=== PATIENT | male | born 1965 | race African-American/Black ===

== ENCOUNTER → 2017-09-26 | Outpatient (CLI) | payer OTHER ==
--- NOTE | 2017-09-26 10:32 | KCIC ---
ABDOMEN COMPLETE History: Abdominal pain Comparison: None. Findings: Multiple sonographic images of the abdomen are submitted. There is no significant abnormality of the limited visualized pancreas although poorly visualized due to bowel gas. There is diffuse coarsening of the echotexture of the liver, no focal hepatic lesion demonstrated. Right lobe of the liver measured 18.4 cm longitudinal. Abdominal aortic caliber is within normal limits up to 2.3 cm proximally. There is segmental visualization of the inferior vena cava. Right kidney measured 11.6 x 6.3 x 5.7 cm. Left kidney measured 10.7 x 5.2 x 5.1 cm. There is no hydronephrosis of either kidney. There is a hypoechoic lesion of the mid left kidney 1.3 x 1.4 x 1.4 cm in size, slight increased through transmission. Gallbladder is present without intraluminal abnormality, wall thickening, pericholecystic fluid. Common bile duct is within normal limits at 0.5 cm. No free fluid is demonstrated. Impression: 1. There is hepatic steatosis and hepatomegaly. 2. There is small left renal cyst. Electronically signed by: Calos Spence MD (09/26/2017 10:28 AM) [facility]
== END | disposition home or self-care (01) ==
LOC: KCIC US 07:48
PROVIDERS: ATTEND Internal Medicine Gastroenterology
DX: K76.0 Fatty (change of) liver, not elsewhere classified (principal); N28.1 Cyst of kidney, acquired
CPT/HCPCS: 76700

== ENCOUNTER → 2021-10-03 | Outpatient (CLI) | payer OTHER ==
[~2021-10-03] MED LIST: ASPI-630 PO; DEXT10TA23 PO; FINA5TAB4 PO; OXYC-325 PO
== END ==
LOC: LAB 10:16
PROVIDERS: ATTEND Surgery
DX: Z01.812 Encounter for preprocedural laboratory examination (principal); Z20.822 Contact with and (suspected) exposure to COVID-19; K42.9 Umbilical hernia without obstruction or gangrene; R22.40 Localized swelling, mass and lump, unspecified lower limb
CPT/HCPCS: U0003; U0005

== ENCOUNTER 2021-10-08 10:41 | Day surgery (SDC) | payer OTHER ==
[~2021-10-08] VITALS: Ht 167.6 cm; Wt 115.0 kg
[~2021-10-08 10:41] MED LIST changes: +HYDROmorphone 2 MG/ML VIAL IVP PRN; +IV RINGERS,LACTATED 1000ML 1,000 ML IV SCH; +MORPHINE SULFATE 2 MG/ML INJ. IVP PRN; -OXYC-325 PO; +PROCHLORPERAZINE 10 MG/2 ML VIAL. IVP PRN; +fentaNYL PF VIAL 100 MCG/2 ML VIAL IVP PRN
[2021-10-08 11:04] VITALS: BP 171/98
[2021-10-08] MEDS ORDERED: LIDOCAINE 2% PF 5 ML VIAL. ONE (12:35)
[2021-10-08] MEDS ORDERED: PROPOFOL 10 MG/ML (20ML) VIAL. IV ONE ×2 (12:35→14:52)
[2021-10-08] MEDS ORDERED: fentaNYL PF VIAL 100 MCG/2 ML VIAL ONE ×2 (12:35→14:36)
[2021-10-08] MEDS ORDERED: LIDOCAINE 1%/EPI 1:100,000 20 ML VIAL. ONE (12:36)
[2021-10-08] MEDS ORDERED: BUPIVACAINE-EPI 0.5% 30 ML VIAL KIT. ONE (12:36)
[2021-10-08] MEDS ORDERED: KETAMINE HCL IN NACL, ISO-OSM 50 MG/5 ML SYRINGE ONE (13:13)
[2021-10-08] MEDS ORDERED: MIDAZOLAM HCL/PF 2 MG/2 ML VIAL. ONE (13:15)
[2021-10-08] MEDS ORDERED: GLYCOPYRROLATE 1 MG/5 ML VIAL. ONE (13:16)
[2021-10-08] MEDS ORDERED: ESMOLOL 100 MG/10 ML VIAL. IVP ONE ×2 (13:24→14:52)
[2021-10-08] MEDS ORDERED: SUCCINYLCHOLINE 200 MG/10 ML VIAL. ONE (13:26)
[2021-10-08] MEDS ORDERED: ROCURONIUM 50 MG/5 ML VIAL. ONE (14:02)
[2021-10-08] MEDS ORDERED: SUGAMMADEX SODIUM 200 MG/2 ML VIAL. IVP ONE (14:15)
[2021-10-08] MEDS ORDERED: PHENYLEPHRINE in 0.9% NACL PF 1 MG/10 ML SYRINGE. IV ONE (14:20)
--- NOTE | 2021-10-08 15:07 | PDOC4 ---
Operative Note Operative Note Operative Note: Preoperative Diagnosis: Umbilical hernia, right thigh mass, right scalp mass Postoperative Diagnosis: Same Procedure: Umbilical hernia pair with mesh, excision of right thigh mass 5 X 3 cm, excision of right scalp mass 4 X 3 cm Surgeon: Carlos [employer] Manager: Ronnie Tompkins MS 4 Anesthesia: General EBL: 20 mL Specimen: Right thigh mass, 5 x 3 cm to pathology; right scalp mass, 4 x 3 cm to pathology Drains: None Complications: None Indication: The patient is a 56-year-old gentleman who was referred with subcutaneous masses of his right thigh and scalp. He requests excision. In addition he has a reducible umbilical hernia. The plan is to proceed with repai r of the hernia and excision of the masses. The risks of surgery were discussed which include bleeding, infection, recurrence, pain, anesthetic risk, potential need for additional surgery procedure. He understands and would like to proceed. Description: The patient was taken the operating room and placed supine in the operating table. General anesthesia was performed. The abdomen is prepped with ChloraPrep and draped with sterile towels, sheets and an Ioban. A curved infraumbilical incision was made in the skin with a scalpel. Cautery dissection was carried down to the fascia. The umbilical tissue was elevated off the fascia exposing a small hernia defect. A preperitoneal plane was developed circumferentially using blunt dissection. A small Ventralex ST mesh was then placed in this preperitoneal plane. The mesh was sutured into position with 0 Prolene in a horizontal mattress fashion. The fascial edges were closed over the mesh with 0 Prolene. The umbilicus was secured back to the fascia with 0 V icryl. The subcutaneous tissue was closed with 3-0 Vicryl and skin approximated 4-0 Monocryl. The skin was infiltrated with half percent Marcaine with epinephrine. Steri-Strips and a sterile dressing were applied. Attention was then directed to the right thigh mass. The skin was prepped and draped in a standard surgical manner. An elliptical incision was made around the border of the mass including some of the redundant skin. Cautery dissection was carried down into the subcutaneous tissues. The mass was comprised of adipose tissue consistent with a lipoma. The mass was mobilized from the surrounding tissues and fully excised and sent to pathology. The mass measured 5 x 3 cm. Hemostasis was achieved with cautery. The subcutaneous tissue was closed with 3-0 Vicryl and skin approximated with 4-0 Monocryl. We then directed attention to the subcutaneous scalp mass located posterior to the right ear. An incision was made overlying the mass. Cautery dissection was carried down into the subcutaneous tissues. The mass was comprised of lobulated adipose tissue consistent with a lipoma. The mass was mobilized from the surrounding tissues and fully excised. The mass measured 4 x 3 cm and was sent to pathology. Hemostasis was achieved with cautery. The subcutaneous tissue was approximated with 3-0 Vicryl and skin closed with 4-0 Monocryl. The skin was infiltrated with half percent Marcaine with epinephrine. Sterile dressings were then applied. The patient tolerated the procedure well and was sent to the recovery room in stable condition. At the end the case all counts were correct. PRASAD PAEZ MD Oct 08, 2021 15:07
[2021-10-08] MEDS ORDERED: OXYC-325 PO (15:09)
--- NOTE | 2021-10-08 15:12 | DISCH ---
DISCHARGE INSTRUCTIONS Condition on Discharge Condition on Discharge: Stable Activity After Discharge Activity Instructions for Disc: Other, see below (No lifting over 20 lbs X 4 weeks, no driving while taking pain meds) Diet after Discharge Diet after Discharge: Regular Wound Incision Care Wound/Incision Care: Other, see below (keep dressings clean and dry X 72 hours, may then remove and shower) Follow-Up Follow up with: Dr Paez in office in 2 weeks, call for appointment [phone] PRASAD PAEZ MD Oct 08, 2021 15:12
[2021-10-08] MEDS ORDERED: oxyCODONE/APAP 5/325 1 TAB TABLET PO ONE (16:45)
[2021-10-08] MEDS ORDERED: oxyCODONE/APAP 5/325 1 TAB TABLET ONE (16:50)
[2021-10-08 17:00] VITALS: BP 153/88
--- NOTE | 2021-10-11 22:30 | PATHOLOGY ---
[facility] Accession Number: [id number] . 01 Material submitted: . PART A: thigh - RIGHT THIGH MASS, 5CM X 3CM. Modifiers: right PART B: head - RIGHT HEAD MASS, 4CM X 3CM. Modifiers: right . 01 Clinical history: . UMBILICAL HERNIA, SCALP MASS, R THIGH MASS UMBILICAL HERNIA REPAIR SCALP EXCISION, R THIGH EXCISION . 02 Diagnosis: A. Skin and subcutaneous tissue, right thigh mass excision: - Lipoma. . B. Segment of fibroadipose and focal attached skeletal muscle tissue, right head mass excision: - Lipoma. (JPM:marie; 10/11/2021) S 10/11/2021 1136 Local . 02 Comment: There is no evidence of malignancy. (JPM:marie; 10/11/2021) . 02 Electronically signed: . Benoit Petty MD, Pathologist NPI- [id number] . 01 Gross description: . A. The specimen is received in formalin, labeled "John Brown, right thigh mass". Received is an ellipse of palacios-brown, wrinkled skin with attached underlying lobulated tissue measuring 4.8 x 3.5 x 3.3 cm in greatest dimensions. Sectioning reveals pale yellow, lobulated cut surfaces with no grossly distinct nodules or lesions. The specimen is submitted representatively in cassettes A1 and A2. . B. The specimen is received in formalin, labeled "John Brown, right head mass". Received is a segment of yellow-talavera, ragged lobulated tissue measuring 3.9 x 3.5 x 2.4 cm in greatest dimensions. The surgical margin is inked. Sectioning reveals pale yellow, lobulated cut surfaces throughout. The specimen is submitted representatively in cassettes B1 and B2. (CAA; 10/10/2021) QAC/QAC 10/10/2021 1123 Local . 02 Pathologist provided ICD-10: D17.39 . 02 CPT . 202126, [id number] Specimen Comment: A courtesy copy of this report has been sent to [phone], [phone] Specimen Comment: [id number] Specimen Comment: Report sent to / DR THAKUR Specimen Comment: A duplicate report has been generated due to demographic updates. Performed at: 01 [facility] [address], [place] [id number] MD Adam Castillo MD Phone: [phone] Performed at: 02 [facility] [address] [place], [place] [id number] MD Benoit Petty MD Phone: [phone]
== END 2021-10-08 17:26 | disposition home or self-care (01) ==
LOC: SURG 10:41
PROVIDERS: ATTEND Surgery
DX: K42.9 Umbilical hernia without obstruction or gangrene (principal); R22.0 Localized swelling, mass and lump, head; R22.41 Localized swelling, mass and lump, right lower limb; D17.39 Benign lipomatous neoplasm of skin and subcutaneous tissue of other sites; N40.0 Benign prostatic hyperplasia without lower urinary tract symptoms; G47.30 Sleep apnea, unspecified; Z79.899 Other long term (current) drug therapy; Z98.890 Other specified postprocedural states; Z79.82 Long term (current) use of aspirin; Z87.891 Personal history of nicotine dependence; Z72.89 Other problems related to lifestyle
CPT/HCPCS: 21012; 27337; 49585; 88304; A4213; A4364; A4930; A6402; C1781; J0330; J0690; J2250; J2370; J2704; J3010; J3490; A4452

== ENCOUNTER 2022-02-15 12:32 | Inpatient (IN) | payer OTHER ==
[~2022-02-15] VITALS: Ht 167.6 cm; Wt 117.9 kg
[~2022-02-15 12:32] MED LIST changes: -HYDROmorphone 2 MG/ML VIAL IVP PRN; -IV RINGERS,LACTATED 1000ML 1,000 ML IV SCH; -MORPHINE SULFATE 2 MG/ML INJ. IVP PRN; +OXYC-325 PO; -PROCHLORPERAZINE 10 MG/2 ML VIAL. IVP PRN; -fentaNYL PF VIAL 100 MCG/2 ML VIAL IVP PRN
[2022-02-15] MEDS ORDERED: HYDROmorphone 2 MG/ML INJ. IVP ONE ×2 (13:15→15:45)
[2022-02-15] MEDS ORDERED: ONDANSETRON PF 4 MG/2 ML VIAL. IVP ONE (13:15)
[2022-02-15] MEDS ORDERED: IV NORMAL SALINE 1000ML BAG 1,000 ML IV ONE (13:15)
--- NOTE | 2022-02-15 13:23 | PHYS DOC ---
Past Medical History Additional Past Medical Histor: pancreatic cyst Past Surgical History: Other Additional Past Surgical Histo: hernia repair, turp Adult General Chief Complaint Chief Complaint: ABDOMINAL PAIN HPI HPI Patient is a 57 year old male presenting to the emergency department for evaluation of abdominal pain nausea and vomiting that has been going on for at least the past 2 to 3 days. He says he has not had a bowel movement or pass gas in the past 3 days as well. He went to [facility] 2 days ago and had labs and imaging done he was told he may have pancreatitis and possible bowel infection and was sent home but he says he is feeling worse. He went to see his primary care provider today and the primary care provider Dr. Soto said that he was in significant pain and that he should not go home and sent him here to our emergency department. Patient says the emesis is nonbloody nonbilious. He appears uncomfortable but is nontoxic with tachycardia hypertension and fever noted. Review of Systems Review of Systems Constitutional: Denies fever or chills [] Eyes: Denies change in visual acuity, redness, or eye pain [] HENT: Denies nasal congestion or sore throat [] Respiratory: Denies cough or shortness of breath [] Cardiovascular: No additional information not addressed in HPI [] GI: + abdominal pain, nausea, vomiting. No bloody stools or diarrhea [] : Denies dysuria or hematuria [] Musculoskeletal: Denies back pain or joint pain [] Integument: Denies rash or skin lesions [] Neurologic: Denies headache, focal weakness or sensory changes [] All other systems were reviewed and found to be within normal limits, except as documented in this note. Current Medications Current Medications Current Medications Medications (Trade) Dose Ordered Sig/Chirag Start Time Stop Time Status Last Admin Dose Admin Hydromorphone HCl (Dilaudid) 1 mg 1X ONCE 02/15/22 13:15 02/15/22 13:17 DC 02/15/22 13:37 1 MG Ondansetron HCl (Zofran) 4 mg 1X ONCE 02/15/22 13:15 02/15/22 13:17 DC 02/15/22 13:34 4 MG Sodium Chloride 1,000 ml @ 1,000 mls/hr 1X ONCE 02/15/22 13:15 02/15/22 14:14 DC 02/15/22 13:30 1,000 MLS/HR Allergies Allergies Allergies Coded Allergies Type Severity Reaction Last Updated Verified No Known Drug Allergies 10/08/21 No Physical Exam Physical Exam Constitutional: Well developed, well nourished, no acute distress, non-toxic appearance. [] HENT: Normocephalic, atraumatic, bilateral external ears normal, oropharynx rene st, no oral exudates, nose normal. [] Eyes: PERRLA, EOMI, conjunctiva normal, no discharge. [] Neck: Normal range of motion, no tenderness, supple, no stridor. [] Cardiovascular:Heart rate regular rhythm, no murmur [] Lungs & Thorax: Bilateral breath sounds clear to auscultation [] Abdomen: Bowel sounds normal, soft, distended with pain in all quadrants but no rebound or guarding. Skin: Warm, dry, no erythema, no rash. [] Back: No tenderness, no CVA tenderness. [] Extremities: No tenderness, no cyanosis, no clubbing, ROM intact, no edema. [] Neurologic: Alert and oriented X 3, normal motor function, normal sensory function, no focal deficits noted. [] Current Patient Data Vital Signs Vital Signs Date Time Temp Pulse Resp B/P (MAP) Pulse Ox O2 Delivery O2 Flow Rate FiO2 02/15/22 13:37 20 92 Room Air 02/15/22 12:42 100.2 110 154/92 (112) 100.2 Lab Values Laboratory Tests Test 02/15/22 13:00 02/15/22 13:15 Urine Collection Type Unknown Urine Color (Auto) Yellow Urine Turbidity Clear Urine pH (Auto) 6.0 (<5.0-8.0) Urine Specific Mobile 1.029 (1.000-1.030) Urine Protein (Auto) 100 mg/dL (Negative) Urine Glucose (Auto)(UA) Negative mg/dL (Negative) Urine Ketones (Auto) 40 mg/dL (Negative) Urine Blood (Auto) Small (Negative) Urine Nitrite Negative (Negative) Urine Bilirubin (Auto) Negative (Negative) Urine Urobilinogen (Auto) Normal mg/dL (Normal) Urine Leukocyte Esterase (Auto) Negative (Negative) Urine RBC 1-2 /HPF (0-2) Urine WBC 20-40 /HPF (0-4) Urine Squamous Epithelial Cells Few /LPF Urine Bacteria 0 /HPF (0-FEW) Urine Mucus Mod /LPF White Blood Count 14.9 x10^3/uL (4.0-11.0) H Red Blood Count 4.61 x10^6/uL (4.30-5.70) Hemoglobin 12.4 g/dL (13.0-17.5) L Hematocrit 37.7 % (39.0-53.0) L Mean Corpuscular Volume 82 fL (79-100) Mean Corpuscular Hemoglobin 27 pg (25-35) Mean Corpuscular Hemoglobin Concent 33 g/dL (31-37) Red Cell Distribution Width 14.5 % (11.5-14.5) Platelet Count 232 x10^3/uL (140-400) Neutrophils (%) (Auto) 83 % (31-73) H Lymphocytes (%) (Auto) 8 % (24-48) L Monocytes (%) (Auto) 9 % (0-9) Eosinophils (%) (Auto) 0 % (0-3) Basophils (%) (Auto) 0 % (0-3) Neutrophils # (Auto) 12.4 x10^3/uL (1.8-7.7) H Lymphocytes # (Auto) 1.2 x10^3/uL (1.0-4.8) Monocytes # (Auto) 1.3 x10^3/uL (0.0-1.1) H Eosinophils # (Auto) 0.0 x10^3/uL (0.0-0.7) Basophils # (Auto) 0.0 x10^3/uL (0.0-0.2) Laboratory Tests 02/15/22 13:15 EKG EKG [] Radiology/Procedures Radiology/Procedures [] Course & Med Decision Making Course & Med Decision Making I will check labs and imaging treat symptoms and reassess. Patient has leukocytosis and ketonuria in addition to his intractable abdominal pain and nausea. Given his failure of outpatient treatment we will plan on admission for further observation and treatment. Patient admitted in stable condition to Dr. Marcos. Eugenio Disclaimer Eugenio Disclaimer This electronic medical record was generated, in whole or in part, using a voice recognition dictation system. Departure Departure Impression: Primary Impression: Intractable abdominal pain Additional Impressions: Leukocytosis Ketonuria Failure of outpatient treatment Disposition: 09 ADMITTED INPATIENT Admitting Physician: SRI Cabrera) Condition: IMPROVED Referrals: YOUNG THAKUR (PCP) Problem Qualifiers BRISSA VANG DO Feb 15, 2022 13:22
[2022-02-15 13:48] LABS: BACTERIA,URINE 0 /HPF (0-FEW); WBC,URINE 20-40 /HPF (0-4)
[2022-02-15 13:59] LABS: BASO % 0 % (0-3); EOS % 0 % (0-3); HEMATOCRIT 37.7 % (39.0-53.0); HEMOGLOBIN 12.4 g/dL (13.0-17.5); LYMPH # 1.2 x10^3/uL (1.0-4.8); LYMPH % 8 % (24-48); MEAN CORPUSCULAR HEMOGLOBIN 27 pg (25-35); MEAN CORPUSCULAR HGB CONC 33 g/dL (31-37); MEAN CORPUSCULAR VOLUME 82 fL (79-100); MONO # 1.3 x10^3/uL (0.0-1.1); MONO % 9 % (0-9); NEUT # 12.4 x10^3/uL (1.8-7.7); NEUT % 83 % (31-73); PLATELET COUNT 232 x10^3/uL (140-400); RED BLOOD COUNT 4.61 x10^6/uL (4.30-5.70); RED CELL DISTRIBUTION WIDTH 14.5 % (11.5-14.5); WHITE BLOOD COUNT 14.9 x10^3/uL (4.0-11.0)
[2022-02-15] MEDS ORDERED: ONDANSETRON PF 4 MG/2 ML VIAL. IVP PRN ×2 (14:45→16:30)
[2022-02-15 14:50] LABS: CALCIUM 8.6 mg/dL (8.5-10.1); GFR 92.9
[2022-02-15 14:55] LABS: ALBUMIN 3.1 g/dL (3.4-5.0); ALBUMIN/GLOBULIN RATIO 0.8 (1.0-1.7); TOTAL BILIRUBIN 0.9 mg/dL (0.2-1.0); TOTAL PROTEIN 7.2 g/dL (6.4-8.2)
[2022-02-15] MEDS ORDERED: IOHEXOL 300 MG/ML 100ML VIAL. IV ONE (15:15)
[2022-02-15] MEDS ORDERED: CONTRAST GIVEN. MC PRN (15:15)
[2022-02-15 16:15] VITALS: BP 151/86
--- NOTE | 2022-02-15 16:24 | PDOC1 ---
History and Physical Date of Service: DOS: DATE: 02/15/22 TIME: 16:24 Chief Complaint: Chief Complain: abdominal pain History of Present Illness: HPI: Patient is a 57 year old male presenting to the emergency department for evaluation of abdominal pain nausea and vomiting that has been going on for at least the past 2 to 3 days. He says he has not had a bowel movement or pass gas in the past 3 days as well. He went to [facility] 2 days ago and had labs and imaging done he was told he may have pancreatitis with multiple cysts and possible bowel infection and was sent home but he says he is feeling worse. He went to see his primary care provider today and the primary care provider Dr. Soto said that he was in significant pain and that he should not go home and sent him here to our emergency department. Patient says the emesis is nonbloody nonbilious. He appears uncomfortable but is nontoxic with tachycardia hypertension and fever noted. Past Medical/Surgical History: PMH/PSH: Additional Past Medical Histor: pancreatic cyst Past Surgical History: Other Additional Past Surgical Histo: hernia repair, turp Allergies: Allergies: Coded Allergies: No Known Drug Allergies (Unverified , 10/08/21) Family History: Family History: HTN Social History: Social History: former smoker; occ alcohol use, denies drug use Current Medications: Current Medications Current Medications Hydromorphone HCl (Dilaudid) 1 mg 1X ONCE IVP Last administered on 02/15/22at 13:37; Start 02/15/22 at 13:15; Stop 02/15/22 at 13:17; Status DC Ondansetron HCl (Zofran) 4 mg 1X ONCE IVP Last administered on 02/15/22at 13:34; Start 02/15/22 at 13:15; Stop 02/15/22 at 13:17; Status DC Sodium Chloride 1,000 ml @ 1,000 mls/hr 1X ONCE IV Last administered on 02/15/22at 13:30; Start 02/15/22 at 13:15; Stop 02/15/22 at 14:14; Status DC Ondansetron HCl (Zofran) 4 mg PRN Q8HRS PRN IVP NAUSEA/VOMITING; Start 02/15/22 at 14:45; Stop 02/16/22 at 14:44 Iohexol (Omnipaque 300 Mg/ml) 75 ml 1X ONCE IV Last administered on 02/15/22at 15:39; Start 02/15/22 at 15:15; Stop 02/15/22 at 15:16; Status DC Info (CONTRAST GIVEN -- Rx MONITORING) 1 each PRN DAILY PRN MC SEE COMMENTS; Start 02/15/22 at 15:15; Stop 02/17/22 at 15:14 Hydromorphone HCl (Dilaudid) 1 mg 1X ONCE IVP Last administered on 02/15/22at 15:55; Start 02/15/22 at 15:45; Stop 02/15/22 at 15:46; Status DC Piperacillin Sod/ Tazobactam Sod (Zosyn Per Pharmacy) 1 each PRN DAILY PRN MC SEE COMMENTS; Start 02/15/22 at 16:30; Status UNV Pantoprazole Sodium (PROTONIX VIAL for IV PUSH) 40 mg DAILYAC IVP ; Start 02/15/22 at 16:30 Polyethylene Glycol (miraLAX PACKET) 17 gm DAILY PO ; Start 02/15/22 at 16:30; Status UNV Multi-Ingredient Mouthwash/Gargle (Gi Cocktail) 20 ml PRN QID PRN PO CHEST PAIN; Start 02/15/22 at 16:30; Status UNV Aspirin (Aspirin Chewable) 81 mg DAILY PO ; Start 02/16/22 at 09:00; Status UNV Finasteride (Proscar) 5 mg DAILY PO ; Start 02/16/22 at 09:00; Status UNV Ondansetron HCl (Zofran) 4 mg PRN Q6HRS PRN IVP NAUSEA/VOMITING; Start 02/15/22 at 16:30; Status UNV Prochlorperazine Edisylate (Compazine) 10 mg PRN Q6HRS PRN IVP NAUSEA/VOMITING; Start 02/15/22 at 16:30; Status UNV Calcium Carbonate/ Glycine (Tums) 500 mg PRN Q3HRS PRN PO UPSET STOMACH; Start 02/15/22 at 16:30; Status UNV Zolpidem Tartrate (Ambien) 5 mg PRN QHS PRN PO INSOMNIA, MAY REPEAT IN 1HR; Start 02/15/22 at 16:30; Status UNV Info (Non-Icu Electrolyte Protocol) 1 ea PRN DAILY PRN MC SEE COMMENTS; Start 02/15/22 at 16:30; Status UNV Morphine Sulfate (Morphine Sulfate) 1 mg PRN Q1HR PRN IV PAIN; Start 02/15/22 at 16:30; Status UNV Morphine Sulfate (Morphine Sulfate) 2 mg PRN Q1HR PRN IV PAIN; Start 02/15/22 at 16:30; Status UNV Acetaminophen (Tylenol) 650 mg PRN Q6HRS PRN PO Headaches, Temp > 101.5F; Start 02/15/22 at 16:30; Status UNV Senna/Docusate Sodium (Senna Plus) 1 tab BID PO ; Start 02/15/22 at 21:00; Status UNV Heparin Sodium (Porcine) (Heparin Sodium) 5,000 unit Q8HRS SQ ; Start 02/15/22 at 22:00; Status UNV Active Scripts Active Percocet 5-325 mg Tablet (Oxycodone HCl/Acetaminophen) 1 Each Tablet 1-2 Tab PO Q4-6HRS PRN MDD 2 Tablet(s) 7 Days Reported Finasteride 5 Mg Tablet 5 Mg PO DAILY Aspirin 81 Mg Tab.chew 81 Mg PO DAILY Adderall 10 Mg Tablet (Dextroamphetamine/Amphetamine) 10 Mg Tablet 10 Mg PO BID ROS: Review of Systems Review of System REVIEW OF SYSTEMS: GENERAL: Denies weakness SKIN: No bruising, hair changes or rashes. EYES: No blurred, double or loss of vision. NOSE AND THROAT: No history of nosebleeds, hoarseness or sore throat. HEART: No history of palpitations, chest pain or shortness of breath on exertion. LUNGS: Denies cough, hemoptysis, wheezing or shortness of breath. GASTROINTESTINAL: Denies changes in appetite, nausea, vomiting, diarrhea or constipation. GENITOURINARY: No history of frequency, urgency, hesitancy or nocturia. NEUROLOGIC: Denies history of numbness, tingling, or tremor. PSYCHIATRIC: No history of panic, anxiety or depression. ENDOCRINE: No history of heat or cold intolerance, polyuria or polydipsia. EXTREMITIES: Denies joint pain, pain on walking or stiffness. Physical Exam: Vital Signs: Vital Signs Date Time Temp Pulse Resp B/P (MAP) Pulse Ox O2 Delivery O2 Flow Rate FiO2 02/15/22 15:55 18 99 Nasal Cannula 1.0 02/15/22 15:30 88 138/81 (100) 02/15/22 12:42 100.2 100.2 Physcial Exam: GEN: No apparent distress. Alert and oriented HEENT: Normal cephalic, atraumatic, external auditory canals are patent EYES: Extraocular muscles are intact, pupil are equally round and reactive to light and accommodation MUSCULOSKELETAL: Well developed , well nourished, good range of motion ENDOCRINE: No thyromegaly was palpated LYMPHATICS: No cervical chain or axillary nodes were noted HEMATOPOIETIC: No bruising NECK: Supple, no JVD, no thyromegaly was noted LUNGS: Clear to auscultation in all lung weeks without rhonchi or wheezing HEART: RRR, S!, S2 present. Peripheral pulses intact, no obvious murmurs noted ABDOMEN: Soft, nontender. Positive bowel sounds, no organomegaly, normal bowel sounds EXTREMITIES: Without clubbing, cyanosis, or edema. Pedal pulses intact. Negative Homans sign NEUROLOGIC: Normal speech and tone. A&O x 3, moves all extremities, no obvious focal deficits PSYCHIATRIC: Normal affect, normal mood. Stable SKIN: No ulcerations or rashes, good skin turgor, no jaundice VASCULAR: Good capillary refill, neurovascular bundle appears to be intact Labs: Labs: Laboratory Tests Test 02/15/22 13:00 02/15/22 13:15 02/15/22 14:15 Urine Collection Type Unknown Urine Color (Auto) Yellow Urine Turbidity Clear Urine pH (Auto) 6.0 (<5.0-8.0) Urine Specific [place] 1.029 (1.000-1.030) Urine Protein (Auto) 100 mg/dL (Negative) Urine Glucose (Auto)(UA) Negative mg/dL (Negative) Urine Ketones (Auto) 40 mg/dL (Negative) Urine Blood (Auto) Small (Negative) Urine Nitrite Negative (Negative) Urine Bilirubin (Auto) Negative (Negative) Urine Urobilinogen (Auto) Normal mg/dL (Normal) Urine Leukocyte Esterase (Auto) Negative (Negative) Urine RBC 1-2 /HPF (0-2) Urine WBC 20-40 /HPF (0-4) Urine Squamous Epithelial Cells Few /LPF Urine Bacteria 0 /HPF (0-FEW) Urine Mucus Mod /LPF White Blood Count 14.9 x10^3/uL (4.0-11.0) Red Blood Count 4.61 x10^6/uL (4.30-5.70) Hemoglobin 12.4 g/dL (13.0-17.5) Hematocrit 37.7 % (39.0-53.0) Mean Corpuscular Volume 82 fL (79-100) Mean Corpuscular Hemoglobin 27 pg (25-35) Mean Corpuscular Hemoglobin Concent 33 g/dL (31-37) Red Cell Distribution Width 14.5 % (11.5-14.5) Platelet Count 232 x10^3/uL (140-400) Neutrophils (%) (Auto) 83 % (31-73) Lymphocytes (%) (Auto) 8 % (24-48) Monocytes (%) (Auto) 9 % (0-9) Eosinophils (%) (Auto) 0 % (0-3) Basophils (%) (Auto) 0 % (0-3) Neutrophils # (Auto) 12.4 x10^3/uL (1.8-7.7) Lymphocytes # (Auto) 1.2 x10^3/uL (1.0-4.8) Monocytes # (Auto) 1.3 x10^3/uL (0.0-1.1) Eosinophils # (Auto) 0.0 x10^3/uL (0.0-0.7) Basophils # (Auto) 0.0 x10^3/uL (0.0-0.2) Sodium Level 138 mmol/L (136-145) Potassium Level 4.0 mmol/L (3.5-5.1) Chloride Level 99 mmol/L (98-107) Carbon Dioxide Level 31 mmol/L (21-32) Anion Gap 8 (6-14) Blood Urea Nitrogen 10 mg/dL (8-26) Creatinine 1.0 mg/dL (0.7-1.3) Estimated GFR (Cockcroft-Gault) 92.9 BUN/Creatinine Ratio 10 (6-20) Glucose Level 117 mg/dL (70-99) Calcium Level 8.6 mg/dL (8.5-10.1) Total Bilirubin 0.9 mg/dL (0.2-1.0) Aspartate Amino Transf (AST/SGOT) 13 U/L (15-37) Alanine Aminotransferase (ALT/SGPT) 22 U/L (16-63) Alkaline Phosphatase 65 U/L (46-116) Total Protein 7.2 g/dL (6.4-8.2) Albumin 3.1 g/dL (3.4-5.0) Albumin/Globulin Ratio 0.8 (1.0-1.7) Lipase 120 U/L (73-393) Laboratory Tests Test 02/15/22 13:00 02/15/22 13:15 02/15/22 14:15 Urine Collection Type Unknown Urine Color (Auto) Yellow Urine Turbidity Clear Urine pH (Auto) 6.0 (<5.0-8.0) Urine Specific [place] 1.029 (1.000-1.030) Urine Protein (Auto) 100 mg/dL (Negative) Urine Glucose (Auto)(UA) Negative mg/dL (Negative) Urine Ketones (Auto) 40 mg/dL (Negative) Urine Blood (Auto) Small (Negative) Urine Nitrite Negative (Negative) Urine Bilirubin (Auto) Negative (Negative) Urine Urobilinogen (Auto) Normal mg/dL (Normal) Urine Leukocyte Esterase (Auto) Negative (Negative) Urine RBC 1-2 /HPF (0-2) Urine WBC 20-40 /HPF (0-4) Urine Squamous Epithelial Cells Few /LPF Urine Bacteria 0 /HPF (0-FEW) Urine Mucus Mod /LPF White Blood Count 14.9 x10^3/uL (4.0-11.0) Red Blood Count 4.61 x10^6/uL (4.30-5.70) Hemoglobin 12.4 g/dL (13.0-17.5) Hematocrit 37.7 % (39.0-53.0) Mean Corpuscular Volume 82 fL (79-100) Mean Corpuscular Hemoglobin 27 pg (25-35) Mean Corpuscular Hemoglobin Concent 33 g/dL (31-37) Red Cell Distribution Width 14.5 % (11.5-14.5) Platelet Count 232 x10^3/uL (140-400) Neutrophils (%) (Auto) 83 % (31-73) Lymphocytes (%) (Auto) 8 % (24-48) Monocytes (%) (Auto) 9 % (0-9) Eosinophils (%) (Auto) 0 % (0-3) Basophils (%) (Auto) 0 % (0-3) Neutrophils # (Auto) 12.4 x10^3/uL (1.8-7.7) Lymphocytes # (Auto) 1.2 x10^3/uL (1.0-4.8) Monocytes # (Auto) 1.3 x10^3/uL (0.0-1.1) Eosinophils # (Auto) 0.0 x10^3/uL (0.0-0.7) Basophils # (Auto) 0.0 x10^3/uL (0.0-0.2) Sodium Level 138 mmol/L (136-145) Potassium Level 4.0 mmol/L (3.5-5.1) Chloride Level 99 mmol/L (98-107) Carbon Dioxide Level 31 mmol/L (21-32) Anion Gap 8 (6-14) Blood Urea Nitrogen 10 mg/dL (8-26) Creatinine 1.0 mg/dL (0.7-1.3) Estimated GFR (Cockcroft-Gault) 92.9 BUN/Creatinine Ratio 10 (6-20) Glucose Level 117 mg/dL (70-99) Calcium Level 8.6 mg/dL (8.5-10.1) Total Bilirubin 0.9 mg/dL (0.2-1.0) Aspartate Amino Transf (AST/SGOT) 13 U/L (15-37) Alanine Aminotransferase (ALT/SGPT) 22 U/L (16-63) Alkaline Phosphatase 65 U/L (46-116) Total Protein 7.2 g/dL (6.4-8.2) Albumin 3.1 g/dL (3.4-5.0) Albumin/Globulin Ratio 0.8 (1.0-1.7) Lipase 120 U/L (73-393) Assessment/Plan Assessment/Plan Intractable abdominal pain, constipation, sepsis, pancreatitis with fluid collection, partial splenic vein thrombosis -2 to 3-day history abdominal pain. Constipation. Failed outpatient treatment -Imaging on presentation here with fluid collections in pancreas. -We will provide as needed pain control. -Consult interventional radiology to see if any drainable fluid collection -If nothing will likely need GI consult -Home meds as indicated -DVT prophylaxis -We will do full liquid diet -Laxatives Justifications for Admission Other Justification AJAY FRAZIER MD Feb 15, 2022 16:24
--- NOTE | 2022-02-15 16:26 | RAD ---
Study: CT abdomen/pelvis with intravenous contrast Indication: Epigastric abdominal pain. History of pancreatitis. Comparison: None. Technique: Helical CT imaging performed of the abdomen and pelvis after the intravenous administratio n of 75 cc contrast. Sagittal and coronal reformats were obtained. One or more of the following individualized dose reduction techniques were utilized for this examinat ion: 1. Automated exposure control 2. Adjustment of the mA and/or kV according to patient size 3. Use of iterative reconstruction technique. Findings: Asymmetric elevation of the left hemidiaphragm with overlying volume loss. Minimal basilar volume los s on the right. Hepatic steatosis. Low-attenuation focus within the more anterior aspect of the liver measuring 0.8 c m on image 24 series 2. This is incompletely characterized based on size but is statistically most li annie benign. No CT manifestations of acute cholecystitis. Nondilated biliary tree. Unremarkable adren al glands. The spleen is within normal limits for size. Pancreatic/peripancreatic fluid collection along the cephalad margin of the pancreatic tail measuring 7.3 x 6.3 x 6.8 cm. Internal density of approximately 15 Hounsfield units. The collection is walled off. Surrounding inflammation and a small amount of free fluid. Small focus of mineralization along t he cephalad margin of the fluid collection. Relatively homogeneous attenuation along the rest of the pancreas and without significant peripancreatic inflammation elsewhere. Nondilated main pancreatic du ct. Left larger than right hypoattenuating foci scattered throughout the kidneys. The larger of these paris sure cystic density. Many are too small to characterize. No nephrolithiasis or collecting system dila tation. Unremarkable bladder. Prostatomegaly measuring close to 6 cm in maximum dimension. No significant abnormality of the colon. Normal appendix. No pathologic dilatation of small bowel. In flammatory changes associated with the pancreatic abnormalities along the stomach greater curvature a t the fundus/proximal body. The fundus of the stomach is mildly deformed by the peripancreatic fluid collection. Mild calcific atherosclerosis. Patent central portal veins and SMV. Possible thrombosis of a portion of the splenic vein approaching the hilum, reference images 26 through 28 series 2. No evidence for a pseudoaneurysm. No significant lymph node enlargement. No pneumoperitoneum. There is scarring around the umbilicus. N o complex body wall hernia. Scattered degenerative/chronic osseous findings to include findings often seen with diffuse idiopathi c skeletal hyperostosis. Impression: 1. Active inflammation and a small amount of free fluid adjacent to a walled-off fluid collection as sociated with the tail of the pancreas measuring 7.3 x 6.3 x 6.8 cm. The rest of the pancreas is with in normal limits. This could be a bland collection such as an evolving pseudocyst with residual infla mmation from pancreatitis, mild active pancreatitis at the pancreatic tail superimposed upon a pseudo cyst or walled-off necrosis. An infected pseudocyst is possible but there is no internal gas. Though felt unlikely, follow-up is recommended to exclude a cystic malignancy. 2. Possible thrombosis of a splenic vein branch adjacent to the fluid collection though the majority of the splenic vein is patent. No splenic infarct or pseudoaneurysm. 3. Hepatic steatosis. 4. Multiple renal cystic foci the larger of which appear simple. Several are too small to characteri ze. 5. Prostatomegaly. Electronically signed by: TATIANA VU MD (02/15/2022 4:23 PM) [facility]
[2022-02-15] MEDS ORDERED: ZOLPIDEM 5 MG TABLET. PO PRN (16:30)
[2022-02-15] MEDS ORDERED: PROCHLORPERAZINE 10 MG/2 ML VIAL. IVP PRN (16:30)
[2022-02-15] MEDS ORDERED: PIP/TAZO PER PHARMACY MC PRN (16:30)
[2022-02-15] MEDS: POLYETHYLENE GLYCOL 3350 17 GM PACKET. PO SCH (16:30)
[2022-02-15] MEDS ORDERED: LIDO:MAALOX 1:1 20 ML SINGLE DOSE. PO PRN (16:30)
[2022-02-15] MEDS ORDERED: ELECTROLYTE (NON-ICU) PROTOCOL. MC PRN (16:30)
[2022-02-15] MEDS: PANTOPRAZOLE IV PUSH 40 MG VIAL. IVP SCH (16:30)
[2022-02-15] MEDS ORDERED: CALCIUM CARBONATE 500 MG TAB.CHEW PO PRN (16:30)
[2022-02-15] MEDS: HEPARIN for SUB-Q USE 5,000 UNIT/ML VIAL. SQ SCH ×2 (16:45→22:00)
[2022-02-15] MEDS: PIPERACILLIN/TAZOBACTAM 3.375 GM in IV NORMAL SALINE 50ML 50 ML IV SCH (17:25)
[2022-02-15] MEDS: MORPHINE SULFATE 2 MG/ML INJ. IV PRN ×2 (17:32→20:00)
[2022-02-15 19:00] VITALS: BP 139/86
[2022-02-15] MEDS: SENNOSIDES/DOCUSATE 8.6/50MG TABLET. PO SCH (20:44)
[2022-02-15 23:00] VITALS: BP 114/73
[2022-02-16] MEDS: PIPERACILLIN/TAZOBACTAM 3.375 GM in IV NORMAL SALINE 50ML 50 ML IV SCH ×4 (00:14→19:43)
[2022-02-16] MEDS: MORPHINE SULFATE 2 MG/ML INJ. IV PRN ×4 (00:16→08:44)
[2022-02-16 03:00] VITALS: BP 131/82
[2022-02-16] MEDS: HEPARIN for SUB-Q USE 5,000 UNIT/ML VIAL. SQ SCH ×3 (05:03→22:00)
[2022-02-16 07:00] VITALS: BP 100/79
--- NOTE | 2022-02-16 07:00 | NUR ---
Report received from [facility], will continue to care for patient. Pt resting in bed, no other needs.
[2022-02-16] MEDS: PANTOPRAZOLE IV PUSH 40 MG VIAL. IVP SCH (08:42)
[2022-02-16] MEDS: SENNOSIDES/DOCUSATE 8.6/50MG TABLET. PO SCH ×2 (09:00→20:47)
[2022-02-16] MEDS: FINASTERIDE 5 MG TABLET. PO SCH (09:00)
[2022-02-16] MEDS: ASPIRIN CHEWABLE 81 MG TABLET. PO SCH (09:00)
[2022-02-16] MEDS: POLYETHYLENE GLYCOL 3350 17 GM PACKET. PO SCH (09:00)
[2022-02-16 09:14] LABS: BASO % 0 % (0-3); EOS % 0 % (0-3); HEMATOCRIT 35.9 % (39.0-53.0); HEMOGLOBIN 11.6 g/dL (13.0-17.5); LYMPH # 0.8 x10^3/uL (1.0-4.8); LYMPH % 7 % (24-48); MEAN CORPUSCULAR HEMOGLOBIN 27 pg (25-35); MEAN CORPUSCULAR HGB CONC 32 g/dL (31-37); MEAN CORPUSCULAR VOLUME 83 fL (79-100); MONO % 9 % (0-9); NEUT # 9.1 x10^3/uL (1.8-7.7); NEUT % 83 % (31-73); PLATELET COUNT 211 x10^3/uL (140-400); RED BLOOD COUNT 4.34 x10^6/uL (4.30-5.70); RED CELL DISTRIBUTION WIDTH 14.5 % (11.5-14.5)
[2022-02-16 09:48] LABS: ALBUMIN 2.8 g/dL (3.4-5.0); ALBUMIN/GLOBULIN RATIO 0.6 (1.0-1.7); CALCIUM 9.1 mg/dL (8.5-10.1); GFR 92.9; POTASSIUM 3.6 mmol/L (3.5-5.1); TOTAL BILIRUBIN 0.7 mg/dL (0.2-1.0); TOTAL PROTEIN 7.7 g/dL (6.4-8.2)
[2022-02-16 11:00] VITALS: BP 146/75
[2022-02-16] MEDS: fentaNYL PF VIAL 100 MCG/2 ML VIAL IVP PRN ×3 (14:39→21:48)
[2022-02-16 15:00] VITALS: BP 138/74
--- NOTE | 2022-02-16 16:28 | RAD ---
COMPLETE ABDOMINAL ULTRASOUND Clinical History: Reason: panc cysts seen on ct, hepatic steatosis; splenic thrombosis further charac Comparison: CT abdomen and pelvis of contrast, prior day. Technique: Sonographic examination of the abdomen was performed and multiple grayscale and color Dopp ler static images were obtained. Findings: The liver is mildly increased in echogenicity. There is decreased through-transmission. There is a he patic lobe cyst measuring 1.1 x 0.8 cm. The liver measures 18.4 cm. Ultrasound is not sensitive for d etecting solid liver lesions. Portal flow is hepatopetal. The common bile duct is normal in caliber, measuring 6 mm in diameter. There is no gallbladder wall thickening. Per report, sonographic Calero sign is negative. There is no cholelithiasis or pericholecystic fluid. The pancreas is obscured due to overlying bowel gas. The right kidney is normal in echotexture and measures 13.1. The left kidney is normal in echotextur e and measures 12.5. Corticomedullary differentiation is preserved. There is no hydronephrosis. There is an interpolar right renal cyst measuring 1.4 cm. There are several left renal cysts, largest rhonda ures 2.2 cm. These renal cysts do not require follow-up. The spleen is not well seen. The spleen size appears normal. There is a fluid collection adjacent to the spleen better characterized on prior CT measuring 6.9 x 6.8 cm. The main splenic vein is patent. The proximal abdominal aorta is normal caliber. The remainder of the aorta and IVC are obscured due t o overlying bowel gas. IMPRESSION: 1. The splenic vein is patent. 2. Fatty infiltration of the liver. Mild hepatomegaly. 3. Midline structures are obscured due to overlying bowel gas. 4. There is a fluid collection adjacent to the spleen better characterized on prior CT. Electronically signed by: Carlos Lujan MD (02/16/2022 4:26 PM) [id number]
[2022-02-16 19:00] VITALS: BP 136/74
--- NOTE | 2022-02-16 21:19 | PDOC ---
[employer] PROGRESS NOTE Date of Service DOS: DATE: 02/16/22 TIME: 21:16 Chief Complaint Chief Complaint Assessment/Plan Intractable abdominal pain, constipation, sepsis, pancreatitis with fluid collection, partial splenic vein thrombosis -2 to 3-day history abdominal pain. Constipation. Failed outpatient treatment -Imaging on presentation here with fluid collections in pancreas. -We will provide as needed pain control. -Consult interventional radiology to see if any drainable fluid collection -If nothing will likely need GI consult -Home meds as indicated -DVT prophylaxis -We will do full liquid diet -Laxatives History of Present Illness History of Present Illness 02/16 patient evaluated examined at bedside. Complaining of ongoing abdominal pain. However much more controlled. IR consult pending. Informed patient may not be able to be seen by them until Friday as not an emergency and he underst ands this. Continue current otherwise. Discussed with bedside RN Vitals/I&O Vitals/I&O: Vital Signs Date Time Temp Pulse Resp B/P (MAP) Pulse Ox O2 Delivery O2 Flow Rate FiO2 02/16/22 19:00 101.6 95 18 136/74 (94) 92 Room Air 101.6 02/16/22 08:44 3.0 I & O 02/15/22 02/15/22 02/16/22 15:00 23:00 07:00 Intake Total 1250 ml 0 ml Balance 1250 ml 0 ml Physical Exam General: Alert, Oriented X3, Cooperative Heart: Regular rate, Normal S1, Normal S2 Lungs: Clear Abdomen: Other (diffusely tender) Extremities: No edema, Normal pulses Skin: No significant lesion Labs Labs: Laboratory Tests Test 02/16/22 08:00 White Blood Count 11.0 x10^3/uL (4.0-11.0) Red Blood Count 4.34 x10^6/uL (4.30-5.70) Hemoglobin 11.6 g/dL (13.0-17.5) Hematocrit 35.9 % (39.0-53.0) Mean Corpuscular Volume 83 fL (79-100) Mean Corpuscular Hemoglobin 27 pg (25-35) Mean Corpuscular Hemoglobin Concent 32 g/dL (31-37) Red Cell Distribution Width 14.5 % (11.5-14.5) Platelet Count 211 x10^3/uL (140-400) Neutrophils (%) (Auto) 83 % (31-73) Lymphocytes (%) (Auto) 7 % (24-48) Monocytes (%) (Auto) 9 % (0-9) Eosinophils (%) (Auto) 0 % (0-3) Basophils (%) (Auto) 0 % (0-3) Neutrophils # (Auto) 9.1 x10^3/uL (1.8-7.7) Lymphocytes # (Auto) 0.8 x10^3/uL (1.0-4.8) Monocytes # (Auto) 1.0 x10^3/uL (0.0-1.1) Eosinophils # (Auto) 0.0 x10^3/uL (0.0-0.7) Basophils # (Auto) 0.0 x10^3/uL (0.0-0.2) Sodium Level 139 mmol/L (136-145) Potassium Level 3.6 mmol/L (3.5-5.1) Chloride Level 101 mmol/L (98-107) Carbon Dioxide Level 30 mmol/L (21-32) Anion Gap 8 (6-14) Blood Urea Nitrogen 10 mg/dL (8-26) Creatinine 1.0 mg/dL (0.7-1.3) Estimated GFR (Cockcroft-Gault) 92.9 BUN/Creatinine Ratio 10 (6-20) Glucose Level 108 mg/dL (70-99) Calcium Level 9.1 mg/dL (8.5-10.1) Total Bilirubin 0.7 mg/dL (0.2-1.0) Aspartate Amino Transf (AST/SGOT) 10 U/L (15-37) Alanine Aminotransferase (ALT/SGPT) 21 U/L (16-63) Alkaline Phosphatase 61 U/L (46-116) Total Protein 7.7 g/dL (6.4-8.2) Albumin 2.8 g/dL (3.4-5.0) Albumin/Globulin Ratio 0.6 (1.0-1.7) Assessment and Plan Assessmemt and Plan Problems Medical Problems: (1) Failure of outpatient treatment Status: Acute (2) Intractable abdominal pain Status: Acute (3) Ketonuria Status: Acute (4) Leukocytosis Status: Acute Comment Review of Relevant I have reviewed the following items dalia (where applicable) has been applied. Medications: Current Medications Medications (Trade) Dose Ordered Sig/Chirag Route PRN Reason Start Time Stop Time Status Last Admin Dose Admin Fentanyl Citrate (Fentanyl 2ml Vial) 75 mcg PRN Q2HR PRN IVP PAIN 02/16/22 11:00 02/16/22 19:47 Justifications for Admission Other Justification AJAY FRAZIER MD Feb 16, 2022 21:19
[2022-02-16 22:59] VITALS: BP 124/77
[2022-02-17] MEDS: PIPERACILLIN/TAZOBACTAM 3.375 GM in IV NORMAL SALINE 50ML 50 ML IV SCH ×4 (00:19→17:38)
[2022-02-17] MEDS: MORPHINE SULFATE 2 MG/ML INJ. IV PRN (00:20)
[2022-02-17 03:00] VITALS: BP 129/72
[2022-02-17] MEDS: fentaNYL PF VIAL 100 MCG/2 ML VIAL IVP PRN ×6 (03:50→19:45)
[2022-02-17] MEDS: HEPARIN for SUB-Q USE 5,000 UNIT/ML VIAL. SQ SCH ×3 (06:00→20:51)
[2022-02-17 07:00] VITALS: BP 126/70
[2022-02-17] MEDS: SENNOSIDES/DOCUSATE 8.6/50MG TABLET. PO SCH ×2 (09:00→20:51)
[2022-02-17] MEDS: FINASTERIDE 5 MG TABLET. PO SCH (09:00)
[2022-02-17] MEDS: ASPIRIN CHEWABLE 81 MG TABLET. PO SCH (09:00)
[2022-02-17] MEDS: POLYETHYLENE GLYCOL 3350 17 GM PACKET. PO SCH (09:00)
[2022-02-17] MEDS: PANTOPRAZOLE IV PUSH 40 MG VIAL. IVP SCH (09:17)
[2022-02-17] MEDS: ACETAMINOPHEN 325 MG TABLET. PO PRN ×2 (09:17→19:44)
[2022-02-17 11:00] VITALS: BP 117/74
--- NOTE | 2022-02-17 14:05 | PDOC2 ---
CONSULT Date of Consult Date of Consult DATE: 02/17/22 TIME: 13:55 Reason for Consult Reason for Consult: Periumbilical abdominal pain, pancreatitis with a pancreatic cyst History of Present Illness Reason for Visit: This is a pleasant 57-year-old gentleman who presents with several days of periumbilical abdominal pain radiating through to the back. Associated with nausea but no vomiting. 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 No other masses appreciated. Curiously , he describes a history of back in 2012 where he had a similar cyst that was asymptomatic but found incidentally on imaging and was drained with what sounds like endoscopic ultrasound. He had no further symptoms or problems until now. He does not have any risk factors for pancreatitis. He does not have a history of gallstones or biliary disease and does not drink alcohol. He is not taking any medicines which are associated with pancreatitis. Normally he denies any significant chronic GI complaints such as pain, nausea or indigestion. Past Medical History GI: Other (Pancreatic cyst) Current Problem List Problem List Problems Medical Problems: (1) Failure of outpatient treatment Status: Acute (2) Intractable abdominal pain Status: Acute (3) Ketonuria Status: Acute (4) Leukocytosis Status: Acute Current Medications Current Medications Current Medications Hydromorphone HCl (Dilaudid) 1 mg 1X ONCE IVP Last administered on 02/15/22at 13:37; Start 02/15/22 at 13:15; Stop 02/15/22 at 13:17; Status DC Ondansetron HCl (Zofran) 4 mg 1X ONCE IVP Last administered on 02/15/22at 13:34; Start 02/15/22 at 13:15; Stop 02/15/22 at 13:17; Status DC Sodium Chloride 1,000 ml @ 1,000 mls/hr 1X ONCE IV Last administered on 02/15/22at 13:30; Start 02/15/22 at 13:15; Stop 02/15/22 at 14:14; Status DC Ondansetron HCl (Zofran) 4 mg PRN Q8HRS PRN IVP NAUSEA/VOMITING; Start 02/15/22 at 14:45; Stop 02/16/22 at 14:44; Status DC Iohexol (Omnipaque 300 Mg/ml) 75 ml 1X ONCE IV Last administered on 02/15/22at 15:39; Start 02/15/22 at 15:15; Stop 02/15/22 at 15:16; Status DC Info (CONTRAST GIVEN -- Rx MONITORING) 1 each PRN DAILY PRN MC SEE COMMENTS; Start 02/15/22 at 15:15; Stop 02/17/22 at 15:14 Hydromorphone HCl (Dilaudid) 1 mg 1X ONCE IVP Last administered on 02/15/22at 15:55; Start 02/15/22 at 15:45; Stop 02/15/22 at 15:46; Status DC Piperacillin Sod/ Tazobactam Sod (Zosyn Per Pharmacy) 1 each PRN DAILY PRN MC SEE COMMENTS; Start 02/15/22 at 16:30 Pantoprazole Sodium (PROTONIX VIAL for IV PUSH) 40 mg DAILYAC IVP Last administered on 02/17/22at 09:17; Start 02/15/22 at 16:30 Polyethylene Glycol (miraLAX PACKET) 17 gm DAILY PO ; Start 02/15/22 at 16:30 Multi-Ingredient Mouthwash/Gargle (Gi Cocktail) 20 ml PRN QID PRN PO CHEST P AIN; Start 02/15/22 at 16:30 Aspirin (Aspirin Chewable) 81 mg DAILY PO ; Start 02/16/22 at 09:00 Finasteride (Proscar) 5 mg DAILY PO ; Start 02/16/22 at 09:00 Ondansetron HCl (Zofran) 4 mg PRN Q6HRS PRN IVP NAUSEA/VOMITING; Start 02/15/22 at 16:30 Prochlorperazine Edisylate (Compazine) 10 mg PRN Q6HRS PRN IVP NAUSEA/VOMITING 2ND CHOICE; Start 02/15/22 at 16:30 Calcium Carbonate/ Glycine (Tums) 500 mg PRN Q3HRS PRN PO UPSET STOMACH; Start 02/15/22 at 16:30 Zolpidem Tartrate (Ambien) 5 mg PRN QHS PRN PO INSOMNIA, MAY REPEAT IN 1HR; Start 02/15/22 at 16:30 Info (Non-Icu Electrolyte Protocol) 1 ea PRN DAILY PRN MC SEE COMMENTS; Start 02/15/22 at 16:30 Morphine Sulfate (Morphine Sulfate) 1 mg PRN Q1HR PRN IV PAIN-SEE COMMENTS Last administered on 02/15/22at 20:00; Start 02/15/22 at 16:30 Morphine Sulfate (Morphine Sulfate) 2 mg PRN Q1HR PRN IV PAIN-SEE COMMENTS Last administered on 02/17/22at 00:20; Start 02/15/22 at 16:30 Acetaminophen (Tylenol) 650 mg PRN Q6HRS PRN PO Headaches, Temp > 101.5F Last administered on 02/17/22at 09:17; Start 02/15/22 at 16:30 Senna/Docusate Sodium (Senna Plus) 1 tab BID PO ; Start 02/15/22 at 21:00 Heparin Sodium (Porcine) (Heparin Sodium) 5,000 unit Q8HRS SQ ; Start 02/15/22 at 16:45 Piperacillin Sod/ Tazobactam Sod 3.375 gm/Sodium Chloride 50 ml @ 100 mls/hr Q6HRS IV Last administered on 02/17/22at 13:30; Start 02/15/22 at 17:00 Fentanyl Citrate (Fentanyl 2ml Vial) 75 mcg PRN Q2HR PRN IVP PAIN Last administered on 02/17/22at 13:29; Start 02/16/22 at 11:00 Active Scripts Active Percocet 5-325 mg Tablet (Oxycodone HCl/Acetaminophen) 1 Each Tablet 1-2 Tab PO Q4-6HRS PRN MDD 2 Tablet(s) 7 Days Reported Finasteride 5 Mg Tablet 5 Mg PO DAILY Aspirin 81 Mg Tab.chew 81 Mg PO DAILY Adderall 10 Mg Tablet (Dextroamphetamine/Amphetamine) 10 Mg Tablet 10 Mg PO BID Allergies Allergies: Coded Allergies: No Known Drug Allergies (Unverified , 10/08/21) Physical Exam General: Alert, Oriented X3 HEENT: Atraumatic, PERRLA Lungs: Clear to auscultation Heart: Regular rate, Normal S1, Normal S2 Abdomen: Normal bowel sounds, Soft, No masses, Other (Mild periumbilical tenderness, obesity) Extremities: No clubbing, No cyanosis Neuro: Normal speech Psych/Mental Status: Mental status NL Vitals VITALS Vital Signs Date Time Temp Pulse Resp B/P (MAP) Pulse Ox O2 Delivery O2 Flow Rate FiO2 02/17/22 13:29 Room Air 02/17/22 11:00 98.6 99 18 117/74 (88) 97 98.6 02/17/22 04:20 3.0 Labs Labs Laboratory Tests Test 02/15/22 14:15 02/16/22 08:00 Sodium Level 138 mmol/L (136-145) 139 mmol/L (136-145) Potassium Level 4.0 mmol/L (3.5-5.1) 3.6 mmol/L (3.5-5.1) Chloride Level 99 mmol/L (98-107) 101 mmol/L (98-107) Carbon Dioxide Level 31 mmol/L (21-32) 30 mmol/L (21-32) Anion Gap 8 (6-14) 8 (6-14) Blood Urea Nitrogen 10 mg/dL (8-26) 10 mg/dL (8-26) Creatinine 1.0 mg/dL (0.7-1.3) 1.0 mg/dL (0.7-1.3) Estimated GFR (Cockcroft-Gault) 92.9 92.9 BUN/Creatinine Ratio 10 (6-20) 10 (6-20) Glucose Level 117 mg/dL (70-99) 108 mg/dL (70-99) Calcium Level 8.6 mg/dL (8.5-10.1) 9.1 mg/dL (8.5-10.1) Total Bilirubin 0.9 mg/dL (0.2-1.0) 0.7 mg/dL (0.2-1.0) Aspartate Amino Transf (AST/SGOT) 13 U/L (15-37) 10 U/L (15-37) Alanine Aminotransferase (ALT/SGPT) 22 U/L (16-63) 21 U/L (16-63) Alkaline Phosphatase 65 U/L (46-116) 61 U/L (46-116) Total Protein 7.2 g/dL (6.4-8.2) 7.7 g/dL (6.4-8.2) Albumin 3.1 g/dL (3.4-5.0) 2.8 g/dL (3.4-5.0) Albumin/Globulin Ratio 0.8 (1.0-1.7) 0.6 (1.0-1.7) Lipase 120 U/L (73-393) White Blood Count 11.0 x10^3/uL (4.0-11.0) Red Blood Count 4.34 x10^6/uL (4.30-5.70) Hemoglobin 11.6 g/dL (13.0-17.5) Hematocrit 35.9 % (39.0-53.0) Mean Corpuscular Volume 83 fL (79-100) Mean Corpuscular Hemoglobin 27 pg (25-35) Mean Corpuscular Hemoglobin Concent 32 g/dL (31-37) Red Cell Distribution Width 14.5 % (11.5-14.5) Platelet Count 211 x10^3/uL (140-400) Neutrophils (%) (Auto) 83 % (31-73) Lymphocytes (%) (Auto) 7 % (24-48) Monocytes (%) (Auto) 9 % (0-9) Eosinophils (%) (Auto) 0 % (0-3) Basophils (%) (Auto) 0 % (0-3) Neutrophils # (Auto) 9.1 x10^3/uL (1.8-7.7) Lymphocytes # (Auto) 0.8 x10^3/uL (1.0-4.8) Monocytes # (Auto) 1.0 x10^3/uL (0.0-1.1) Eosinophils # (Auto) 0.0 x10^3/uL (0.0-0.7) Basophils # (Auto) 0.0 x10^3/uL (0.0-0.2) Images Images CT scan Findings: Asymmetric elevation of the left hemidiaphragm with overlying volume loss. Minimal basilar volume loss on the right. Hepatic steatosis. Low-attenuation focus within the more anterior aspect of the liver measuring 0.8 cm on image 24 series 2. This is incompletely characterized based on size but is statistically most likely benign. No CT manifestations of acute cholecystitis. Nondilated biliary tree. Unremarkable adrenal glands. The spleen is within normal limits for size. Pancreatic/peripancreatic fluid collection along the cephalad margin of the pancreatic tail measuring 7.3 x 6.3 x 6.8 cm. Internal density of approximately 15 Hounsfield units. The collection is walled off. Surrounding inflammation and a small amount of free fluid. Small focus of mineralization along the cephalad margin of the fluid collection. Relatively homogeneous attenuation along the rest of the pancreas and without significant peripancreatic inflammation elsewhere. Nondilated main pancreatic duct. Left larger than right hypoattenuating foci scattered throughout the kidneys. The larger of these measure cystic density. Many are too small to characterize. No nephrolithiasis or collecting system dilatation. Unremarkable bladder. Prostatomegaly measuring close to 6 cm in maximum dimension. No significant abnormality of the colon. Normal appendix. No pathologic dilatation of small bowel. Inflammatory changes associated with the pancreatic abnormalities along the stomach greater curvature at the fundus/proximal body. The fundus of the stomach is mildly deformed by the peripancreatic fluid collec tion. Mild calcific atherosclerosis. Patent central portal veins and SMV. Possible thrombosis of a portion of the splenic vein approaching the hilum, reference images 26 through 28 series 2. No evidence for a pseudoaneurysm. No significant lymph node enlargement. No pneumoperitoneum. There is scarring around the umbilicus. No complex body wall hernia. Scattered degenerative/chronic osseous findings to include findings often seen with diffuse idiopathic skeletal hyperostosis. Impression: 1. Active inflammation and a small amount of free fluid adjacent to a walled- off fluid collection associated with the tail of the pancreas measuring 7.3 x 6.3 x 6.8 cm. The rest of the pancreas is within normal limits. This could be a bland collection such as an evolving pseudocyst with residual inflammation from pancreatitis, mild active pancreatitis at the pancreatic tail superimposed upon a pseudocyst or walled-off necrosis. An infected pseudocyst is possible but there is no internal gas. Though felt unlikely, follow-up is recommended to exclude a cystic malignancy. 2. Possible thrombosis of a splenic vein branch adjacent to the fluid collec tion though the majority of the splenic vein is patent. No splenic infarct or pseudoaneurysm. 3. Hepatic steatosis. 4. Multiple renal cystic foci the larger of which appear simple. Several are too small to characterize. 5. Prostatomegaly. US abd: IMPRESSION: 1. The splenic vein is patent. 2. Fatty infiltration of the liver. Mild hepatomegaly. 3. Midline structures are obscured due to overlying bowel gas. 4. There is a fluid collection adjacent to the spleen better characterized on prior CT. Assessment/Plan Assessment/Plan Periumbilical abdominal pain. Based on the CT scan most likely the pain is related to the 7 cm cyst with associated inflammation in the pancreatic region. The cause however for this is unclear. He describes a similar pancreatic tail cyst drained in 2012. At that point he was asymptomatic. It could be he has some ductal abnormality which has resulted in a recurrence of pancreatic cyst or pseudocyst. There is no evidence for infection pseudocyst or bleeding at this point. However we do not know how long the cyst is been in place or whether it has grown slowly or rapidly recently. We also do not know the source for the cyst other than conjecture about his pancreatic duct abnormality since he has no risk factors for pancreatitis identified. Pancreatic cyst. This is a curious finding. We are unclear at this point on the source of this pancreatic cyst or the reason for his development recently but does have a history of a similar cyst over 8 years ago. That was evaluated and apparently had EUS drainage at [facility] but he is unsure. To treat this would be drainage. I do agree interventional radiology should review this case but it may not be the most optimal way to evaluate or treat this. I think endoscopic ultrasound and a facility which has expertise and complicated pancreatic disease should be considered. Plan: Continue pain management Okay to try a diet but he apparently does not feel like eating at this point Although it is reasonable for interventional radiology to review this case, I think it is more prudent to consider endoscopic ultrasound and referral to a center in [facility] which has more pancreatic disease expertise. I discussed several options for them but they wish to consider [facility] as their first choice. If we can get his pain controlled or if an initial drainage of the cyst can be done safely by interventional radiology, then this referral can be deferred to the outpatient elective setting. If however either we cannot control his symptoms or interventional radiology feels uncomfortable with pursuing drainage of the cyst, then we should transfer him as an inpatient. GAYE DUNCAN MD Feb 17, 2022 14:05
[2022-02-17 15:00] VITALS: BP 149/81
[2022-02-17 19:00] VITALS: BP 117/73
--- NOTE | 2022-02-17 21:38 | PDOC ---
[employer] PROGRESS NOTE Date of Service DOS: DATE: 02/17/22 TIME: 21:33 Chief Complaint Chief Complaint Assessment/Plan Intractable abdominal pain, constipation, sepsis, pancreatitis with fluid collection, partial splenic vein thrombosis -2 to 3-day history abdominal pain. Constipation. Failed outpatient treatment -Imaging on presentation here with fluid collections in pancreas. -We will provide as needed pain control. -Consult interventional radiology to see if any drainable fluid collection -If nothing will likely need GI consult -Home meds as indicated -DVT prophylaxis -We will do full liquid diet -Laxatives History of Present Illness History of Present Illness 02/17 Patient evaluated examined at bedside. Reported pain about the same well- controlled pain meds but will wear off in a fair bit of pain. Discussed with him at great length about pancreatic disorders to my knowledge. Informed him that almost certainly none of this pancreatic issues are related to alcohol as he only drinks 1-2 times every couple of months. Discussed the inflammation in his pancreatic tail along with fluid collection. Said this was most likely the cause of his pain but always have to consider other causes. GI consulted to today much appreciate the very thorough assessment. IR consult patient agreeable to drainage if deemed good option. Either way clear liquids today n.p.o. midnight just in case 02/16 patient evaluated examined at bedside. Complaining of ongoing abdominal pain. However much more controlled. IR consult pending. Informed patient may not be able to be seen by them until Friday as not an emergency and he understands this. Continue current otherwise. Discussed with bedside RN Vitals/I&O Vitals/I&O: Vital Signs Date Time Temp Pulse Resp B/P (MAP) Pulse Ox O2 Delivery O2 Flow Rate FiO2 02/17/22 19:00 102.9 98 20 117/73 (88) 92 Room Air 102.9 02/17/22 04:20 3.0 I & O 02/16/22 02/16/22 02/17/22 15:00 23:00 07:00 Intake Total 240 ml 240 ml Balance 240 ml 240 ml Physical Exam General: Alert, Oriented X3, Cooperative Heart: Regular rate, Normal S1, Normal S2 Lungs: Clear Abdomen: Normal bowel sounds, Soft, No masses, Other (Mild periumbilical tenderness, obesity) Extremities: No clubbing, No cyanosis Skin: No significant lesion Assessment and Plan Assessmemt and Plan Problems Medical Problems: (1) Failure of outpatient treatment Status: Acute (2) Intractable abdominal pain Status: Acute (3) Ketonuria Status: Acute (4) Leukocytosis Status: Acute Comment Review of Relevant I have reviewed the following items dalia (where applicable) has been applied. Justifications for Admission Other Justification AJAY FRAZIER MD Feb 17, 2022 21:38
[2022-02-17 23:00] VITALS: BP 149/77
[2022-02-18] MEDS: fentaNYL PF VIAL 100 MCG/2 ML VIAL IVP PRN ×7 (00:22→21:59)
[2022-02-18] MEDS: PIPERACILLIN/TAZOBACTAM 3.375 GM in IV NORMAL SALINE 50ML 50 ML IV SCH ×4 (00:23→19:08)
[2022-02-18 03:00] VITALS: BP 131/83
[2022-02-18] MEDS: HEPARIN for SUB-Q USE 5,000 UNIT/ML VIAL. SQ SCH ×3 (05:53→22:00)
[2022-02-18 07:00] VITALS: BP 134/79
[2022-02-18] MEDS: ASPIRIN CHEWABLE 81 MG TABLET. PO SCH (08:19)
[2022-02-18] MEDS: SENNOSIDES/DOCUSATE 8.6/50MG TABLET. PO SCH ×2 (08:19→21:52)
[2022-02-18] MEDS: FINASTERIDE 5 MG TABLET. PO SCH (08:19)
[2022-02-18] MEDS: POLYETHYLENE GLYCOL 3350 17 GM PACKET. PO SCH (08:19)
[2022-02-18] MEDS: PANTOPRAZOLE IV PUSH 40 MG VIAL. IVP SCH (08:19)
--- NOTE | 2022-02-18 08:20 | PDOC ---
Provider Note Date of Service: DATE: 02/18/22 TIME: 08:11 Provider Note IR NOTE Pancreatic cyst or pseudocyst in tail of pancreas. Endoscopic drainage, and possibly ERCP to evaluate communication with pancreastic duct and exclude stricture is treatment of choice if symptomatic. If there is concern for infection, can aspirate for culture. Percutaneous drainage is considered second line due to higher risk of morbidity, risk of fistula, progression to surgery, and protracted external drainage. Percutaneous drain may play a role of endoscopic treatment is contraindicated. Justifications for Admission Other Justification ABDIFATAH DONALDSON MD Feb 18, 2022 08:20
--- NOTE | 2022-02-18 10:23 | NUR ---
SW following. Discussed with RN, pt from home, uses a bipap at night at home, clear liquid diet. GI following - IR consulted for possible procedure, otherwise transfer likely to . SW awaiting further instruction. ARIANNA will continue to follow. Addendum: 02/18/22 at 1253 by ZOHAIB KELLER ARIANNA initiated transfer to . Requested clinicals faxed, awaiting acceptance decision. Addendum: 02/18/22 at 1637 by ZOHAIB KELLER [facility] at capacity. Dr. Castle requested SW try [facility]. ARIANNA initiated transfer for [facility]. Awaiting acceptance decision.
--- NOTE | 2022-02-18 10:51 | PDOC ---
Date of Service: DATE: 02/18/22 TIME: 10:42 Subjective: Subjective: Feels worse. Ongoing upper abdominal pain - middle to left - worse w/ deep breathing so trying not to take a deep breath. No n/v, taking a few clears but really no desire to eat. Passing flatus, no stool for a few days. No alcohol history. Might have high cholesterol? Objective: Objective: Tmax 102.9 Normal GB on US Reviewed IR note: Pancreatic cyst or pseudocyst in tail of pancreas. Endoscopic drainage, and possibly ERCP to evaluate communication with pancreastic duct and exclude stricture is treatment of choice if symptomatic. If there is concern for infection, can aspirate for culture. Percutaneous drainage is considered second line due to higher risk of morbidity, risk of fistula, progression to surgery, and protracted external drainage. Percutaneous drain may play a role of endoscopic treatment is contraindicated. Vital Signs: Vital Signs Date Time Temp Pulse Resp B/P (MAP) Pulse Ox O2 Delivery O2 Flow Rate FiO2 02/18/22 08:49 BiPAP/CPAP 2.0 02/18/22 07:00 99.8 98 18 134/79 (97) 97 99.8 Labs: CULTURE URINE Final NO GROWTH ON 02/17/22 at 0851 Imaging: From CT report 02/15 Active inflammation and a small amount of free fluid adjacent to a walled-off fluid collection associated with the tail of the pancreas measuring 7.3 x 6.3 x 6.8 cm. The rest of the pancreas is within normal limits. This could be a bland collection such as an evolving pseudocyst with residual inflammation from pancreatitis, mild active pancreatitis at the pancreatic tail superimposed upon a pseudocyst or walled-off necrosis. An infected pseudocyst is possible but there is no internal gas. Though felt unlikely, follow-up is recommended to exclude a cystic malignancy. PE: GEN: uncomfortable LUNGS: clear anteriorly - poor effort due to pain HEART: borderline tachycardia ABD: pretty quiet, soft, epigastric to LUQ discomfort NEURO/PSYCH: A & O 3 A/P: Abd pain - worse? Pancreatic cyst/pancreatic inflammation - h/o same w/ past drainage - IR does not recommend percutaneous drainage though could consider aspiration Normocytic anemia Fever - on IV atbx -- Recheck labs. Will reviewed w/ Dr. Marie - ?IR aspirate May need to consider transfer - historically, this is difficult to achieve - usually outpt follow-up (for EUS/drainage) recommended. Justicifation of Admission Dx: Justifications for Admission: Justification of Admission Dx: Yes RMEBERTO CARDENAS Feb 18, 2022 10:51
[2022-02-18 11:00] VITALS: BP 148/92
--- NOTE | 2022-02-18 12:13 | PDOC ---
[employer] PROGRESS NOTE Date of Service DOS: DATE: 02/18/22 TIME: 11:39 Chief Complaint Chief Complaint Assessment/Plan Intractable abdominal pain - Periumbilical abdominal pain, pancreatitis with a pancreatic cyst Constipation Sepsis Plan prn IV pain control. Consult interventional radiology to see if any drainable fluid collection GI consult Home meds as indicated DVT prophylaxis We will do full liquid diet Laxatives History of Present Illness History of Present Illness Mr Doyle is a 57 yo male who presents with several days of periumbilical abdominal pain radiating through to the back. Associated with nausea but no vomiting. 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 No other masses appreciated. Curiously, he describes a history of back in 2012 where he had a similar cyst that was asymptomatic but found incidentally on imaging and was drained with what sounds like endoscopic ultrasound. He had no further symptoms or problems until now. He does not have any risk factors for pancreatitis. He does not have a history of gallstones or biliary disease and does not drink alcohol. He is not taking any medicines which are associated with pancreatitis. Normally he denies any significant chronic GI complaints such as pain, nausea or indigestion. 02/16 patient evaluated examined at bedside. Complaining of ongoing abdominal pain. However much more controlled. IR consult pending. Informed patient may not be able to be seen by them until Friday as not an emergency and he und erstands this. Continue current otherwise. 02/17: Patient evaluated examined at bedside. Reported pain about the same well-controlled pain meds but will wear off in a fair bit of pain. GI consulted to today much appreciate the very thorough assessment. IR consult patient agreeable to drainage if deemed good option. 02/18: Febrile 102.1 F overnight. Still with significant pain 9 out of 10 with deep inspiration in his left upper quadrant and into his back and left flank. Tolerating Zosyn IV. CT abdomen pelvis upon my interpretation fluid collection in the tail of the pancreas 7.3 x 6.3 x 6.8 cm pancreatic inflammation. Multipl e renal cysts, prostatomegaly. Splenic vein branch appeared ccluded on CT but ultrasound showed Doppler flow. Discussed with GI who discussed with interventional radiology EUS would be appropriate we do not have this ability at our facility and patient wishes for referral to [facility] or [facility] Vitals/I&O Vitals/I&O: Vital Signs Date Time Temp Pulse Resp B/P (MAP) Pulse Ox O2 Delivery O2 Flow Rate FiO2 02/18/22 11:35 Nasal Cannula 02/18/22 08:49 2.0 02/18/22 07:00 99.8 98 18 134/79 (97) 97 99.8 I & O 02/17/22 02/17/22 02/18/22 15:00 23:00 07:00 Intake Total 240 ml 120 ml Balance 240 ml 120 ml Physical Exam General: Alert, Oriented X3, Cooperative Heart: Regular rate, Normal S1, Normal S2 Lungs: Clear Abdomen: Normal bowel sounds, Soft, No masses, Other (Mild periumbilical tenderness, obesity) Extremities: No clubbing, No cyanosis Skin: No significant lesion Assessment and Plan Assessmemt and Plan Problems Medical Problems: (1) Failure of outpatient treatment Status: Acute (2) Intractable abdominal pain Status: Acute (3) Ketonuria Status: Acute (4) Leukocytosis Status: Acute Comment Review of Relevant I have reviewed the following items dalia (where applicable) has been applied. Justifications for Admission Other Justification AJAY HOFFMAN MD Feb 18, 2022 12:13
[2022-02-18 12:33] LABS: HEMATOCRIT 36.8 % (39.0-53.0); HEMOGLOBIN 11.9 g/dL (13.0-17.5); RED BLOOD COUNT 4.51 x10^6/uL (4.30-5.70); WHITE BLOOD COUNT 13.7 x10^3/uL (4.0-11.0)
[2022-02-18 12:34] LABS: ALBUMIN 2.6 g/dL (3.4-5.0); ALBUMIN/GLOBULIN RATIO 0.5 (1.0-1.7); CALCIUM 8.9 mg/dL (8.5-10.1); CREATININE 1.1 mg/dL (0.7-1.3); GFR 83.2; POTASSIUM 3.7 mmol/L (3.5-5.1); TOTAL BILIRUBIN 0.6 mg/dL (0.2-1.0); TOTAL PROTEIN 8.1 g/dL (6.4-8.2)
[2022-02-18] MEDS: AA 4.25 %/CALCIUM/LYTES/D5W 1,000 ML IV SCH (13:16)
[2022-02-18] MEDS: oxyCODONE/APAP 5/325 1 TAB TABLET PO PRN ×2 (13:16→19:58)
[2022-02-18 15:00] VITALS: BP 144/94
[2022-02-18 23:00] VITALS: BP 171/98
[2022-02-19] MEDS: PIPERACILLIN/TAZOBACTAM 3.375 GM in IV NORMAL SALINE 50ML 50 ML IV SCH ×3 (00:09→13:58)
[2022-02-19] MEDS: fentaNYL PF VIAL 100 MCG/2 ML VIAL IVP PRN ×4 (00:11→06:26)
[2022-02-19] MEDS: AA 4.25 %/CALCIUM/LYTES/D5W 1,000 ML IV SCH ×2 (01:45→13:58)
[2022-02-19 03:00] VITALS: BP 160/88
[2022-02-19] MEDS: HEPARIN for SUB-Q USE 5,000 UNIT/ML VIAL. SQ SCH ×3 (06:00→22:00)
[2022-02-19 07:00] VITALS: BP 154/97
[2022-02-19 08:43] LABS: BASO % 0 % (0-3); EOS % 0 % (0-3); HEMATOCRIT 36.4 % (39.0-53.0); HEMOGLOBIN 11.7 g/dL (13.0-17.5); LYMPH # 1.3 x10^3/uL (1.0-4.8); LYMPH % 9 % (24-48); MEAN CORPUSCULAR HEMOGLOBIN 27 pg (25-35); MEAN CORPUSCULAR HGB CONC 32 g/dL (31-37); MEAN CORPUSCULAR VOLUME 83 fL (79-100); MONO # 1.4 x10^3/uL (0.0-1.1); MONO % 9 % (0-9); NEUT # 12.9 x10^3/uL (1.8-7.7); NEUT % 82 % (31-73); PLATELET COUNT 286 x10^3/uL (140-400); RED CELL DISTRIBUTION WIDTH 15.2 % (11.5-14.5); WHITE BLOOD COUNT 15.8 x10^3/uL (4.0-11.0)
[2022-02-19 09:06] LABS: ALBUMIN 2.8 g/dL (3.4-5.0); ALBUMIN/GLOBULIN RATIO 0.5 (1.0-1.7); CALCIUM 9.2 mg/dL (8.5-10.1); CREATININE 1.2 mg/dL (0.7-1.3); GFR 75.2; POTASSIUM 3.3 mmol/L (3.5-5.1); TOTAL BILIRUBIN 0.6 mg/dL (0.2-1.0); TOTAL PROTEIN 8.5 g/dL (6.4-8.2)
[2022-02-19] MEDS: SENNOSIDES/DOCUSATE 8.6/50MG TABLET. PO SCH ×2 (09:39→21:43)
[2022-02-19] MEDS: FINASTERIDE 5 MG TABLET. PO SCH (09:39)
[2022-02-19] MEDS: ASPIRIN CHEWABLE 81 MG TABLET. PO SCH (09:39)
[2022-02-19] MEDS: POLYETHYLENE GLYCOL 3350 17 GM PACKET. PO SCH (09:39)
[2022-02-19] MEDS: PANTOPRAZOLE IV PUSH 40 MG VIAL. IVP SCH (09:40)
[2022-02-19 11:00] VITALS: BP 147/97
--- NOTE | 2022-02-19 11:31 | PDOC ---
[employer] PROGRESS NOTE Date of Service DOS: DATE: 02/19/22 TIME: 11:18 Chief Complaint Chief Complaint Assessment/Plan Intractable abdominal pain - Periumbilical abdominal pain, pancreatitis with a pancreatic cyst Constipation Sepsis Plan prn IV pain control. Consult interventional radiology to see if any drainable fluid collection GI consult Home meds as indicated DVT prophylaxis We will do full liquid diet Laxatives History of Present Illness History of Present Illness Mr Doyle is a 57 yo male who presents with several days of periumbilical abdominal pain radiating through to the back. Associated with nausea but no vomiting. 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 No other masses appreciated. Curiously, he describes a history of back in 2012 where he had a similar cyst that was asymptomatic but found incidentally on imaging and was drained with what sounds like endoscopic ultrasound. He had no further symptoms or problems until now. He does not have any risk factors for pancreatitis. He does not have a history of gallstones or biliary disease and does not drink alcohol. He is not taking any medicines which are associated with pancreatitis. Normally he denies any significant chronic GI complaints such as pain, nausea or indigestion. 02/16 patient evaluated examined at bedside. Complaining of ongoing abdominal pain. However much more controlled. IR consult pending. Informed patient may not be able to be seen by them until Friday as not an emergency and he und erstands this. Continue current otherwise. 02/17: Patient evaluated examined at bedside. Reported pain about the same well-controlled pain meds but will wear off in a fair bit of pain. GI consulted to today much appreciate the very thorough assessment. IR consult patient agreeable to drainage if deemed good option. 02/18: Febrile 102.1 F overnight. Still with significant pain 9 out of 10 with deep inspiration in his left upper quadrant and into his back and left flank. Tolerating Zosyn IV. CT abdomen pelvis upon my interpretation fluid collection in the tail of the pancreas 7.3 x 6.3 x 6.8 cm pancreatic inflammation. Multiple renal cysts, prostatomegaly. Splenic vein branch appeared ccluded on CT but ultrasound showed Doppler flow. Discussed with GI who discussed with interventional radiology EUS would be appropriate we do not have this ability at our facility and patient wishes for referral to [facility] or [facility] 02/19: Febrile to 100.7 F overnight. Feels like Percocet is covering his pain a little bit but fentanyl is wearing off still with splinting on deep inspiration. Will change IV medications to Dilaudid every 3 hours as needed and consult infectious diseases likely will need to be on cefepime or Carbapenem. Vitals/I&O Vitals/I&O: Vital Signs Date Time Temp Pulse Resp B/P (MAP) Pulse Ox O2 Delivery O2 Flow Rate FiO2 02/19/22 07:00 98.7 98 24 154/97 (116) 97 2.0 98.7 02/19/22 06:56 Nasal Cannula I & O 0 02/18/22 02/18/22 02/19/22 14:59 22:59 06:59 Intake Total 2280 ml 400 ml Balance 2280 ml 400 ml Physical Exam General: Alert, Oriented X3, Cooperative Heart: Regular rate, Normal S1, Normal S2 Lungs: Clear Abdomen: Normal bowel sounds, Soft, No masses, Other (Mild periumbilical tenderness, obesity) Extremities: No clubbing, No cyanosis Skin: No significant lesion Labs Labs: Laboratory Tests Test 02/18/22 11:56 02/18/22 13:20 02/19/22 08:20 White Blood Count 13.7 x10^3/uL (4.0-11.0) 15.8 x10^3/uL (4.0-11.0) Red Blood Count 4.51 x10^6/uL (4.30-5.70) 4.40 x10^6/uL (4.30-5.70) Hemoglobin 11.9 g/dL (13.0-17.5) 11.7 g/dL (13.0-17.5) Hematocrit 36.8 % (39.0-53.0) 36.4 % (39.0-53.0) Mean Corpuscular Volume 82 fL (79-100) 83 fL (79-100) Mean Corpuscular Hemoglobin 27 pg (25-35) 27 pg (25-35) Mean Corpuscular Hemoglobin Concent 33 g/dL (31-37) 32 g/dL (31-37) Red Cell Distribution Width 15.0 % (11.5-14.5) 15.2 % (11.5-14.5) Platelet Count 279 x10^3/uL (140-400) 286 x10^3/uL (140-400) Sodium Level 138 mmol/L (136-145) 134 mmol/L (136-145) Potassium Level 3.7 mmol/L (3.5-5.1) 3.3 mmol/L (3.5-5.1) Chloride Level 99 mmol/L (98-107) 93 mmol/L (98-107) Carbon Dioxide Level 33 mmol/L (21-32) 32 mmol/L (21-32) Anion Gap 6 (6-14) 9 (6-14) Blood Urea Nitrogen 7 mg/dL (8-26) 12 mg/dL (8-26) Creatinine 1.1 mg/dL (0.7-1.3) 1.2 mg/dL (0.7-1.3) Estimated GFR (Cockcroft-Gault) 83.2 75.2 BUN/Creatinine Ratio 6 (6-20) 10 (6-20) Glucose Level 117 mg/dL (70-99) 130 mg/dL (70-99) Calcium Level 8.9 mg/dL (8.5-10.1) 9.2 mg/dL (8.5-10.1) Total Bilirubin 0.6 mg/dL (0.2-1.0) 0.6 mg/dL (0.2-1.0) Aspartate Amino Transf (AST/SGOT) 35 U/L (15-37) 36 U/L (15-37) Alanine Aminotransferase (ALT/SGPT) 44 U/L (16-63) 52 U/L (16-63) Alkaline Phosphatase 77 U/L (46-116) 78 U/L (46-116) Total Protein 8.1 g/dL (6.4-8.2) 8.5 g/dL (6.4-8.2) Albumin 2.6 g/dL (3.4-5.0) 2.8 g/dL (3.4-5.0) Albumin/Globulin Ratio 0.5 (1.0-1.7) 0.5 (1.0-1.7) SARS-CoV-2 Antigen (Rapid) Negative (NEGATIVE) Neutrophils (%) (Auto) 82 % (31-73) Lymphocytes (%) (Auto) 9 % (24-48) Monocytes (%) (Auto) 9 % (0-9) Eosinophils (%) (Auto) 0 % (0-3) Basophils (%) (Auto) 0 % (0-3) Neutrophils # (Auto) 12.9 x10^3/uL (1.8-7.7) Lymphocytes # (Auto) 1.3 x10^3/uL (1.0-4.8) Monocytes # (Auto) 1.4 x10^3/uL (0.0-1.1) Eosinophils # (Auto) 0.0 x10^3/uL (0.0-0.7) Basophils # (Auto) 0.0 x10^3/uL (0.0-0.2) Assessment and Plan Assessmemt and Plan Problems Medical Problems: (1) Failure of outpatient treatment Status: Acute (2) Intractable abdominal pain Status: Acute (3) Ketonuria Status: Acute (4) Leukocytosis Status: Acute Comment Review of Relevant I have reviewed the following items dalia (where applicable) has been applied. Medications: Current Medications Medications (Trade) Dose Ordered Sig/Chirag Route PRN Reason Start Time Stop Time Status Last Admin Dose Admin Amino Acids/ Electrolytes/ Dextrose 1,000 ml @ 80 mls/hr [id number] IV 02/18/22 12:15 02/19/22 01:45 Justifications for Admission Other Justification AJAY HOFFMAN MD Feb 19, 2022 11:31
[2022-02-19] MEDS ORDERED: POTASSIUM BICARB 20 MEQ EFFERVESCENT TABLET. PO ONE (12:00)
[2022-02-19 12:38] LABS: % BANDS 6 % (0-9); % LYMPHS 15 % (24-48); % MONOS 5 % (0-10); % MYELOS 1 % (0-0); % SEGS 73 % (35-66)
[2022-02-19 12:39] LABS: PLT ESTIMATE ADEQUATE (ADEQUATE)
--- NOTE | 2022-02-19 13:10 | PDOC ---
Date of Service: DATE: 02/19/22 TIME: 13:07 Subjective: Subjective: Miserable w/ upper abdominal pain, makes breathing difficult. Objective: Objective: Reviewed chart, d/w hospitalist and SW - accepted by [facility] yesterday but no beds, no response yet from [facility]. Plans for ID opinion. Tmax 100.7. Vital Signs: Vital Signs Date Time Temp Pulse Resp B/P (MAP) Pulse Ox O2 Delivery O2 Flow Rate FiO2 02/19/22 11:00 99.0 94 24 147/97 (114) 96 2.0 99.0 02/19/22 08:00 Nasal Cannula Labs: Laboratory Tests Test 02/18/22 13:20 02/19/22 08:20 SARS-CoV-2 Antigen (Rapid) Negative White Blood Count 15.8 x10^3/uL Red Blood Count 4.40 x10^6/uL Hemoglobin 11.7 g/dL Hematocrit 36.4 % Mean Corpuscular Volume 83 fL Mean Corpuscular Hemoglobin 27 pg Mean Corpuscular Hemoglobin Concent 32 g/dL Red Cell Distribution Width 15.2 % Platelet Count 286 x10^3/uL Neutrophils (%) (Auto) 82 % Lymphocytes (%) (Auto) 9 % Monocytes (%) (Auto) 9 % Eosinophils (%) (Auto) 0 % Basophils (%) (Auto) 0 % Neutrophils # (Auto) 12.9 x10^3/uL Lymphocytes # (Auto) 1.3 x10^3/uL Monocytes # (Auto) 1.4 x10^3/uL Eosinophils # (Auto) 0.0 x10^3/uL Basophils # (Auto) 0.0 x10^3/uL Segmented Neutrophils % 73 % Band Neutrophils % 6 % Lymphocytes % 15 % Monocytes % 5 % Myelocytes % 1 % Platelet Estimate Adequate Sodium Level 134 mmol/L Potassium Level 3.3 mmol/L Chloride Level 93 mmol/L Carbon Dioxide Level 32 mmol/L Anion Gap 9 Blood Urea Nitrogen 12 mg/dL Creatinine 1.2 mg/dL Estimated GFR (Cockcroft-Gault) 75.2 BUN/Creatinine Ratio 10 Glucose Level 130 mg/dL Calcium Level 9.2 mg/dL Total Bilirubin 0.6 mg/dL Aspartate Amino Transf (AST/SGOT) 36 U/L Alanine Aminotransferase (ALT/SGPT) 52 U/L Alkaline Phosphatase 78 U/L Total Protein 8.5 g/dL Albumin 2.8 g/dL Albumin/Globulin Ratio 0.5 PE: GEN: NAD HEENT: Atraumatic, PERRLA LUNGS: CTAB HEART: RRR, no murmurs ABD: NABS, S/ND/NT, no masses EXTREMITY: No edema SKIN: No rashes, no jaundice NEURO/PSYCH: A & O 3 A/P: Upper abdominal pain Pancreatic cyst/pancreatic inflammation - h/o same w/ past drainage (tells me today done at [place]) - attempting transfer to tertiary facility Leukocytosis -- Dr. Mendez to see today, will review w/ him. Justicifation of Admission Dx: Justifications for Admission: Justification of Admission Dx: Yes REMBERTO CARDENAS Feb 19, 2022 13:10
[2022-02-19] MEDS: HYDROmorphone 2 MG/ML INJ. IVP PRN ×2 (13:59→17:31)
[2022-02-19 15:00] VITALS: BP 127/74
[2022-02-19] MEDS: MEROPENEM 500 MG in IV NORMAL SALINE 50ML 50 ML IV SCH (17:31)
[2022-02-19 19:00] VITALS: BP 126/90
--- NOTE | 2022-02-19 21:09 | CONS ---
DATE OF CONSULTATION: 02/19/2022 REFERRING PHYSICIAN: Dr. Castle. REASON FOR CONSULTATION: Persistent fever, pancreatitis, on Zosyn. HISTORY OF PRESENT ILLNESS: A 57-year-old male presented to the ER on 02/15/2022 with complaints of abdominal pain, nausea, vomiting, poor p.o. intake, and generalized weakness. The patient had not been able to have any bowel movement or pass gas 3 days prior to admission. He went to [facility] at [facility]. He had labs and imaging done. He was told he may have pancreatitis and possible bowel infection, and was sent home, but he continued to feel worse. He was seen by his primary care provider and due to significant pain, he was advised to come to [facility] ED. The patient was febrile at 100.2. UA was positive for 20-40 wbc's. White count was elevated at 14.9. The patient had ketonuria. He denies any similar episodes in the past. He was started on Zosyn. GI team was consulted. The patient continued to have upper abdominal pain, also had shortness of breath. Has clear sputum production. Remains on O2. P.o. intake remains poor. Plans were to transfer to yesterday, but no beds were available. They are awaiting response from [facility]. T-max was 100.7. White count remains elevated at 15.8. CT abdomen and pelvis on admission as below. Ultrasound as below. PAST MEDICAL HISTORY: Pancreatic cyst in the past. PAST SURGICAL HISTORY: Hernia repair, TURP. ALLERGIES: No known drug allergies. SOCIAL HISTORY: Former smoker, occasional alcohol. Denies drug use. Lives with his . Works as a church secretary. FAMILY HISTORY: As per HPI. CURRENT MEDICATIONS: Zosyn. Other medications reviewed in medication list. REVIEW OF SYSTEMS: Negative except for above in HPI. PHYSICAL EXAMINATION: VITAL SIGNS: Temperature 98.9, pulse 87, respiratory rate 24, blood pressure 127/74, oxygen saturation 95% on 2 liters O2 by nasal cannula, T-max is 100.7. GENERAL: Well-developed, well-nourished, alert, oriented x3 male, lying in bed comfortably, in no acute distress. HEENT: Normocephalic, atraumatic. Anicteric. No thrush. Oral mucosa moist. NECK: Supple, no JVD. LUNGS: Clear bilaterally. No wheezing. HEART: S1, S2. No murmurs. ABDOMEN: Mildly distended, mild diffuse tenderness present, bowel sounds present. No rebound, no guarding. EXTREMITIES: No edema, no cyanosis. DERMATOLOGIC: Warm, dry, no generalized rash. NEUROLOGIC: Alert, oriented x3, grossly nonfocal. PSYCHIATRIC: Calm and cooperative. MICRO: Urine culture negative. Blood culture none. LABORATORY DATA: UA showed 20-40 wbc's. IMAGING: CT abdomen and pelvis reveals active inflammation, small amount of free fluid adjacent to the walled-off collection associated with the tail of the pancreas measuring 7.3 x 6.7 x 6.8 cm. The rest of the pancreas is within normal limits. This could be bland collection such as evolving pseudocyst with residual inflammation from pancreatitis, mild active pancreatitis at the pancreatic tail superimposed upon a pseudocyst or walled-off necrosis. An infected pseudocyst is possible, but there is no internal gas. Though felt unlikely, followup is recommended to exclude a cystic malignancy. Possible thrombosis of the splenic vein branch adjacent to the fluid collection, though the majority of the splenic vein is patent. No splenic infarct or pseudoaneurysm. Hepatic steatosis. There are multiple renal cystic foci, the larger of which appears simple. Several are too small to characterize. Prostatomegaly. Ultrasound of the abdomen shows splenic vein is patent and fatty infiltration of the liver, mild hepatomegaly, midline structures are obscured due to overlying bowel gas. There is fluid collection adjacent to the spleen, better characterized on prior CT. IMPRESSION: 1. Fever. 2. Leukocytosis. 3. Intractable abdominal pain, constipation, pancreatitis with fluid collection, partial splenic vein thrombosis. 4. Shortness of breath, likely reactive from pancreatitis. 5. Constipation. RECOMMENDATIONS: 1. Change Zosyn to meropenem. 2. IR was consulted, but not a candidate for fluid drainage. GI following 3. The patient is awaiting transfer to or [facility] depending on bed availability. 4. If the patient has a temperature of greater than 101, please obtain blood cultures. 5. Monitor labs and cultures. 6. Continue supportive care. Thank you for allowing me to participate in this patient's care. If you have any questions, do not hesitate to contact me. VALENTINE/HAO/FREEMAN DR: VALENTINE/charla TID: [id number] MTDD
[2022-02-19 23:14] VITALS: BP 131/91
[2022-02-20] VITALS (18 sets, daily range): BP systolic 110–175; BP diastolic 82–101
[2022-02-20] MEDS: MEROPENEM 500 MG in IV NORMAL SALINE 50ML 50 ML IV SCH ×4 (00:14→17:43)
[2022-02-20] MEDS: HYDROmorphone 2 MG/ML INJ. IVP PRN ×2 (00:22→21:03)
[2022-02-20] MEDS: AA 4.25 %/CALCIUM/LYTES/D5W 1,000 ML IV SCH ×2 (02:57→16:45)
[2022-02-20] MEDS: HEPARIN for SUB-Q USE 5,000 UNIT/ML VIAL. SQ SCH ×3 (06:00→22:00)
[2022-02-20] MEDS: PANTOPRAZOLE IV PUSH 40 MG VIAL. IVP SCH (07:30)
[2022-02-20 08:02] LABS: BASO % 0 % (0-3); EOS # 0.1 x10^3/uL (0.0-0.7); EOS % 1 % (0-3); HEMATOCRIT 34.4 % (39.0-53.0); LYMPH # 0.9 x10^3/uL (1.0-4.8); LYMPH % 6 % (24-48); MEAN CORPUSCULAR HEMOGLOBIN 26 pg (25-35); MEAN CORPUSCULAR HGB CONC 32 g/dL (31-37); MEAN CORPUSCULAR VOLUME 82 fL (79-100); MONO # 1.2 x10^3/uL (0.0-1.1); MONO % 8 % (0-9); NEUT # 12.5 x10^3/uL (1.8-7.7); NEUT % 85 % (31-73); PLATELET COUNT 297 x10^3/uL (140-400); RED BLOOD COUNT 4.19 x10^6/uL (4.30-5.70); RED CELL DISTRIBUTION WIDTH 15.3 % (11.5-14.5); WHITE BLOOD COUNT 14.7 x10^3/uL (4.0-11.0)
[2022-02-20] MEDS: POLYETHYLENE GLYCOL 3350 17 GM PACKET. PO SCH (08:03)
[2022-02-20] MEDS: ASPIRIN CHEWABLE 81 MG TABLET. PO SCH (08:05)
[2022-02-20] MEDS: FINASTERIDE 5 MG TABLET. PO SCH (08:06)
[2022-02-20] MEDS: SENNOSIDES/DOCUSATE 8.6/50MG TABLET. PO SCH ×2 (08:06→21:00)
[2022-02-20 08:27] LABS: ALBUMIN 2.7 g/dL (3.4-5.0); ALBUMIN/GLOBULIN RATIO 0.5 (1.0-1.7); CALCIUM 9.5 mg/dL (8.5-10.1); CREATININE 0.8 mg/dL (0.7-1.3); GFR 120.1; POTASSIUM 3.6 mmol/L (3.5-5.1); TOTAL BILIRUBIN 0.4 mg/dL (0.2-1.0); TOTAL PROTEIN 8.2 g/dL (6.4-8.2)
--- NOTE | 2022-02-20 10:09 | PDOC ---
Date of Service: DATE: 02/20/22 TIME: 10:05 Subjective: Subjective: Feels better today - he thinks in part due to different pain medication (Dilaudid?) Breathing better. Still feels bloated, passing flatus. Objective: Objective: Reviewed meds - declined pantoprazole. On PPN. Vital Signs: Vital Signs Date Time Temp Pulse Resp B/P (MAP) Pulse Ox O2 Delivery O2 Flow Rate FiO2 02/20/22 08:00 Nasal Cannula 2.0 02/20/22 07:00 98.7 100 18 152/96 (114) 97 98.7 Labs: Laboratory Tests Test 02/20/22 06:30 White Blood Count 14.7 x10^3/uL Red Blood Count 4.19 x10^6/uL Hemoglobin 11.0 g/dL Hematocrit 34.4 % Mean Corpuscular Volume 82 fL Mean Corpuscular Hemoglobin 26 pg Mean Corpuscular Hemoglobin Concent 32 g/dL Red Cell Distribution Width 15.3 % Platelet Count 297 x10^3/uL Neutrophils (%) (Auto) 85 % Lymphocytes (%) (Auto) 6 % Monocytes (%) (Auto) 8 % Eosinophils (%) (Auto) 1 % Basophils (%) (Auto) 0 % Neutrophils # (Auto) 12.5 x10^3/uL Lymphocytes # (Auto) 0.9 x10^3/uL Monocytes # (Auto) 1.2 x10^3/uL Eosinophils # (Auto) 0.1 x10^3/uL Basophils # (Auto) 0.0 x10^3/uL Sodium Level 134 mmol/L Potassium Level 3.6 mmol/L Chloride Level 94 mmol/L Carbon Dioxide Level 33 mmol/L Anion Gap 7 Blood Urea Nitrogen 12 mg/dL Creatinine 0.8 mg/dL Estimated GFR (Cockcroft-Gault) 120.1 BUN/Creatinine Ratio 15 Glucose Level 124 mg/dL Calcium Level 9.5 mg/dL Total Bilirubin 0.4 mg/dL Aspartate Amino Transf (AST/SGOT) 29 U/L Alanine Aminotransferase (ALT/SGPT) 42 U/L Alkaline Phosphatase 77 U/L Total Protein 8.2 g/dL Albumin 2.7 g/dL Albumin/Globulin Ratio 0.5 PE: GEN: NAD LUNGS: clear, NC HEART: RRR ABD: soft, does seem less tender, NABS NEURO/PSYCH: A & O 3 - more calm today, always pleasant and cooperated A/P: Upper abdominal pain - better Pancreatic cyst/pancreatic inflammation Leukocytosis - ID following, atbx changed -- Requested IR cyst aspirate, await this. Will review if any records received from [place]. ?transfer plans Justicifation of Admission Dx: Justifications for Admission: Justification of Admission Dx: Yes REMBERTO CARDENAS Feb 20, 2022 10:09
[2022-02-20 10:30] LABS: PROTHROMBIN TIME PATIENT 14.2 SEC (11.7-14.0)
--- NOTE | 2022-02-20 13:07 | PDOC ---
[employer] PROGRESS NOTE Date of Service DOS: DATE: 02/20/22 TIME: 12:55 Chief Complaint Chief Complaint Assessment/Plan Intractable abdominal pain - Periumbilical abdominal pain, pancreatitis with a pancreatic cyst Constipation Sepsis Plan prn IV pain control. Consult interventional radiology to see if any drainable fluid collection GI consult Home meds as indicated DVT prophylaxis Laxatives History of Present Illness History of Present Illness Mr Doyle is a 57 yo male who presents with several days of periumbilical abd ominal pain radiating through to the back. Associated with nausea but no vomiting. 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 No other masses appreciated. Curiously, he describes a history of back in 2012 where he had a similar cyst that was asymptomatic but found incidentally on imaging and was drained with what sounds like endoscopic ultrasound. He had no further symptoms or problems until now. He does not have any risk factors for pancreatitis. He does not have a history of gallstones or biliary disease and does not drink alcohol. He is not taking any medicines which are associated with pancreatitis. Normally he denies any significant chronic GI complaints such as pain, nausea or indigestion. 02/16 patient evaluated examined at bedside. Complaining of ongoing abdominal pain. However much more controlled. IR consult pending. Informed patient may not be able to be seen by them until Friday as not an emergency and he understands this. Continue current otherwise. 02/17: Patient evaluated examined at bedside. Reported pain about the same well- controlled pain meds but will wear off in a fair bit of pain. GI consulted to today much appreciate the very thorough assessment. IR consult patient agreeable to drainage if deemed good option. 02/18: Febrile 102.1 F overnight. Still with significant pain 9 out of 10 with deep inspiration in his left upper quadrant and into his back and left flank. Tolerating Zosyn IV. CT abdomen pelvis upon my interpretation fluid collection in the tail of the pancreas 7.3 x 6.3 x 6.8 cm pancreatic inflammation. Multiple renal cysts, prostatomegaly. Splenic vein branch appeared ccluded on CT but ultrasound showed Doppler flow. Discussed with GI who discussed with interventional radiology EUS would be appropriate we do not have this ability at our facility and patient wishes for referral to [facility] or [facility] 02/19: Febrile to 100.7 F overnight. Feels like Percocet is covering his pain a little bit but fentanyl is wearing off still with splinting on deep inspiration. Will change IV medications to Dilaudid every 3 hours as needed and consult infectious diseases, changed to Carbapenem. 02/20: T-max 100 F last 24 hours. N.p.o. for consideration of cyst drainage w [facility] interventional radiology today WBC still elevated at 14.7. Vitals/I&O Vitals/I&O: Vital Signs Date Time Temp Pulse Resp B/P (MAP) Pulse Ox O2 Delivery O2 Flow Rate FiO2 02/20/22 11:00 100.0 92 18 163/93 (116) 95 Room Air 100.0 02/20/22 08:00 2.0 I & O 02/19/22 02/19/22 02/20/22 15:00 23:00 07:00 Intake Total 120 ml Balance 120 ml Physical Exam General: Alert, Oriented X3, Cooperative Heart: Regular rate, Normal S1, Normal S2 Lungs: Clear Abdomen: Normal bowel sounds, Soft, No masses, Other (Mild periumbilical tenderness, obesity) Extremities: No clubbing, No cyanosis Skin: No significant lesion Labs Labs: Laboratory Tests Test 02/20/22 06:30 02/20/22 09:35 White Blood Count 14.7 x10^3/uL (4.0-11.0) Red Blood Count 4.19 x10^6/uL (4.30-5.70) Hemoglobin 11.0 g/dL (13.0-17.5) Hematocrit 34.4 % (39.0-53.0) Mean Corpuscular Volume 82 fL (79-100) Mean Corpuscular Hemoglobin 26 pg (25-35) Mean Corpuscular Hemoglobin Concent 32 g/dL (31-37) Red Cell Distribution Width 15.3 % (11.5-14.5) Platelet Count 297 x10^3/uL (140-400) Neutrophils (%) (Auto) 85 % (31-73) Lymphocytes (%) (Auto) 6 % (24-48) Monocytes (%) (Auto) 8 % (0-9) Eosinophils (%) (Auto) 1 % (0-3) Basophils (%) (Auto) 0 % (0-3) Neutrophils # (Auto) 12.5 x10^3/uL (1.8-7.7) Lymphocytes # (Auto) 0.9 x10^3/uL (1.0-4.8) Monocytes # (Auto) 1.2 x10^3/uL (0.0-1.1) Eosinophils # (Auto) 0.1 x10^3/uL (0.0-0.7) Basophils # (Auto) 0.0 x10^3/uL (0.0-0.2) Sodium Level 134 mmol/L (136-145) Potassium Level 3.6 mmol/L (3.5-5.1) Chloride Level 94 mmol/L (98-107) Carbon Dioxide Level 33 mmol/L (21-32) Anion Gap 7 (6-14) Blood Urea Nitrogen 12 mg/dL (8-26) Creatinine 0.8 mg/dL (0.7-1.3) Estimated GFR (Cockcroft-Gault) 120.1 BUN/Creatinine Ratio 15 (6-20) Glucose Level 124 mg/dL (70-99) Calcium Level 9.5 mg/dL (8.5-10.1) Total Bilirubin 0.4 mg/dL (0.2-1.0) Aspartate Amino Transf (AST/SGOT) 29 U/L (15-37) Alanine Aminotransferase (ALT/SGPT) 42 U/L (16-63) Alkaline Phosphatase 77 U/L (46-116) Total Protein 8.2 g/dL (6.4-8.2) Albumin 2.7 g/dL (3.4-5.0) Albumin/Globulin Ratio 0.5 (1.0-1.7) Prothrombin Time 14.2 SEC (11.7-14.0) Prothromb Time International Ratio 1.1 (0.8-1.1) Assessment and Plan Assessmemt and Plan Problems Medical Problems: (1) Failure of outpatient treatment Status: Acute (2) Intractable abdominal pain Status: Acute (3) Ketonuria Status: Acute (4) Leukocytosis Status: Acute Comment Review of Relevant I have reviewed the following items dalia (where applicable) has been applied. Medications: Current Medications Medications (Trade) Dose Ordered Sig/Chirag Route PRN Reason Start Time Stop Time Status Last Admin Dose Admin Meropenem 500 mg/ Sodium Chloride 50 ml @ 100 mls/hr Q6HRS IV 02/19/22 18:00 02/20/22 12:17 Justifications for Admission Other Justification AJAY HOFFMAN MD Feb 20, 2022 13:07
--- NOTE | 2022-02-20 13:11 | NUR ---
Heparin held for IR procedure
[2022-02-20] MEDS ORDERED: LIDOCAINE WITH 8.4% SOD BICARB 3 ML DISP.SYRIN. ONE (13:38)
[2022-02-20] MEDS ORDERED: fentaNYL PF VIAL 100 MCG/2 ML VIAL ONE (13:51)
[2022-02-20] MEDS ORDERED: MIDAZOLAM HCL/PF 2 MG/2 ML VIAL. ONE (13:51)
--- NOTE | 2022-02-20 13:51 | PDOC ---
Infectious Disease Note Subjective: Subjective Patient feels much better today Abdominal pain is improving Still has cough with clear sputum with some yellowish stain Appetite remains poor Passes flatus Underwent IR drainage earlier today Vital Signs: Vital Signs Vital Signs Date Time Temp Pulse Resp B/P (MAP) Pulse Ox O2 Delivery O2 Flow Rate FiO2 02/20/22 11:00 100.0 92 18 163/93 (116) 95 Room Air 100.0 02/20/22 08:00 2.0 Physical Exam: PHYSICAL EXAM GENERAL: Well-developed, well-nourished, alert, oriented x3 male, lying in bed comfortably, in no acute distress. HEENT: Normocephalic, atraumatic. Anicteric. No thrush. Oral mucosa moist. NECK: Supple, no JVD. LUNGS: Clear bilaterally. No wheezing. HEART: S1, S2. No murmurs. ABDOMEN: Mildly distended, mild diffuse tenderness present, bowel sounds present. No rebound, no guarding. EXTREMITIES: No edema, no cyanosis. DERMATOLOGIC: Warm, dry, no generalized rash. NEUROLOGIC: Alert, oriented x3, grossly nonfocal. PSYCHIATRIC: Calm and cooperative. Medications: Inpatient Meds: Medications reviewed. Labs: Lab Laboratory Tests Test 02/20/22 06:30 02/20/22 09:35 White Blood Count 14.7 x10^3/uL (4.0-11.0) Red Blood Count 4.19 x10^6/uL (4.30-5.70) Hemoglobin 11.0 g/dL (13.0-17.5) Hematocrit 34.4 % (39.0-53.0) Mean Corpuscular Volume 82 fL (79-100) Mean Corpuscular Hemoglobin 26 pg (25-35) Mean Corpuscular Hemoglobin Concent 32 g/dL (31-37) Red Cell Distribution Width 15.3 % (11.5-14.5) Platelet Count 297 x10^3/uL (140-400) Neutrophils (%) (Auto) 85 % (31-73) Lymphocytes (%) (Auto) 6 % (24-48) Monocytes (%) (Auto) 8 % (0-9) Eosinophils (%) (Auto) 1 % (0-3) Basophils (%) (Auto) 0 % (0-3) Neutrophils # (Auto) 12.5 x10^3/uL (1.8-7.7) Lymphocytes # (Auto) 0.9 x10^3/uL (1.0-4.8) Monocytes # (Auto) 1.2 x10^3/uL (0.0-1.1) Eosinophils # (Auto) 0.1 x10^3/uL (0.0-0.7) Basophils # (Auto) 0.0 x10^3/uL (0.0-0.2) Sodium Level 134 mmol/L (136-145) Potassium Level 3.6 mmol/L (3.5-5.1) Chloride Level 94 mmol/L (98-107) Carbon Dioxide Level 33 mmol/L (21-32) Anion Gap 7 (6-14) Blood Urea Nitrogen 12 mg/dL (8-26) Creatinine 0.8 mg/dL (0.7-1.3) Estimated GFR (Cockcroft-Gault) 120.1 BUN/Creatinine Ratio 15 (6-20) Glucose Level 124 mg/dL (70-99) Calcium Level 9.5 mg/dL (8.5-10.1) Total Bilirubin 0.4 mg/dL (0.2-1.0) Aspartate Amino Transf (AST/SGOT) 29 U/L (15-37) Alanine Aminotransferase (ALT/SGPT) 42 U/L (16-63) Alkaline Phosphatase 77 U/L (46-116) Total Protein 8.2 g/dL (6.4-8.2) Albumin 2.7 g/dL (3.4-5.0) Albumin/Globulin Ratio 0.5 (1.0-1.7) Prothrombin Time 14.2 SEC (11.7-14.0) Prothromb Time International Ratio 1.1 (0.8-1.1) Objective: Assessment: MICRO: Urine culture negative. Blood culture none. LABORATORY DATA: UA showed 20-40 wbc's. IMAGING: CT abdomen and pelvis reveals active inflammation, small amount of free fluid adjacent to the walled-off collection associated with the tail of the pancreas measuring 7.3 x 6.7 x 6.8 cm. The rest of the pancreas is within normal limits. This could be bland collection such as evolving pseudocyst with residual inflammation from pancreatitis, mild active pancreatitis at the 1. Fever.pattern improving 2. Leukocytosis. 3. Intractable abdominal pain, constipation, pancreatitis with fluid collection, partial splenic vein thrombosis. 4. Shortness of breath, likely reactive from pancreatitis. 5. Constipation. Plan: Plan of Care Cont meropenem was on zosyn. GI following status post IR fluid drainage. Attempts were made for transfer to or [facility] If the patient has a temperature of greater than 101, please obtain blood cultures. Monitor labs and cultures. Cont supportive care JORGE ALBERTO GORDILLO MD Feb 20, 2022 13:51
[2022-02-20] MEDS ORDERED: MIDAZOLAM HCL/PF 2 MG/2 ML VIAL. IV ONE (14:30)
[2022-02-20] MEDS ORDERED: LIDOCAINE WITH 8.4% SOD BICARB 3 ML DISP.SYRIN. IJ ONE (14:30)
[2022-02-20] MEDS ORDERED: fentaNYL PF VIAL 100 MCG/2 ML VIAL IV ONE (14:30)
--- NOTE | 2022-02-20 17:08 | RAD ---
CT-guided aspiration, pancreatic tail pseudocysts 02/20/2022 INDICATION: Pancreatic tail pseudocyst. Concern for infection. Sampling requested for definitive francisco collins. Consent: The procedure was explained in its entirety to the patient or the patients designated repres entative by a member of the treatment team, including a discussion of the risks, benefits and commonl y accepted alternatives to the procedure, as well as the expected consequences of no therapy whatsoev er. Discussion of the risks included, but was not limited to, those that are most frequent and thos e that are rare but possibly severe or life-threatening, as well as the possibility of unforeseen com plications.. Procedure: The abdomen was prepped and draped using maximum sterile barrier technique. 1% lidocaine w as administered for local anesthesia. Under intermittent CT guidance a 17-gauge needle was advanced i nto the pancreatic tail cyst/pseudocyst. Aspiration of approximately 200 cc of brown fluid was perfor med. Samples were sent for further evaluation, per ordering physician request. The needle was removed . No immediate complications were identified. Sedation: The procedure was performed under conscious sedation including continuous cardiopulmonary m onitoring via a dedicated sedation nurse. [id number] sedation time:: 18 minutes Impression: CT-guided aspiration, pancreatic tail pseudocyst CT DOSING PQRS STATEMENT: One or more of the following individualized dose reduction techniques were utilized for this examinat ion: 1. Automated exposure control 2. Adjustment of the mA and/or kV according to patient size 3. Use of iterative reconstruction technique Electronically signed by: Jamie Joya MD (02/20/2022 5:06 PM) [id number]
[2022-02-20 17:38] LABS: BF CLARITY TURBID; BF WBC COUNT 170000 /cmm (Not Established)
[2022-02-20 17:39] LABS: BF PMN % 100 %
[2022-02-21] MEDS: HYDROmorphone 2 MG/ML INJ. IVP PRN ×2 (00:59→05:38)
[2022-02-21] MEDS: MEROPENEM 500 MG in IV NORMAL SALINE 50ML 50 ML IV SCH ×5 (01:06→23:58)
[2022-02-21 03:12] VITALS: BP 137/93
[2022-02-21] MEDS: PANTOPRAZOLE IV PUSH 40 MG VIAL. IVP SCH (05:30)
[2022-02-21] MEDS: AA 4.25 %/CALCIUM/LYTES/D5W 1,000 ML IV SCH ×2 (05:30→15:15)
[2022-02-21] MEDS: HEPARIN for SUB-Q USE 5,000 UNIT/ML VIAL. SQ SCH ×3 (05:33→20:53)
[2022-02-21] MEDS: ACETAMINOPHEN 325 MG TABLET. PO PRN (05:38)
[2022-02-21 07:00] VITALS: BP 135/95
[2022-02-21] MEDS: ASPIRIN CHEWABLE 81 MG TABLET. PO SCH (08:26)
[2022-02-21] MEDS: FINASTERIDE 5 MG TABLET. PO SCH (08:26)
[2022-02-21] MEDS: SENNOSIDES/DOCUSATE 8.6/50MG TABLET. PO SCH ×2 (08:26→21:00)
[2022-02-21] MEDS: oxyCODONE/APAP 5/325 1 TAB TABLET PO PRN (08:30)
[2022-02-21 10:01] LABS: ALBUMIN 2.7 g/dL (3.4-5.0); ALBUMIN/GLOBULIN RATIO 0.5 (1.0-1.7); CALCIUM 9.4 mg/dL (8.5-10.1); CREATININE 0.9 mg/dL (0.7-1.3); GFR 104.9; POTASSIUM 3.6 mmol/L (3.5-5.1); TOTAL BILIRUBIN 0.4 mg/dL (0.2-1.0); TOTAL PROTEIN 8.1 g/dL (6.4-8.2)
[2022-02-21 10:25] LABS: BASO % 0 % (0-3); EOS # 0.2 x10^3/uL (0.0-0.7); EOS % 2 % (0-3); HEMOGLOBIN 11.6 g/dL (13.0-17.5); LYMPH # 1.8 x10^3/uL (1.0-4.8); LYMPH % 16 % (24-48); MEAN CORPUSCULAR HEMOGLOBIN 26 pg (25-35); MEAN CORPUSCULAR HGB CONC 32 g/dL (31-37); MEAN CORPUSCULAR VOLUME 83 fL (79-100); MONO # 0.7 x10^3/uL (0.0-1.1); MONO % 7 % (0-9); NEUT # 8.5 x10^3/uL (1.8-7.7); NEUT % 75 % (31-73); PLATELET COUNT 360 x10^3/uL (140-400); RED BLOOD COUNT 4.48 x10^6/uL (4.30-5.70); RED CELL DISTRIBUTION WIDTH 14.9 % (11.5-14.5); WHITE BLOOD COUNT 11.3 x10^3/uL (4.0-11.0)
[2022-02-21 11:00] VITALS: BP 148/87
--- NOTE | 2022-02-21 12:19 | PDOC ---
[employer] PROGRESS NOTE Date of Service DOS: DATE: 02/21/22 TIME: 12:14 Chief Complaint Chief Complaint Assessment/Plan Intractable abdominal pain - Periumbilical abdominal pain, pancreatitis with a pancreatic cyst Constipation Sepsis Plan prn IV pain control. Consult interventional radiology to see if any drainable fluid collection GI consult Home meds as indicated DVT prophylaxis Laxatives History of Present Illness History of Present Illness Mr Doyle is a 57 yo male who presents with several days of periumbilical abd ominal pain radiating through to the back. Associated with nausea but no vomiting. 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 No other masses appreciated. Curiously, he describes a history of back in 2012 where he had a similar cyst that was asymptomatic but found incidentally on imaging and was drained with what sounds like endoscopic ultrasound. He had no further symptoms or problems until now. He does not have any risk factors for pancreatitis. He does not have a history of gallstones or biliary disease and does not drink alcohol. He is not taking any medicines which are associated with pancreatitis. Normally he denies any significant chronic GI complaints such as pain, nausea or indigestion. 02/16 patient evaluated examined at bedside. Complaining of ongoing abdominal pain. However much more controlled. IR consult pending. Informed patient may not be able to be seen by them until Friday as not an emergency and he understands this. Continue current otherwise. 02/17: Patient evaluated examined at bedside. Reported pain about the same well- controlled pain meds but will wear off in a fair bit of pain. GI consulted to today much appreciate the very thorough assessment. IR consult patient agreeable to drainage if deemed good option. 02/18: Febrile 102.1 F overnight. Still with significant pain 9 out of 10 with deep inspiration in his left upper quadrant and into his back and left flank. Tolerating Zosyn IV. CT abdomen pelvis upon my interpretation fluid collection in the tail of the pancreas 7.3 x 6.3 x 6.8 cm pancreatic inflammation. Multiple renal cysts, prostatomegaly. Splenic vein branch appeared ccluded on CT but ultrasound showed Doppler flow. Discussed with GI who discussed with interventional radiology EUS would be appropriate we do not have this ability at our facility and patient wishes for referral to [facility] or [facility] 02/19: Febrile to 100.7 F overnight. Feels like Percocet is covering his pain a little bit but fentanyl is wearing off still with splinting on deep inspiration. Will change IV medications to Dilaudid every 3 hours as needed and consult infectious diseases, changed to Carbapenem. 02/20: T-max 100 F last 24 hours. N.p.o. for consideration of cyst drainage [facility] interventional radiology today WBC still elevated at 14.7. 02/21: Afebrile overnight. Had significantly more pain after is percutaneous drain by IR increase to 2 mg of Dilaudid. Still has very little appetite only thing is asking for his coffee PICC and TPN ordered we will consult general surgery. His [facility] records arrived from 2014 when he previously had EUS. 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 At the time ampulla and CBD appeared normal with no evidence of dilation. CEA at that time was 17.9 he was recommended to follow-up with GI and surgery in clinic Vitals/I&O Vitals/I&O: Vital Signs Date Time Temp Pulse Resp B/P (MAP) Pulse Ox O2 Delivery O2 Flow Rate FiO2 02/21/22 11:00 98.2 91 16 148/87 (107) 98 Nasal Cannula 2.0 98.2 I & O 02/20/22 02/20/22 02/21/22 15:00 23:00 07:00 Intake Total 250 ml 500 ml Output Total 110 ml Balance -110 ml 250 ml 500 ml Physical Exam Physical Exam: GENERAL: Well-developed, well-nourished, alert, oriented x3 male, lying in bed comfortably, in no acute distress. HEENT: Normocephalic, atraumatic. Anicteric. No thrush. Oral mucosa moist. NECK: Supple, no JVD. LUNGS: Clear bilaterally. No wheezing. HEART: S1, S2. No murmurs. ABDOMEN: Mildly distended, mild diffuse tenderness present, bowel sounds present. No rebound, no guarding. EXTREMITIES: No edema, no cyanosis. DERMATOLOGIC: Warm, dry, no generalized rash. NEUROLOGIC: Alert, oriented x3, grossly nonfocal. PSYCHIATRIC: Calm and cooperative. General: Alert, Oriented X3, Cooperative Heart: Regular rate, Normal S1, Normal S2 Lungs: Clear Abdomen: Normal bowel sounds, Soft, No masses, Other (Mild periumbilical tenderness, obesity) Extremities: No clubbing, No cyanosis Skin: No significant lesion Labs Labs: Laboratory Tests Test 02/21/22 09:28 White Blood Count 11.3 x10^3/uL (4.0-11.0) Red Blood Count 4.48 x10^6/uL (4.30-5.70) Hemoglobin 11.6 g/dL (13.0-17.5) Hematocrit 37.0 % (39.0-53.0) Mean Corpuscular Volume 83 fL (79-100) Mean Corpuscular Hemoglobin 26 pg (25-35) Mean Corpuscular Hemoglobin Concent 32 g/dL (31-37) Red Cell Distribution Width 14.9 % (11.5-14.5) Platelet Count 360 x10^3/uL (140-400) Neutrophils (%) (Auto) 75 % (31-73) Lymphocytes (%) (Auto) 16 % (24-48) Monocytes (%) (Auto) 7 % (0-9) Eosinophils (%) (Auto) 2 % (0-3) Basophils (%) (Auto) 0 % (0-3) Neutrophils # (Auto) 8.5 x10^3/uL (1.8-7.7) Lymphocytes # (Auto) 1.8 x10^3/uL (1.0-4.8) Monocytes # (Auto) 0.7 x10^3/uL (0.0-1.1) Eosinophils # (Auto) 0.2 x10^3/uL (0.0-0.7) Basophils # (Auto) 0.0 x10^3/uL (0.0-0.2) Sodium Level 135 mmol/L (136-145) Potassium Level 3.6 mmol/L (3.5-5.1) Chloride Level 96 mmol/L (98-107) Carbon Dioxide Level 33 mmol/L (21-32) Anion Gap 6 (6-14) Blood Urea Nitrogen 15 mg/dL (8-26) Creatinine 0.9 mg/dL (0.7-1.3) Estimated GFR (Cockcroft-Gault) 104.9 BUN/Creatinine Ratio 17 (6-20) Glucose Level 186 mg/dL (70-99) Calcium Level 9.4 mg/dL (8.5-10.1) Total Bilirubin 0.4 mg/dL (0.2-1.0) Aspartate Amino Transf (AST/SGOT) 35 U/L (15-37) Alanine Aminotransferase (ALT/SGPT) 40 U/L (16-63) Alkaline Phosphatase 77 U/L (46-116) Total Protein 8.1 g/dL (6.4-8.2) Albumin 2.7 g/dL (3.4-5.0) Albumin/Globulin Ratio 0.5 (1.0-1.7) Assessment and Plan Assessmemt and Plan Problems Medical Problems: (1) Failure of outpatient treatment Status: Acute (2) Intractable abdominal pain Status: Acute (3) Ketonuria Status: Acute (4) Leukocytosis Status: Acute Comment Review of Relevant I have reviewed the following items dalia (where applicable) has been applied. Medications: Current Medications Medications (Trade) Dose Ordered Sig/Chirag Route PRN Reason Start Time Stop Time Status Last Admin Dose Admin Lidocaine HCl (Buffered Lidocaine 1%) 5 ml 1X ONCE IJ 02/20/22 14:30 02/20/22 14:34 DC 02/20/22 14:14 Midazolam HCl (Versed) 1 mg 1X ONCE IV 02/20/22 14:30 02/20/22 14:34 DC 02/20/22 14:13 Fentanyl Citrate (Fentanyl 2ml Vial) 50 mcg 1X ONCE IV 02/20/22 14:30 02/20/22 14:34 DC 02/20/22 14:13 Justifications for Admission Other Justification AJAY HOFFMAN MD Feb 21, 2022 12:19
--- NOTE | 2022-02-21 12:32 | PDOC ---
Date of Service: DATE: 02/21/22 TIME: 12:19 Subjective: Subjective: Pain back to where it was - worse than yesterday, started when tried clear liquids again. Objective: Objective: D/w nurse - feels worse today. On PPN. [facility] records: --in 2013, pancreatic mass was incidental finding on CT in ER (evaluated for SOA) --follow-up MRI showed septated cystic structure in pancreatic tail --another MRI in 2014 showed increased size, referred to surgery who recommended EUS - if mucinous cystic neoplasm recommend resection, if serous cystic neoplasm recommend observation --EUS 07/2015: large cystic lesion (3.5 x 3 cm) in tail of pancreas, simple- appearing, surrounding pancreatic parenchyma and PD appeared normal without direct communication, no mural nodularity, normal ampulla, normal CBD 6mm clear fluid aspirated, path suggestive of microcystic adenoma, amylase of cystic fluid 297, BF CEA 17.9 --recommendation per GI in 10/2015 to f/u w/ surgery --colonoscopy 05/2016: 5mm sessile tubular adenoma in descending colon and internal hemorrhoids - recommendation for colonoscopy in 1 year because of poor prep Vital Signs: Vital Signs Date Time Temp Pulse Resp B/P (MAP) Pulse Ox O2 Delivery O2 Flow Rate FiO2 02/21/22 11:00 98.2 91 16 148/87 (107) 98 Nasal Cannula 2.0 98.2 Labs: Laboratory Tests Test 02/21/22 09:28 White Blood Count 11.3 x10^3/uL Red Blood Count 4.48 x10^6/uL Hemoglobin 11.6 g/dL Hematocrit 37.0 % Mean Corpuscular Volume 83 fL Mean Corpuscular Hemoglobin 26 pg Mean Corpuscular Hemoglobin Concent 32 g/dL Red Cell Distribution Width 14.9 % Platelet Count 360 x10^3/uL Neutrophils (%) (Auto) 75 % Lymphocytes (%) (Auto) 16 % Monocytes (%) (Auto) 7 % Eosinophils (%) (Auto) 2 % Basophils (%) (Auto) 0 % Neutrophils # (Auto) 8.5 x10^3/uL Lymphocytes # (Auto) 1.8 x10^3/uL Monocytes # (Auto) 0.7 x10^3/uL Eosinophils # (Auto) 0.2 x10^3/uL Basophils # (Auto) 0.0 x10^3/uL Sodium Level 135 mmol/L Potassium Level 3.6 mmol/L Chloride Level 96 mmol/L Carbon Dioxide Level 33 mmol/L Anion Gap 6 Blood Urea Nitrogen 15 mg/dL Creatinine 0.9 mg/dL Estimated GFR (Cockcroft-Gault) 104.9 BUN/Creatinine Ratio 17 Glucose Level 186 mg/dL Calcium Level 9.4 mg/dL Total Bilirubin 0.4 mg/dL Aspartate Amino Transf (AST/SGOT) 35 U/L Alanine Aminotransferase (ALT/SGPT) 40 U/L Alkaline Phosphatase 77 U/L Total Protein 8.1 g/dL Albumin 2.7 g/dL Albumin/Globulin Ratio 0.5 Imaging: IR procedure 02/[address] guidance a 17-gauge needle was advanced into the pancrea tic tail cyst/pseudocyst. Aspiration of approximately 200 cc of brown fluid was performed. PE: GEN: NAD - up in chair LUNGS: room air HEART: RRR ABD: distended, epigastric discomfort NEURO/PSYCH: A & O 3, pleasant per usual A/P: Upper abdominal pain - worse today Pancreatic cyst s/p aspirate 02/19/22, on atbx per ID -- Outside records as above. Will review all w/ Dr. Mendez. ?any need to re-visit possible transfer Justicifation of Admission Dx: Justifications for Admission: Justification of Admission Dx: Yes REMBERTO CARDENAS Feb 21, 2022 12:32
[2022-02-21 12:56] LABS: MAGNESIUM 2.6 mg/dL (1.8-2.4); PHOSPHORUS 4.4 mg/dL (2.6-4.7)
--- NOTE | 2022-02-21 14:12 | PDOC2 ---
SOLAGAURAV Lorena SUPPLEMENTAL NURSE 02/21/22 1412: CONSULT Date of Consult Date of Consult DATE: 02/21/22 TIME: 13:41 Reason for Consult Reason for Consult: pancreatic cyst Referring Physician Referring Physician: Dr Romo Identification/Chief Complaint Chief Complaint abdominal pain Source Source: Chart review, Patient History of Present Illness Reason for Visit: Admitted with abdominal pain for the last week and nausea. Hx of a pancreatic cyst in 2012, reviewed records from [place] and EUS in 2014, path with microcystic adenoma--they recommended surgical follow up--pt reports he was not told this, thought cyst resolved Underwent apsiration of cyst yesterday. Thought was improved, however when started clears, worsened Past Medical History Pulmonary: Other (sleep apnea) GI: Other (Pancreatic cyst) Past Surgical History Past Surgical History: Hernia Repair Family History Family History: Other (noncontributory) Social History No ALCOHOL: occassional Current Problem List Problem List Problems Medical Problems: (1) Failure of outpatient treatment Status: Acute (2) Intractable abdominal pain Status: Acute (3) Ketonuria Status: Acute (4) Leukocytosis Status: Acute Current Medications Current Medications Current Medications Hydromorphone HCl (Dilaudid) 1 mg 1X ONCE IVP Last administered on 02/15/22at 13:37; Start 02/15/22 at 13:15; Stop 02/15/22 at 13:17; Status DC Ondansetron HCl (Zofran) 4 mg 1X ONCE IVP Last administered on 02/15/22at 13:34; Start 02/15/22 at 13:15; Stop 02/15/22 at 13:17; Status DC Sodium Chloride 1,000 ml @ 1,000 mls/hr 1X ONCE IV Last administered on 02/15/22at 13:30; Start 02/15/22 at 13:15; Stop 02/15/22 at 14:14; Status DC Ondansetron HCl (Zofran) 4 mg PRN Q8HRS PRN IVP NAUSEA/VOMITING; Start 02/15/22 at 14:45; Stop 02/16/22 at 14:44; Status DC Iohexol (Omnipaque 300 Mg/ml) 75 ml 1X ONCE IV Last administered on 02/15/22at 15:39; Start 02/15/22 at 15:15; Stop 02/15/22 at 15:16; Status DC Info (CONTRAST GIVEN -- Rx MONITORING) 1 each PRN DAILY PRN MC SEE COMMENTS; Start 02/15/22 at 15:15; Stop 02/17/22 at 15:14; Status DC Hydromorphone HCl (Dilaudid) 1 mg 1X ONCE IVP Last administered on 02/15/22at 15:55; Start 02/15/22 at 15:45; Stop 02/15/22 at 15:46; Status DC Piperacillin Sod/ Tazobactam Sod (Zosyn Per Pharmacy) 1 each PRN DAILY PRN MC SEE COMMENTS; Start 02/15/22 at 16:30; Stop 02/19/22 at 16:40; Status DC Pantoprazole Sodium (PROTONIX VIAL for IV PUSH) 40 mg DAILYAC IVP Last administered on 02/21/22at 05:30; Start 02/15/22 at 16:30 Polyethylene Glycol (miraLAX PACKET) 17 gm DAILY PO Last administered on 02/19/22at 09:39; Start 02/15/22 at 16:30; Stop 02/20/22 at 10:10; Status DC Multi-Ingredient Mouthwash/Gargle (Gi Cocktail) 20 ml PRN QID PRN PO CHEST PAIN; Start 02/15/22 at 16:30 Aspirin (Aspirin Chewable) 81 mg DAILY PO Last administered on 02/21/22at 08:26; Start 02/16/22 at 09:00 Finasteride (Proscar) 5 mg DAILY PO Last administered on 02/21/22at 08:26; Start 02/16/22 at 09:00 Ondansetron HCl (Zofran) 4 mg PRN Q6HRS PRN IVP NAUSEA/VOMITING, 1st choice Last administered on 02/21/22at 01:15; Start 02/15/22 at 16:30 Prochlorperazine Edisylate (Compazine) 10 mg PRN Q6HRS PRN IVP NAUSEA/VOMITING 2ND CHOICE; Start 02/15/22 at 16:30 Calcium Carbonate/ Glycine (Tums) 500 mg PRN Q3HRS PRN PO UPSET STOMACH; Start 02/15/22 at 16:30 Zolpidem Tartrate (Ambien) 5 mg PRN QHS PRN PO INSOMNIA, MAY REPEAT IN 1HR; Start 02/15/22 at 16:30 Info (Non-Icu Electrolyte Protocol) 1 ea PRN DAILY PRN MC SEE COMMENTS; Start 02/15/22 at 16:30 Morphine Sulfate (Morphine Sulfate) 1 mg PRN Q1HR PRN IV PAIN-SEE COMMENTS Last administered on 02/15/22at 20:00; Start 02/15/22 at 16:30; Stop 02/19/22 at 11:59; Status DC Morphine Sulfate (Morphine Sulfate) 2 mg PRN Q1HR PRN IV PAIN-SEE COMMENTS Last administered on 02/17/22at 00:20; Start 02/15/22 at 16:30; Stop 02/19/22 at 11:59; Status DC Acetaminophen (Tylenol) 650 mg PRN Q6HRS PRN PO Headaches, Temp > 101.5F Last administered on 02/21/22at 05:38; Start 02/15/22 at 16:30 Senna/Docusate Sodium (Senna Plus) 1 tab BID PO Last administered on 02/19/22at 21:43; Start 02/15/22 at 21:00 Heparin Sodium (Porcine) (Heparin Sodium) 5,000 unit Q8HRS SQ ; Start 02/15/22 at 16:45 Piperacillin Sod/ Tazobactam Sod 3.375 gm/Sodium Chloride 50 ml @ 100 mls/hr Q6HRS IV Last administered on 02/19/22at 13:58; Start 02/15/22 at 17:00; Stop 02/19/22 at 16:40; Status DC Fentanyl Citrate (Fentanyl 2ml Vial) 75 mcg PRN Q2HR PRN IVP PAIN Last administered on 02/19/22at 06:26; Start 02/16/22 at 11:00; Stop 02/19/22 at 11:59; Status DC Oxycodone/ Acetaminophen (Percocet 5/325) 1 tab PRN Q6HRS PRN PO MODERATE TO SEVERE PAIN Last administered on 02/21/22at 08:30; Start 02/18/22 at 10:00 Amino Acids/ Electrolytes/ Dextrose 1,000 ml @ 80 mls/hr [id number] IV Last administered on 02/21/22at 05:30; Start 02/18/22 at 12:15 Potassium Bicarbonate (Potassium Effervescent Tablet) 40 meq 1X ONCE PO Last administered on 02/19/22at 13:58; Start 02/19/22 at 12:00; Stop 02/19/22 at 12:01; Status DC Hydromorphone HCl (Dilaudid) 2 mg PRN Q3HRS PRN IVP PAIN Last administered on 02/21/22at 00:59; Start 02/19/22 at 12:00 Hydromorphone HCl (Dilaudid) 1 mg PRN Q3HRS PRN IVP PAIN Last administered on 02/21/22at 05:38; Start 02/19/22 at 12:00 Meropenem 500 mg/ Sodium Chloride 50 ml @ 100 mls/hr Q6HRS IV Last administered on 02/21/22at 12:11; Start 02/19/22 at 18:00 Lidocaine HCl (Buffered Lidocaine 1%) 3 ml STK-MED ONCE .ROUTE ; Start 02/20/22 at 13:38; Stop 02/20/22 at 13:38; Status DC Midazolam HCl (Versed) 2 mg STK-MED ONCE .ROUTE ; Start 02/20/22 at 13:51; Stop 02/20/22 at 13:51; Status DC Fentanyl Citrate (Fentanyl 2ml Vial) 100 mcg STK-MED ONCE .ROUTE ; Start 02/20/22 at 13:51; Stop 02/20/22 at 13:51; Status DC Lidocaine HCl (Buffered Lidocaine 1%) 5 ml 1X ONCE IJ Last administered on 02/20/22at 14:14; Start 02/20/22 at 14:30; Stop 02/20/22 at 14:34; Status DC Midazolam HCl (Versed) 1 mg 1X ONCE IV Last administered on 02/20/22at 14:13; Start 02/20/22 at 14:30; Stop 02/20/22 at 14:34; Status DC Fentanyl Citrate (Fentanyl 2ml Vial) 50 mcg 1X ONCE IV Last administered on 02/20/22at 14:13; Start 02/20/22 at 14:30; Stop 02/20/22 at 14:34; Status DC Info (Tpn Per Pharmacy) 1 each PRN DAILY PRN MC SEE COMMENTS; Start 02/21/22 at 12:15 Active Scripts Active Percocet 5-325 mg Tablet (Oxycodone HCl/Acetaminophen) 1 Each Tablet 1-2 Tab PO Q4-6HRS PRN MDD 2 Tablet(s) 7 Days Reported Finasteride 5 Mg Tablet 5 Mg PO DAILY Aspirin 81 Mg Tab.chew 81 Mg PO DAILY Adderall 10 Mg Tablet (Dextroamphetamine/Amphetamine) 10 Mg Tablet 10 Mg PO BID Allergies Allergies: Coded Allergies: No Known Drug Allergies (Unverified , 10/08/21) ROS General: YES: Appetite (loss); No: Chills PSYCHOLOGICAL ROS: No: Anxiety, Irritablity Eyes: No Blurry vision, No Decreased vision HEENT: No: Heacaches, Sore Throat Hematological and Lymphatic: No: Bleeding Problems, Blood Clots Respiratory: No: Cough, Shortness of breath Gastrointestinal: Yes Other (see hpi) Genitourinary: No Dysuria, No Retention Musculoskeletal: No Joint Pain, No Muscle Pain Neurological: No Impaired Coord/balance, No Memory Loss Skin: No Pruritus, No Rash Physical Exam General: Alert, Oriented X3, Cooperative HEENT: Atraumatic, PERRLA Lungs: Clear to auscultation, Normal air movement Heart: Regular rate, Normal S1, Normal S2 Abdomen: Soft, Other (ttp LUQ) Extremities: No clubbing, No cyanosis Skin: No rashes, No breakdown Neuro: Normal gait, Normal speech Psych/Mental Status: Mental status NL, Mood NL Vitals VITALS Vital Signs Date Time Temp Pulse Resp B/P (MAP) Pulse Ox O2 Delivery O2 Flow Rate FiO2 02/21/22 11:00 98.2 91 16 148/87 (107) 98 Nasal Cannula 2.0 98.2 Labs Labs Laboratory Tests Test 02/19/22 14:53 02/20/22 06:30 02/20/22 09:35 02/21/22 09:28 Body Fluid Source Body Fluid Color Body Fluid Clarity Turbid Body Fluid Nucleated Cells [id number] /cmm (Not Body Fluid Polymorphonuclear Cells 100 % Body Fluid Total RBCs Counted /cmm (Not Established) Body Fluid Amylase 33 U/L (.) White Blood Count 14.7 x10^3/uL (4.0-11.0) 11.3 x10^3/uL (4.0-11.0) Red Blood Count 4.19 x10^6/uL (4.30-5.70) 4.48 x10^6/uL (4.30-5.70) Hemoglobin 11.0 g/dL (13.0-17.5) 11.6 g/dL (13.0-17.5) Hematocrit 34.4 % (39.0-53.0) 37.0 % (39.0-53.0) Mean Corpuscular Volume 82 fL (79-100) 83 fL (79-100) Mean Corpuscular Hemoglobin 26 pg (25-35) 26 pg (25-35) Mean Corpuscular Hemoglobin Concent 32 g/dL (31-37) 32 g/dL (31-37) Red Cell Distribution Width 15.3 % (11.5-14.5) 14.9 % (11.5-14.5) Platelet Count 297 x10^3/uL (140-400) 360 x10^3/uL (140-400) Neutrophils (%) (Auto) 85 % (31-73) 75 % (31-73) Lymphocytes (%) (Auto) 6 % (24-48) 16 % (24-48) Monocytes (%) (Auto) 8 % (0-9) 7 % (0-9) Eosinophils (%) (Auto) 1 % (0-3) 2 % (0-3) Basophils (%) (Auto) 0 % (0-3) 0 % (0-3) Neutrophils # (Auto) 12.5 x10^3/uL (1.8-7.7) 8.5 x10^3/uL (1.8-7.7) Lymphocytes # (Auto) 0.9 x10^3/uL (1.0-4.8) 1.8 x10^3/uL (1.0-4.8) Monocytes # (Auto) 1.2 x10^3/uL (0.0-1.1) 0.7 x10^3/uL (0.0-1.1) Eosinophils # (Auto) 0.1 x10^3/uL (0.0-0.7) 0.2 x10^3/uL (0.0-0.7) Basophils # (Auto) 0.0 x10^3/uL (0.0-0.2) 0.0 x10^3/uL (0.0-0.2) Sodium Level 134 mmol/L (136-145) 135 mmol/L (136-145) Potassium Level 3.6 mmol/L (3.5-5.1) 3.6 mmol/L (3.5-5.1) Chloride Level 94 mmol/L (98-107) 96 mmol/L (98-107) Carbon Dioxide Level 33 mmol/L (21-32) 33 mmol/L (21-32) Anion Gap 7 (6-14) 6 (6-14) Blood Urea Nitrogen 12 mg/dL (8-26) 15 mg/dL (8-26) Creatinine 0.8 mg/dL (0.7-1.3) 0.9 mg/dL (0.7-1.3) Estimated GFR (Cockcroft-Gault) 120.1 104.9 BUN/Creatinine Ratio 15 (6-20) 17 (6-20) Glucose Level 124 mg/dL (70-99) 186 mg/dL (70-99) Calcium Level 9.5 mg/dL (8.5-10.1) 9.4 mg/dL (8.5-10.1) Total Bilirubin 0.4 mg/dL (0.2-1.0) 0.4 mg/dL (0.2-1.0) Aspartate Amino Transf (AST/SGOT) 29 U/L (15-37) 35 U/L (15-37) Alanine Aminotransferase (ALT/SGPT) 42 U/L (16-63) 40 U/L (16-63) Alkaline Phosphatase 77 U/L (46-116) 77 U/L (46-116) Total Protein 8.2 g/dL (6.4-8.2) 8.1 g/dL (6.4-8.2) Albumin 2.7 g/dL (3.4-5.0) 2.7 g/dL (3.4-5.0) Albumin/Globulin Ratio 0.5 (1.0-1.7) 0.5 (1.0-1.7) Prothrombin Time 14.2 SEC (11.7-14.0) Prothromb Time International Ratio 1.1 (0.8-1.1) Phosphorus Level 4.4 mg/dL (2.6-4.7) Magnesium Level 2.6 mg/dL (1.8-2.4) Laboratory Tests Test 02/21/22 09:28 White Blood Count 11.3 x10^3/uL (4.0-11.0) Red Blood Count 4.48 x10^6/uL (4.30-5.70) Hemoglobin 11.6 g/dL (13.0-17.5) Hematocrit 37.0 % (39.0-53.0) Mean Corpuscular Volume 83 fL (79-100) Mean Corpuscular Hemoglobin 26 pg (25-35) Mean Corpuscular Hemoglobin Concent 32 g/dL (31-37) Red Cell Distribution Width 14.9 % (11.5-14.5) Platelet Count 360 x10^3/uL (140-400) Neutrophils (%) (Auto) 75 % (31-73) Lymphocytes (%) (Auto) 16 % (24-48) Monocytes (%) (Auto) 7 % (0-9) Eosinophils (%) (Auto) 2 % (0-3) Basophils (%) (Auto) 0 % (0-3) Neutrophils # (Auto) 8.5 x10^3/uL (1.8-7.7) Lymphocytes # (Auto) 1.8 x10^3/uL (1.0-4.8) Monocytes # (Auto) 0.7 x10^3/uL (0.0-1.1) Eosinophils # (Auto) 0.2 x10^3/uL (0.0-0.7) Basophils # (Auto) 0.0 x10^3/uL (0.0-0.2) Sodium Level 135 mmol/L (136-145) Potassium Level 3.6 mmol/L (3.5-5.1) Chloride Level 96 mmol/L (98-107) Carbon Dioxide Level 33 mmol/L (21-32) Anion Gap 6 (6-14) Blood Urea Nitrogen 15 mg/dL (8-26) Creatinine 0.9 mg/dL (0.7-1.3) Estimated GFR (Cockcroft-Gault) 104.9 BUN/Creatinine Ratio 17 (6-20) Glucose Level 186 mg/dL (70-99) Calcium Level 9.4 mg/dL (8.5-10.1) Phosphorus Level 4.4 mg/dL (2.6-4.7) Magnesium Level 2.6 mg/dL (1.8-2.4) Total Bilirubin 0.4 mg/dL (0.2-1.0) Aspartate Amino Transf (AST/SGOT) 35 U/L (15-37) Alanine Aminotransferase (ALT/SGPT) 40 U/L (16-63) Alkaline Phosphatase 77 U/L (46-116) Total Protein 8.1 g/dL (6.4-8.2) Albumin 2.7 g/dL (3.4-5.0) Albumin/Globulin Ratio 0.5 (1.0-1.7) Assessment/Plan Assessment/Plan pancreatic cyst may need to consider eval at tertiary center JULIANA EM MD 02/21/22 5728: CONSULT Assessment/Plan Assessment/Plan Pt seen and examined. Agree with Ms. Sultana's note Pt does feel better overall with gradual improvement agree with supportive care and should eventually be d/c home. Pt with persistent/recurrent cyst vs pseudocyst. Given persistent/recurrent nature, concern for cause of pancreatitis, and recurrence after previous EUS, would favor elective distal pancreatectomy and splenectomy (some concern for splenic thrombosis on initial CT). Low risk of malignancy, based on previous EUS results, except for size. D/w pt and reviewed CT. Encouraged pt to f/u in office to consider surgical resection. As pt has previously had EUS, unsure if this would change clinical decision making, unless pt wishes to pursue this option. Options would include Dr. Whitney at [facility] or Dr. Naik at [facility]. Thanks for consult! GAURAV SULTANA APRN Feb 21, 2022 14:12 JULIANA EM MD Feb 21, 2022 14:58
[2022-02-21] MEDS: TPN PER PHARMACY MC PRN (14:18)
--- NOTE | 2022-02-21 14:19 | NUR ---
Pharmacy TPN Dosing Note S: BRISSA PENA is a 57 year old M Currently receiving TPN started 02/21/22 B:Pertinent PMH: pancreatitis Height: 5 feet, 6 inches Weight: 117.666351 kg Current diet: CLD LABS: Sodium: 135 Potassium: 3.6 Chloride: 96 Calcium: 9.4 Corrected Calcium: 10.44 Magnesium: 2.6 CO2: 33 SCr: 0.9 Glucose: 186 Albumin: 2.7 AST: 35 ALT: 40 TPN FORMULA: TPN TYPE: AMINO ACIDS: 60 gm DEXTROSE: 195 gm LIPIDS: 20 gm SODIUM CHLORIDE: 90 mEq SODIUM ACETATE: mEq SODIUM PHOSPHATE: mmol POTASSIUM CHLORIDE: 50 mEq POTASSIUM ACETATE: mEq POTASSIUM PHOSPHATE: 13.6 mmol MAGNESIUM: 2.5 mEq CALCIUM: 0 mEq INSULIN: units MULTIPLE VITAMIN: 10 ml TRACE ELEMENTS: 1ml ml(s) TPN PLAN: Start standard tpn with standard lytes. Macros to be adjusted by dietitian. R: Begin TPN as ordered Will monitor electrolytes, glucose, and tolerance to TPN. RANDI UGARTE, [facility], 02/21/22 3000
--- NOTE | 2022-02-21 14:32 | NUR ---
Allergies and reactions INR 1.1 BUN 15 Cr 0.9 Platelets 360 Blood culture done y blood culture results no growth 02/19/22 Order Verified Y Consent signed Y Previous PICC placement N Past Medical/Surgical history and current diagnosis reviewed Y Patient Medical /Surgical History Related to PICC line placement Infectious Disease consult Special considerations for PICC line placement Infections PICC placement indication Total Parenteral Nutrition (TPN) Nona PACE name of PICC Nurse Addendum: 02/21/22 at 1543 by ROXANA DOMINGUEZ RN Amended: Links added.
--- NOTE | 2022-02-21 14:58 | PDOC ---
Infectious Disease Note Subjective: Subjective Patient feels better Abdominal pain is under control currently Fever pattern improved On room air Vital Signs: Vital Signs Vital Signs Date Time Temp Pulse Resp B/P (MAP) Pulse Ox O2 Delivery O2 Flow Rate FiO2 02/21/22 11:00 98.2 91 16 148/87 (107) 98 Nasal Cannula 2.0 98.2 Physical Exam: PHYSICAL EXAM GENERAL: Well-developed, well-nourished, alert, oriented x3 male, lying in bed comfortably, in no acute distress. HEENT: Normocephalic, atraumatic. Anicteric. No thrush. Oral mucosa moist. NECK: Supple, no JVD. LUNGS: Clear bilaterally. No wheezing. HEART: S1, S2. No murmurs. ABDOMEN: Mildly distended, mild diffuse tenderness present, bowel sounds present. No rebound, no guarding. EXTREMITIES: No edema, no cyanosis. DERMATOLOGIC: Warm, dry, no generalized rash. NEUROLOGIC: Alert, oriented x3, grossly nonfocal. PSYCHIATRIC: Calm and cooperative. Medications: Inpatient Meds: Medications reviewed. Labs: Lab Laboratory Tests Test 02/21/22 09:28 White Blood Count 11.3 x10^3/uL (4.0-11.0) Red Blood Count 4.48 x10^6/uL (4.30-5.70) Hemoglobin 11.6 g/dL (13.0-17.5) Hematocrit 37.0 % (39.0-53.0) Mean Corpuscular Volume 83 fL (79-100) Mean Corpuscular Hemoglobin 26 pg (25-35) Mean Corpuscular Hemoglobin Concent 32 g/dL (31-37) Red Cell Distribution Width 14.9 % (11.5-14.5) Platelet Count 360 x10^3/uL (140-400) Neutrophils (%) (Auto) 75 % (31-73) Lymphocytes (%) (Auto) 16 % (24-48) Monocytes (%) (Auto) 7 % (0-9) Eosinophils (%) (Auto) 2 % (0-3) Basophils (%) (Auto) 0 % (0-3) Neutrophils # (Auto) 8.5 x10^3/uL (1.8-7.7) Lymphocytes # (Auto) 1.8 x10^3/uL (1.0-4.8) Monocytes # (Auto) 0.7 x10^3/uL (0.0-1.1) Eosinophils # (Auto) 0.2 x10^3/uL (0.0-0.7) Basophils # (Auto) 0.0 x10^3/uL (0.0-0.2) Sodium Level 135 mmol/L (136-145) Potassium Level 3.6 mmol/L (3.5-5.1) Chloride Level 96 mmol/L (98-107) Carbon Dioxide Level 33 mmol/L (21-32) Anion Gap 6 (6-14) Blood Urea Nitrogen 15 mg/dL (8-26) Creatinine 0.9 mg/dL (0.7-1.3) Estimated GFR (Cockcroft-Gault) 104.9 BUN/Creatinine Ratio 17 (6-20) Glucose Level 186 mg/dL (70-99) Calcium Level 9.4 mg/dL (8.5-10.1) Phosphorus Level 4.4 mg/dL (2.6-4.7) Magnesium Level 2.6 mg/dL (1.8-2.4) Total Bilirubin 0.4 mg/dL (0.2-1.0) Aspartate Amino Transf (AST/SGOT) 35 U/L (15-37) Alanine Aminotransferase (ALT/SGPT) 40 U/L (16-63) Alkaline Phosphatase 77 U/L (46-116) Total Protein 8.1 g/dL (6.4-8.2) Albumin 2.7 g/dL (3.4-5.0) Albumin/Globulin Ratio 0.5 (1.0-1.7) Objective: Assessment: 1. Fever.pattern improving 2. Leukocytosis. Improving 3. Intractable abdominal pain, 4. Pancreatitis with fluid collection, partial splenic vein thrombosis. Status post IR drainage [id number], 100% PMNs Cultures negative so far 4. Shortness of breath, likely reactive from pancreatitis. 5. Constipation. Plan: Plan of Care Cont meropenem was on zosyn. Status post IR drainage Attempts were made for transfer to or [facility] If the patient has a temperature of greater than 101, please obtain blood cultures. Started on TPN Monitor labs and cultures. Cont supportive care JORGE ALBERTO GORDILLO MD Feb 21, 2022 14:58
--- NOTE | 2022-02-21 15:41 | NUR ---
Procedure: Following complete explanation of the PICC procedure including the indications, risks, and potential complications, informed consent was obtained. The possibility for infection was discussed along with signs, symptoms, and prevention. All the questions were answered. Written and verbal patient education was provided. Hand hygiene performed. Standardized central line checklist was utilized. The patient was placed in the supine position, the arm was prepped with chlorhexidine and patient draped with maximum sterile barrier. 2 mL 1% lidocaine was infiltrated into the skin to provide local anesthesia. A thorough assessment of RIGHT upper extremity completed. Using real-time ultrasound guidance and standardized micro puncture set, the BASILLIC vein was punctured and a peel away sheath was placed using the modified Seldinger technique. A tip location device was used to ensure adequate catheter placement. The catheter was secured using a securement device and an antimicrobial patch was applied directly on the insertion site followed by a transparent dressing. All ports withdraw blood and flush without resistance. Patient tolerated the procedure without apparent complication(s). DOUBLE Lumen Power PICC placement successful and uncomplicated. Placement verified by EKG tip confirmation system and/or chest x-ray. Tip located in the CAJ Complications: NONE Addendum: 02/21/22 at 1543 by ROXANA DOMINGUEZ RN Amended: Links added.
[2022-02-21 19:30] VITALS: BP 126/84
[2022-02-21] MEDS ORDERED: TOTAL PARENTERAL NUTRITION IV SCH (22:00)
[2022-02-21] MEDS ORDERED: [UNRECOGNIZED DRUG - OTHER] IV SCH (22:00)
[2022-02-21] MEDS ORDERED: AMINO ACID IV SCH (22:00)
[2022-02-21] MEDS ORDERED: DEXTROSE 70% IV SCH (22:00)
[2022-02-21 22:46] VITALS: BP 132/89
[2022-02-22 02:59] VITALS: BP 149/90
[2022-02-22] MEDS: HEPARIN for SUB-Q USE 5,000 UNIT/ML VIAL. SQ SCH ×3 (05:02→22:00)
[2022-02-22] MEDS: MEROPENEM 500 MG in IV NORMAL SALINE 50ML 50 ML IV SCH ×3 (05:30→18:26)
[2022-02-22] MEDS: PANTOPRAZOLE IV PUSH 40 MG VIAL. IVP SCH (05:47)
[2022-02-22 06:06] LABS: CALCIUM 9.1 mg/dL (8.5-10.1); CREATININE 0.8 mg/dL (0.7-1.3); GFR 120.1; MAGNESIUM 2.2 mg/dL (1.8-2.4); PHOSPHORUS 3.1 mg/dL (2.6-4.7); POTASSIUM 4.3 mmol/L (3.5-5.1)
[2022-02-22 07:00] VITALS: BP_SYST 106; BP_SYST 130; BP_DIAS 55; BP_DIAS 82
[2022-02-22] MEDS: SENNOSIDES/DOCUSATE 8.6/50MG TABLET. PO SCH ×2 (08:04→21:00)
[2022-02-22] MEDS: FINASTERIDE 5 MG TABLET. PO SCH (08:04)
[2022-02-22] MEDS: ASPIRIN CHEWABLE 81 MG TABLET. PO SCH (08:04)
--- NOTE | 2022-02-22 10:52 | PDOC ---
[employer] PROGRESS NOTE Date of Service DOS: DATE: 02/22/22 TIME: 10:33 Chief Complaint Chief Complaint Assessment/Plan Intractable abdominal pain - Periumbilical abdominal pain, pancreatitis with a pancreatic cyst Constipation Sepsis Plan prn IV pain control. Consult interventional radiology to see if any drainable fluid collection GI consult Home meds as indicated DVT prophylaxis Laxatives History of Present Illness History of Present Illness Mr Doyle is a 57 yo male who presents with several days of periumbilical abd ominal pain radiating through to the back. Associated with nausea but no vomiting. 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 No other masses appreciated. Curiously, he describes a history of back in 2012 where he had a similar cyst that was asymptomatic but found incidentally on imaging and was drained with what sounds like endoscopic ultrasound. He had no further symptoms or problems until now. He does not have any risk factors for pancreatitis. He does not have a history of gallstones or biliary disease and does not drink alcohol. He is not taking any medicines which are associated with pancreatitis. Normally he denies any significant chronic GI complaints such as pain, nausea or indigestion. 02/16 patient evaluated examined at bedside. Complaining of ongoing abdominal pain. However much more controlled. IR consult pending. Informed patient may not be able to be seen by them until Friday as not an emergency and he understands this. Continue current otherwise. 02/17: Patient evaluated examined at bedside. Reported pain about the same well- controlled pain meds but will wear off in a fair bit of pain. GI consulted to today much appreciate the very thorough assessment. IR consult patient agreeable to drainage if deemed good option. 02/18: Febrile 102.1 F overnight. Still with significant pain 9 out of 10 with deep inspiration in his left upper quadrant and into his back and left flank. Tolerating Zosyn IV. CT abdomen pelvis upon my interpretation fluid collection in the tail of the pancreas 7.3 x 6.3 x 6.8 cm pancreatic inflammation. Multiple renal cysts, prostatomegaly. Splenic vein branch appeared ccluded on CT but ultrasound showed Doppler flow. Discussed with GI who discussed with interventional radiology EUS would be appropriate we do not have this ability at our facility and patient wishes for referral to [facility] or [facility] 02/19: Febrile to 100.7 F overnight. Feels like Percocet is covering his pain a little bit but fentanyl is wearing off still with splinting on deep inspiration. Will change IV medications to Dilaudid every 3 hours as needed and consult infectious diseases, changed to Carbapenem. 02/20: T-max 100 F last 24 hours. N.p.o. for consideration of cyst drainage [facility] interventional radiology today WBC still elevated at 14.7. 02/21: Afebrile overnight. Had significantly more pain after is percutaneous drain by IR increase to 2 mg of Dilaudid. Still has very little appetite only thing is asking for his coffee PICC and TPN ordered we will consult general surgery. His [facility] records arrived from 2014 when he previously had EUS. 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 At the time ampulla and CBD appeared normal with no evidence of dilation. CEA at that time was 17.9 he was recommended to follow-up with GI and surgery in clinic 02/22: PICC in place now on TPN. Pain is improved his appetite has not. Had consultation with general surgery for consideration of distal pancreatectomy cholecystectomy and splenectomy which he will look into outpatient. Pending cultures from pancreatic cyst aspiration currently. Plan will be to tailor antibiotics toward this and go home on TPN until follow-up with general surgery in 2 weeks and will need to await final culture results prior to discharge planning Vitals/I&O Vitals/I&O: Vital Signs Date Time Temp Pulse Resp B/P (MAP) Pulse Ox O2 Delivery O2 Flow Rate FiO2 02/22/22 08:00 Room Air 02/22/22 07:00 98.2 81 18 130/82 (98) 98 98.2 02/21/22 11:00 2.0 I & O 02/21/22 02/21/22 02/22/22 15:00 23:00 07:00 Intake Total 240 ml 300 ml Output Total 600 ml Balance 240 ml -300 ml Physical Exam Physical Exam: GENERAL: Well-developed, well-nourished, alert, oriented x3 male, lying in bed comfortably, in no acute distress. HEENT: Normocephalic, atraumatic. Anicteric. No thrush. Oral mucosa moist. NECK: Supple, no JVD. LUNGS: Clear bilaterally. No wheezing. HEART: S1, S2. No murmurs. ABDOMEN: Mildly distended, mild diffuse tenderness present, bowel sounds present. No rebound, no guarding. EXTREMITIES: No edema, no cyanosis. DERMATOLOGIC: Warm, dry, no generalized rash. NEUROLOGIC: Alert, oriented x3, grossly nonfocal. PSYCHIATRIC: Calm and cooperative. General: Alert, Oriented X3, Cooperative Heart: Regular rate, Normal S1, Normal S2 Lungs: Clear Abdomen: Soft, Other (ttp LUQ) Extremities: No clubbing, No cyanosis Skin: No rashes, No breakdown Labs Labs: Laboratory Tests Test 02/22/22 05:40 Sodium Level 137 mmol/L (136-145) Potassium Level 4.3 mmol/L (3.5-5.1) Chloride Level 100 mmol/L (98-107) Carbon Dioxide Level 32 mmol/L (21-32) Anion Gap 5 (6-14) Blood Urea Nitrogen 11 mg/dL (8-26) Creatinine 0.8 mg/dL (0.7-1.3) Estimated GFR (Cockcroft-Gault) 120.1 Glucose Level 135 mg/dL (70-99) Calcium Level 9.1 mg/dL (8.5-10.1) Phosphorus Level 3.1 mg/dL (2.6-4.7) Magnesium Level 2.2 mg/dL (1.8-2.4) Triglycerides Level 133 mg/dL (0-150) Assessment and Plan Assessmemt and Plan Problems Medical Problems: (1) Failure of outpatient treatment Status: Acute (2) Intractable abdominal pain Status: Acute (3) Ketonuria Status: Acute (4) Leukocytosis Status: Acute Comment Review of Relevant I have reviewed the following items dalia (where applicable) has been applied. Medications: Current Medications Medications (Trade) Dose Ordered Sig/Chirag Route PRN Reason Start Time Stop Time Status Last Admin Dose Admin Info (Tpn Per Pharmacy) 1 each PRN DAILY PRN MC SEE COMMENTS 02/21/22 12:15 02/21/22 14:18 Sodium Chloride 90 meq/Potassium Chloride 50 meq/ Potassium Phosphate 13.6 mmol/Magnesium Sulfate 2.5 meq/ Multivitamins 10 ml/Zinc/Copper/ Manganese/ Selenium 1 ml/ Total Parenteral Nutrition/Amino Acids/Dextrose/ Fat Emulsion Intravenous 1,512 ml @ 63 mls/hr TPN CONT IV 02/21/22 22:00 02/22/22 21:59 02/21/22 21:27 Justifications for Admission Other Justification AJAY HOFFMAN MD Feb 22, 2022 10:52
[2022-02-22 11:00] VITALS: BP 146/96
[2022-02-22] MEDS: TPN PER PHARMACY MC PRN (12:32)
--- NOTE | 2022-02-22 12:34 | NUR ---
Pharmacy TPN Dosing Note S: BRISSA PENA is a 57 year old M Currently receiving TPN started 02/21/22 B:Pertinent PMH: pancreatitis Height: 5 feet, 6 inches Weight: 117.9 kg Current diet: CLD LABS: Sodium: 137 Potassium: 4.3 Chloride: 100 Calcium: 9.1 Corrected Calcium: 10.14 Magnesium: 2.2 CO2: 32 SCr: 0.8 Glucose: 135 Albumin: 2.7 AST: 35 ALT: 40 TPN FORMULA: TPN TYPE: AMINO ACIDS: 75 gm DEXTROSE: 235 gm LIPIDS: 30 gm SODIUM CHLORIDE: 90 mEq POTASSIUM CHLORIDE: 30 mEq POTASSIUM PHOSPHATE: 15 mmol MAGNESIUM: 2.5 mEq MULTIPLE VITAMIN: 10 ml TRACE ELEMENTS: 1ml ml(s) TPN PLAN: Macros adjusted per dietican rec's KCl decreased and Kphos increased slightly per labs R: Change TPN per plans and ordered formula Will monitor electrolytes, glucose, and tolerance to TPN. Cony Merritt [facility], 02/22/22 [id number]
--- NOTE | 2022-02-22 12:40 | PDOC ---
Date of Service: DATE: 02/22/22 TIME: 12:36 Subjective: Subjective: Pain much better, not needing pain meds. Stool x 2. Not hungry so not eating (clear liquids) much. On TPN. Objective: Objective: D/w Dr. Castle, reviewed surgery notes. Vital Signs: Vital Signs Date Time Temp Pulse Resp B/P (MAP) Pulse Ox O2 Delivery O2 Flow Rate FiO2 02/22/22 11:00 98.2 82 18 146/96 (113) 98 Room Air 98.2 02/21/22 11:00 2.0 Labs: Laboratory Tests Test 02/22/22 05:40 Sodium Level 137 mmol/L Potassium Level 4.3 mmol/L Chloride Level 100 mmol/L Carbon Dioxide Level 32 mmol/L Anion Gap 5 Blood Urea Nitrogen 11 mg/dL Creatinine 0.8 mg/dL Estimated GFR (Cockcroft-Gault) 120.1 Glucose Level 135 mg/dL Calcium Level 9.1 mg/dL Phosphorus Level 3.1 mg/dL Magnesium Level 2.2 mg/dL Triglycerides Level 133 mg/dL GRAM STAIN-AER DORINDA Final PMNS (WBCS): MANY SQUAMOUS EPI CELL: NOT APPLICABLE NO ORGANISMS SEEN NO ORGANISMS SEEN CULTURE ANAEROBIC/AEROBIC Preliminary MANY GRAM NEGATIVE RODS on 02/22/22 at 0902. FINAL ID= [email or web address] VARIICOLA Testing performed by [address] [id number] consulting project director: Ariana Houston MD Organism 1 KLEBSIELLA VARIICOLA PE: GEN: NAD LUNGS: CTAB HEART: RRR ABD: non-tender NEURO/PSYCH: A & O 3 A/P: Upper abdominal pain - resolving Pancreatic cyst s/p aspirate 02/19/22 - culture noted, ID following -- Previously discussed elective distal pancreatectomy and splenectomy w/ Dr. Teixeira. Pain improved and stooling, not much appetite - on TPN, probably to continue on DC until surgery follow-up. Justicifation of Admission Dx: Justifications for Admission: Justification of Admission Dx: Yes REMBERTO CARDENAS Feb 22, 2022 12:40
--- NOTE | 2022-02-22 12:49 | PDOC ---
SURGICAL PROGRESS NOTE DATE: 02/22/22 TIME: 12:48 Subjective feels good about plan has appt set up already to see Dr Teixeira Vital Signs Vital Signs Date Time Temp Pulse Resp B/P (MAP) Pulse Ox O2 Delivery O2 Flow Rate FiO2 02/22/22 11:00 98.2 82 18 146/96 (113) 98 Room Air 98.2 02/21/22 11:00 2.0 I&O Intake and Output 02/22/22 07:00 Intake Total 540 ml Output Total 600 ml Balance -60 ml Intake Oral 540 ml Output Urine Total 600 ml # Voids 5 General: Alert, Oriented X3, Cooperative Abdomen: Soft Labs Laboratory Tests Test 02/21/22 09:28 02/22/22 05:40 White Blood Count 11.3 x10^3/uL (4.0-11.0) Red Blood Count 4.48 x10^6/uL (4.30-5.70) Hemoglobin 11.6 g/dL (13.0-17.5) Hematocrit 37.0 % (39.0-53.0) Mean Corpuscular Volume 83 fL (79-100) Mean Corpuscular Hemoglobin 26 pg (25-35) Mean Corpuscular Hemoglobin Concent 32 g/dL (31-37) Red Cell Distribution Width 14.9 % (11.5-14.5) Platelet Count 360 x10^3/uL (140-400) Neutrophils (%) (Auto) 75 % (31-73) Lymphocytes (%) (Auto) 16 % (24-48) Monocytes (%) (Auto) 7 % (0-9) Eosinophils (%) (Auto) 2 % (0-3) Basophils (%) (Auto) 0 % (0-3) Neutrophils # (Auto) 8.5 x10^3/uL (1.8-7.7) Lymphocytes # (Auto) 1.8 x10^3/uL (1.0-4.8) Monocytes # (Auto) 0.7 x10^3/uL (0.0-1.1) Eosinophils # (Auto) 0.2 x10^3/uL (0.0-0.7) Basophils # (Auto) 0.0 x10^3/uL (0.0-0.2) Sodium Level 135 mmol/L (136-145) 137 mmol/L (136-145) Potassium Level 3.6 mmol/L (3.5-5.1) 4.3 mmol/L (3.5-5.1) Chloride Level 96 mmol/L (98-107) 100 mmol/L (98-107) Carbon Dioxide Level 33 mmol/L (21-32) 32 mmol/L (21-32) Anion Gap 6 (6-14) 5 (6-14) Blood Urea Nitrogen 15 mg/dL (8-26) 11 mg/dL (8-26) Creatinine 0.9 mg/dL (0.7-1.3) 0.8 mg/dL (0.7-1.3) Estimated GFR (Cockcroft-Gault) 104.9 120.1 BUN/Creatinine Ratio 17 (6-20) Glucose Level 186 mg/dL (70-99) 135 mg/dL (70-99) Calcium Level 9.4 mg/dL (8.5-10.1) 9.1 mg/dL (8.5-10.1) Phosphorus Level 4.4 mg/dL (2.6-4.7) 3.1 mg/dL (2.6-4.7) Magnesium Level 2.6 mg/dL (1.8-2.4) 2.2 mg/dL (1.8-2.4) Total Bilirubin 0.4 mg/dL (0.2-1.0) Aspartate Amino Transf (AST/SGOT) 35 U/L (15-37) Alanine Aminotransferase (ALT/SGPT) 40 U/L (16-63) Alkaline Phosphatase 77 U/L (46-116) Total Protein 8.1 g/dL (6.4-8.2) Albumin 2.7 g/dL (3.4-5.0) Albumin/Globulin Ratio 0.5 (1.0-1.7) Triglycerides Level 133 mg/dL (0-150) Laboratory Tests Test 02/22/22 05:40 Sodium Level 137 mmol/L (136-145) Potassium Level 4.3 mmol/L (3.5-5.1) Chloride Level 100 mmol/L (98-107) Carbon Dioxide Level 32 mmol/L (21-32) Anion Gap 5 (6-14) Blood Urea Nitrogen 11 mg/dL (8-26) Creatinine 0.8 mg/dL (0.7-1.3) Estimated GFR (Cockcroft-Gault) 120.1 Glucose Level 135 mg/dL (70-99) Calcium Level 9.1 mg/dL (8.5-10.1) Phosphorus Level 3.1 mg/dL (2.6-4.7) Magnesium Level 2.2 mg/dL (1.8-2.4) Triglycerides Level 133 mg/dL (0-150) Problem List Problems Medical Problems: (1) Failure of outpatient treatment Status: Acute (2) Intractable abdominal pain Status: Acute (3) Ketonuria Status: Acute (4) Leukocytosis Status: Acute Assessment/Plan d/w IPC, dc planning for home with TPN FU in clinic with Dr Teixeira no surgical plans inpt, will sign off, please call with questions Justicifation of Admission Dx: Justifications for Admission: Justification of Admission Dx: Yes GAURAV SELBY APRN Feb 22, 2022 12:49
[2022-02-22 15:00] VITALS: BP 154/90
--- NOTE | 2022-02-22 15:47 | PDOC ---
Infectious Disease Note Subjective Subjective Patient feels better Abdominal pain is under control currently Fever pattern improved On room air ROS ROS no n/v/d/ Vital Sign Vital Signs Vital Signs Date Time Temp Pulse Resp B/P (MAP) Pulse Ox O2 Delivery O2 Flow Rate FiO2 02/22/22 15:00 98.4 87 16 154/90 (111) 98 Room Air 98.4 02/21/22 11:00 2.0 Physical Exam PHYSICAL EXAM GENERAL: Well-developed, well-nourished, alert, oriented x3 male, lying in bed comfortably, in no acute distress. HEENT: Normocephalic, atraumatic. Anicteric. No thrush. Oral mucosa moist. NECK: Supple, no JVD. LUNGS: Clear bilaterally. No wheezing. HEART: S1, S2. No murmurs. ABDOMEN: Mildly distended, mild diffuse tenderness present, bowel sounds present. No rebound, no guarding. EXTREMITIES: No edema, no cyanosis. DERMATOLOGIC: Warm, dry, no generalized rash. NEUROLOGIC: Alert, oriented x3, grossly nonfocal. PSYCHIATRIC: Calm and cooperative. Labs Lab Laboratory Tests Test 02/22/22 05:40 Sodium Level 137 mmol/L (136-145) Potassium Level 4.3 mmol/L (3.5-5.1) Chloride Level 100 mmol/L (98-107) Carbon Dioxide Level 32 mmol/L (21-32) Anion Gap 5 (6-14) Blood Urea Nitrogen 11 mg/dL (8-26) Creatinine 0.8 mg/dL (0.7-1.3) Estimated GFR (Cockcroft-Gault) 120.1 Glucose Level 135 mg/dL (70-99) Calcium Level 9.1 mg/dL (8.5-10.1) Phosphorus Level 3.1 mg/dL (2.6-4.7) Magnesium Level 2.2 mg/dL (1.8-2.4) Triglycerides Level 133 mg/dL (0-150) Micro Microbiology 02/19/22 Gram Stain - Final, Resulted 02/19/22 Aerobic and Anaerobic Culture - Preliminary, Resulted Klebsiella Variicola 02/19/22 Blood Culture - Preliminary, Resulted NO GROWTH AFTER 3 DAYS 02/15/22 Urine Culture - Final, Complete Objective Assessment 1. Fever.pattern improving 2. Leukocytosis. Improving 3. Intractable abdominal pain, 4. Pancreatitis with fluid collection, partial splenic vein thrombosis. Status post IR drainage [id number], 100% PMNs Cultures negative so far 4. Shortness of breath, likely reactive from pancreatitis. 5. Constipation. Plan Plan of Care Cont meropenem was on zosyn. Status post IR drainage Attempts were made for transfer to or [facility] If the patient has a temperature of greater than 101, please obtain blood cultures. Started on TPN Monitor labs and cultures. Cont supportive care MANISH GORDILLO MD Feb 22, 2022 15:47
[2022-02-22] MEDS: ACETAMINOPHEN 325 MG TABLET. PO PRN (18:26)
[2022-02-22 19:20] VITALS: BP 135/88
[2022-02-22] MEDS ORDERED: AMINO ACID IV SCH (22:00)
[2022-02-22] MEDS ORDERED: TOTAL PARENTERAL NUTRITION IV SCH (22:00)
[2022-02-22] MEDS ORDERED: DEXTROSE 70% IV SCH (22:00)
[2022-02-22] MEDS ORDERED: [UNRECOGNIZED DRUG - OTHER] IV SCH (22:00)
[2022-02-22 23:07] VITALS: BP 134/86
[2022-02-23] MEDS: MEROPENEM 500 MG in IV NORMAL SALINE 50ML 50 ML IV SCH ×5 (00:06→23:50)
[2022-02-23 03:00] VITALS: BP 133/82
[2022-02-23 05:54] VITALS: BP 149/89
[2022-02-23] MEDS: HEPARIN for SUB-Q USE 5,000 UNIT/ML VIAL. SQ SCH ×3 (06:00→22:00)
[2022-02-23 06:41] LABS: CALCIUM 9.2 mg/dL (8.5-10.1); CREATININE 0.8 mg/dL (0.7-1.3); GFR 120.1; MAGNESIUM 2.3 mg/dL (1.8-2.4); PHOSPHORUS 2.8 mg/dL (2.6-4.7); POTASSIUM 4.7 mmol/L (3.5-5.1)
[2022-02-23] MEDS: PANTOPRAZOLE IV PUSH 40 MG VIAL. IVP SCH (09:00)
[2022-02-23] MEDS: SENNOSIDES/DOCUSATE 8.6/50MG TABLET. PO SCH ×2 (09:00→21:53)
[2022-02-23] MEDS: ASPIRIN CHEWABLE 81 MG TABLET. PO SCH (09:00)
[2022-02-23] MEDS: FINASTERIDE 5 MG TABLET. PO SCH (09:00)
[2022-02-23 11:00] VITALS: BP 147/100
[2022-02-23] MEDS: TPN PER PHARMACY MC PRN (11:08)
--- NOTE | 2022-02-23 11:16 | NUR ---
Pharmacy TPN Dosing Note S: BRISSA PENA is a 57 year old M Currently receiving TPN started 02/21/22 B:Pertinent PMH: pancreatitis Height: 5 feet, 6 inches Weight: 117.9 kg Current diet: CLD LABS: Sodium: 138 Potassium: 4.7 Chloride: 102 Calcium: 9.2 Corrected Calcium: 10.24 Magnesium: 2.3 CO2: 28 SCr: 0.8 Glucose: 144 Albumin: 2.7 AST: 35 ALT: 40 TPN FORMULA: TPN TYPE: AMINO ACIDS: 75 gm DEXTROSE: 235 gm LIPIDS: 30 gm SODIUM CHLORIDE: 90 mEq SODIUM PHOSPHATE: 10 mmol POTASSIUM PHOSPHATE: 10 mmol MAGNESIUM: 2.5 mEq MULTIPLE VITAMIN: 10 ml TRACE ELEMENTS: 1ml ml(s) TPN PLAN: KCl removed per trend in potassium. Phos increased and split over potassium and sodium R: Change TPN per plan and ordered formula Will monitor electrolytes, glucose, and tolerance to TPN. Cony Merritt [facility], 02/23/22 1115
[2022-02-23] MEDS: ACETAMINOPHEN 325 MG TABLET. PO PRN ×2 (12:26→21:43)
--- NOTE | 2022-02-23 14:16 | PDOC ---
Infectious Disease Note Subjective Subjective Patient feels better Abdominal pain is under control currently Fever pattern improved On room air ROS ROS No nausea vomiting diarrhea Vital Sign Vital Signs Vital Signs Date Time Temp Pulse Resp B/P (MAP) Pulse Ox O2 Delivery O2 Flow Rate FiO2 02/23/22 11:00 98.0 98 20 147/100 (116) 95 Room Air 98.0 02/23/22 08:15 2.0 Physical Exam PHYSICAL EXAM GENERAL: Well-developed, well-nourished, alert, oriented x3 male, lying in bed comfortably, in no acute distress. HEENT: Normocephalic, atraumatic. Anicteric. No thrush. Oral mucosa moist. NECK: Supple, no JVD. LUNGS: Clear bilaterally. No wheezing. HEART: S1, S2. No murmurs. ABDOMEN: Mildly distended, mild diffuse tenderness present, bowel sounds present. No rebound, no guarding. EXTREMITIES: No edema, no cyanosis. DERMATOLOGIC: Warm, dry, no generalized rash. NEUROLOGIC: Alert, oriented x3, grossly nonfocal. PSYCHIATRIC: Calm and cooperative. Labs Lab Laboratory Tests Test 02/23/22 06:05 Sodium Level 138 mmol/L (136-145) Potassium Level 4.7 mmol/L (3.5-5.1) Chloride Level 102 mmol/L (98-107) Carbon Dioxide Level 28 mmol/L (21-32) Anion Gap 8 (6-14) Blood Urea Nitrogen 10 mg/dL (8-26) Creatinine 0.8 mg/dL (0.7-1.3) Estimated GFR (Cockcroft-Gault) 120.1 Glucose Level 144 mg/dL (70-99) Calcium Level 9.2 mg/dL (8.5-10.1) Phosphorus Level 2.8 mg/dL (2.6-4.7) Magnesium Level 2.3 mg/dL (1.8-2.4) Micro Microbiology 02/19/22 Gram Stain - Final, Resulted 02/19/22 Aerobic and Anaerobic Culture - Preliminary, Resulted Klebsiella Variicola 02/19/22 Blood Culture - Preliminary, Resulted NO GROWTH AFTER 3 DAYS 02/15/22 Urine Culture - Final, Complete Objective Assessment 1. Fever.pattern improving 2. Leukocytosis. Improving 3. Intractable abdominal pain, 4. Pancreatitis with fluid collection, partial splenic vein thrombosis. Status post IR drainage [id number], 100% PMNs Cultures negative so far 4. Shortness of breath, likely reactive from pancreatitis. 5. Constipation. Plan Plan of Care Cont meropenem Status post IR drainage Attempts were made for transfer to or [facility] If the patient has a temperature of greater than 101, please obtain blood cultures. Started on TPN Monitor labs and cultures. Cont supportive care MANISH GORDILLO MD Feb 23, 2022 14:16
--- NOTE | 2022-02-23 14:52 | PDOC ---
[employer] PROGRESS NOTE Date of Service DOS: DATE: 02/23/22 TIME: 14:48 Chief Complaint Chief Complaint Assessment/Plan Intractable abdominal pain - Periumbilical abdominal pain, pancreatitis with a pancreatic cyst Constipation Sepsis Plan prn IV pain control. Consult interventional radiology to see if any drainable fluid collection GI consult Home meds as indicated DVT prophylaxis Laxatives History of Present Illness History of Present Illness Mr Doyle is a 57 yo male who presents with several days of periumbilical abd ominal pain radiating through to the back. Associated with nausea but no vomiting. 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 No other masses appreciated. Curiously, he describes a history of back in 2012 where he had a similar cyst that was asymptomatic but found incidentally on imaging and was drained with what sounds like endoscopic ultrasound. He had no further symptoms or problems until now. He does not have any risk factors for pancreatitis. He does not have a history of gallstones or biliary disease and does not drink alcohol. He is not taking any medicines which are associated with pancreatitis. Normally he denies any significant chronic GI complaints such as pain, nausea or indigestion. 02/16 patient evaluated examined at bedside. Complaining of ongoing abdominal pain. However much more controlled. IR consult pending. Informed patient may not be able to be seen by them until Friday as not an emergency and he understands this. Continue current otherwise. 02/17: Patient evaluated examined at bedside. Reported pain about the same well- controlled pain meds but will wear off in a fair bit of pain. GI consulted to today much appreciate the very thorough assessment. IR consult patient agreeable to drainage if deemed good option. 02/18: Febrile 102.1 F overnight. Still with significant pain 9 out of 10 with deep inspiration in his left upper quadrant and into his back and left flank. Tolerating Zosyn IV. CT abdomen pelvis upon my interpretation fluid collection in the tail of the pancreas 7.3 x 6.3 x 6.8 cm pancreatic inflammation. Multiple renal cysts, prostatomegaly. Splenic vein branch appeared ccluded on CT but ultrasound showed Doppler flow. Discussed with GI who discussed with interventional radiology EUS would be appropriate we do not have this ability at our facility and patient wishes for referral to [facility] or [facility] 02/19: Febrile to 100.7 F overnight. Feels like Percocet is covering his pain a little bit but fentanyl is wearing off still with splinting on deep inspiration. Will change IV medications to Dilaudid every 3 hours as needed and consult infectious diseases, changed to Carbapenem. 02/20: T-max 100 F last 24 hours. N.p.o. for consideration of cyst drainage [facility] interventional radiology today WBC still elevated at 14.7. 02/21: Afebrile overnight. Had significantly more pain after is percutaneous drain by IR increase to 2 mg of Dilaudid. Still has very little appetite only thing is asking for his coffee PICC and TPN ordered we will consult general surgery. His [facility] records arrived from 2014 when he previously had EUS. 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 At the time ampulla and CBD appeared normal with no evidence of dilation. CEA at that time was 17.9 he was recommended to follow-up with GI and surgery in clinic 02/22: PICC in place now on TPN. Pain is improved his appetite has not. Had consultation with general surgery for consideration of distal pancreatectomy cholecystectomy and splenectomy which he will look into outpatient. Pending cultures from pancreatic cyst aspiration currently. Plan will be to tailor antibiotics toward this and go home on TPN until follow-up with general surgery in 2 weeks and will need to await final culture results prior to discharge planning 02/23: Afebrile overnight. On TPN. Pancreatic cyst aspiration culture growing Klebsiella Variicola, largely pansensitive. Vitals/I&O Vitals/I&O: Vital Signs Date Time Temp Pulse Resp B/P (MAP) Pulse Ox O2 Delivery O2 Flow Rate FiO2 02/23/22 11:00 98.0 98 20 147/100 (116) 95 Room Air 98.0 02/23/22 08:15 2.0 I & O 0 02/22/22 02/22/22 02/23/22 15:00 23:00 07:00 Intake Total 620 ml Balance 620 ml Physical Exam Physical Exam: GENERAL: Well-developed, well-nourished, alert, oriented x3 male, lying in bed comfortably, in no acute distress. HEENT: Normocephalic, atraumatic. Anicteric. No thrush. Oral mucosa moist. NECK: Supple, no JVD. LUNGS: Clear bilaterally. No wheezing. HEART: S1, S2. No murmurs. ABDOMEN: Mildly distended, mild diffuse tenderness present, bowel sounds present. No rebound, no guarding. EXTREMITIES: No edema, no cyanosis. DERMATOLOGIC: Warm, dry, no generalized rash. NEUROLOGIC: Alert, oriented x3, grossly nonfocal. PSYCHIATRIC: Calm and cooperative. General: Alert, Oriented X3, Cooperative Heart: Regular rate, Normal S1, Normal S2 Lungs: Clear Abdomen: Soft Extremities: No clubbing, No cyanosis Skin: No rashes, No breakdown Labs Labs: Laboratory Tests Test 02/23/22 06:05 Sodium Level 138 mmol/L (136-145) Potassium Level 4.7 mmol/L (3.5-5.1) Chloride Level 102 mmol/L (98-107) Carbon Dioxide Level 28 mmol/L (21-32) Anion Gap 8 (6-14) Blood Urea Nitrogen 10 mg/dL (8-26) Creatinine 0.8 mg/dL (0.7-1.3) Estimated GFR (Cockcroft-Gault) 120.1 Glucose Level 144 mg/dL (70-99) Calcium Level 9.2 mg/dL (8.5-10.1) Phosphorus Level 2.8 mg/dL (2.6-4.7) Magnesium Level 2.3 mg/dL (1.8-2.4) Assessment and Plan Assessmemt and Plan Problems Medical Problems: (1) Failure of outpatient treatment Status: Acute (2) Intractable abdominal pain Status: Acute (3) Ketonuria Status: Acute (4) Leukocytosis Status: Acute Comment Review of Relevant I have reviewed the following items dalia (where applicable) has been applied. Medications: Current Medications Medications (Trade) Dose Ordered Sig/Chirag Route PRN Reason Start Time Stop Time Status Last Admin Dose Admin Sodium Chloride 90 meq/Potassium Chloride 30 meq/ Potassium Phosphate 15 mmol/ Magnesium Sulfate 2.5 meq/ Multivitamins 10 ml/Zinc/Copper/ Manganese/ Selenium 1 ml/ Total Parenteral Nutrition/Amino Acids/Dextrose/ Fat Emulsion Intravenous 1,512 ml @ 63 mls/hr TPN CONT IV 02/22/22 22:00 02/23/22 21:59 02/22/22 22:05 Justifications for Admission Other Justification JAIRO VÁSQUEZ MD Feb 23, 2022 14:52
[2022-02-23 15:00] VITALS: BP 154/97
--- NOTE | 2022-02-23 15:54 | PDOC ---
[employer] PROGRESS NOTE Date of Service DOS: DATE: 02/23/22 TIME: 15:53 Chief Complaint Chief Complaint Assessment/Plan Intractable abdominal pain - Periumbilical abdominal pain, pancreatitis with a pancreatic cyst Constipation Sepsis Plan prn IV pain control. Consult interventional radiology to see if any drainable fluid collection GI consult Home meds as indicated DVT prophylaxis Laxatives History of Present Illness History of Present Illness Mr Doyle is a 57 yo male who presents with several days of periumbilical abd ominal pain radiating through to the back. Associated with nausea but no vomiting. 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 No other masses appreciated. Curiously, he describes a history of back in 2012 where he had a similar cyst that was asymptomatic but found incidentally on imaging and was drained with what sounds like endoscopic ultrasound. He had no further symptoms or problems until now. He does not have any risk factors for pancreatitis. He does not have a history of gallstones or biliary disease and does not drink alcohol. He is not taking any medicines which are associated with pancreatitis. Normally he denies any significant chronic GI complaints such as pain, nausea or indigestion. 02/16 patient evaluated examined at bedside. Complaining of ongoing abdominal pain. However much more controlled. IR consult pending. Informed patient may not be able to be seen by them until Friday as not an emergency and he understands this. Continue current otherwise. 02/17: Patient evaluated examined at bedside. Reported pain about the same well- controlled pain meds but will wear off in a fair bit of pain. GI consulted to today much appreciate the very thorough assessment. IR consult patient agreeable to drainage if deemed good option. 02/18: Febrile 102.1 F overnight. Still with significant pain 9 out of 10 with deep inspiration in his left upper quadrant and into his back and left flank. Tolerating Zosyn IV. CT abdomen pelvis upon my interpretation fluid collection in the tail of the pancreas 7.3 x 6.3 x 6.8 cm pancreatic inflammation. Multiple renal cysts, prostatomegaly. Splenic vein branch appeared ccluded on CT but ultrasound showed Doppler flow. Discussed with GI who discussed with interventional radiology EUS would be appropriate we do not have this ability at our facility and patient wishes for referral to [facility] or [facility] 02/19: Febrile to 100.7 F overnight. Feels like Percocet is covering his pain a little bit but fentanyl is wearing off still with splinting on deep inspiration. Will change IV medications to Dilaudid every 3 hours as needed and consult infectious diseases, changed to Carbapenem. 02/20: T-max 100 F last 24 hours. N.p.o. for consideration of cyst drainage [facility] interventional radiology today WBC still elevated at 14.7. 02/21: Afebrile overnight. Had significantly more pain after is percutaneous drain by IR increase to 2 mg of Dilaudid. Still has very little appetite only thing is asking for his coffee PICC and TPN ordered we will consult general surgery. His [facility] records arrived from 2014 when he previously had EUS. 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 At the time ampulla and CBD appeared normal with no evidence of dilation. CEA at that time was 17.9 he was recommended to follow-up with GI and surgery in clinic 02/22: PICC in place now on TPN. Pain is improved his appetite has not. Had consultation with general surgery for consideration of distal pancreatectomy cholecystectomy and splenectomy which he will look into outpatient. Pending cultures from pancreatic cyst aspiration currently. Plan will be to tailor antibiotics toward this and go home on TPN until follow-up with general surgery in 2 weeks and will need to await final culture results prior to discharge planning 02/23: Afebrile overnight. On TPN. Pancreatic cyst aspiration culture growing Klebsiella Variicola, largely pansensitive. Continue meropenem for now, per ID. Patient does confirm that he has an appointment with Dr. Chong for outpatient cholecystectomy and pancreatic resection. He remains on TPN, with no appetite. Vitals/I&O Vitals/I&O: Vital Signs Date Time Temp Pulse Resp B/P (MAP) Pulse Ox O2 Delivery O2 Flow Rate FiO2 02/23/22 11:00 98.0 98 20 147/100 (116) 95 Room Air 98.0 02/23/22 08:15 2.0 I & O 02/22/22 02/22/22 02/23/22 15:00 23:00 07:00 Intake Total 620 ml Balance 620 ml Physical Exam Physical Exam: GENERAL: Well-developed, well-nourished, alert, oriented x3 male, lying in bed comfortably, in no acute distress. HEENT: Normocephalic, atraumatic. Anicteric. No thrush. Oral mucosa moist. NECK: Supple, no JVD. LUNGS: Clear bilaterally. No wheezing. HEART: S1, S2. No murmurs. ABDOMEN: Mildly distended, mild diffuse tenderness present, bowel sounds present. No rebound, no guarding. EXTREMITIES: No edema, no cyanosis. DERMATOLOGIC: Warm, dry, no generalized rash. NEUROLOGIC: Alert, oriented x3, grossly nonfocal. PSYCHIATRIC: Calm and cooperative. General: Alert, Oriented X3, Cooperative Heart: Regular rate, Normal S1, Normal S2 Lungs: Clear Abdomen: Soft Extremities: No clubbing, No cyanosis Skin: No rashes, No breakdown Labs Labs: Laboratory Tests Test 02/23/22 06:05 Sodium Level 138 mmol/L (136-145) Potassium Level 4.7 mmol/L (3.5-5.1) Chloride Level 102 mmol/L (98-107) Carbon Dioxide Level 28 mmol/L (21-32) Anion Gap 8 (6-14) Blood Urea Nitrogen 10 mg/dL (8-26) Creatinine 0.8 mg/dL (0.7-1.3) Estimated GFR (Cockcroft-Gault) 120.1 Glucose Level 144 mg/dL (70-99) Calcium Level 9.2 mg/dL (8.5-10.1) Phosphorus Level 2.8 mg/dL (2.6-4.7) Magnesium Level 2.3 mg/dL (1.8-2.4) Assessment and Plan Assessmemt and Plan Problems Medical Problems: (1) Failure of outpatient treatment Status: Acute (2) Intractable abdominal pain Status: Acute (3) Ketonuria Status: Acute (4) Leukocytosis Status: Acute Comment Review of Relevant I have reviewed the following items dalia (where applicable) has been applied. Medications: Current Medications Medications (Trade) Dose Ordered Sig/Chirag Route PRN Reason Start Time Stop Time Status Last Admin Dose Admin Sodium Chloride 90 meq/Potassium Chloride 30 meq/ Potassium Phosphate 15 mmol/ Magnesium Sulfate 2.5 meq/ Multivitamins 10 ml/Zinc/Copper/ Manganese/ Selenium 1 ml/ Total Parenteral Nutrition/Amino Acids/Dextrose/ Fat Emulsion Intravenous 1,512 ml @ 63 mls/hr TPN CONT IV 02/22/22 22:00 02/23/22 21:59 02/22/22 22:05 Justifications for Admission Other Justification JAIRO VÁSQUEZ MD Feb 23, 2022 15:54
[2022-02-23 19:00] VITALS: BP 169/100
[2022-02-23] MEDS: LOSARTAN POTASSIUM 50 MG TABLET. PO SCH (21:41)
[2022-02-23] MEDS ORDERED: [UNRECOGNIZED DRUG - OTHER] IV SCH (22:00)
[2022-02-23] MEDS ORDERED: TOTAL PARENTERAL NUTRITION IV SCH (22:00)
[2022-02-23] MEDS ORDERED: AMINO ACID IV SCH (22:00)
[2022-02-23] MEDS ORDERED: DEXTROSE 70% IV SCH (22:00)
[2022-02-23 23:34] VITALS: BP 152/94
[2022-02-23] MEDS: oxyCODONE/APAP 5/325 1 TAB TABLET PO PRN (23:46)
[2022-02-24] VITALS (7 sets, daily range): BP systolic 90–158; BP diastolic 78–91
[2022-02-24] MEDS: HYDROmorphone 2 MG/ML INJ. IVP PRN (01:09)
[2022-02-24] MEDS: HEPARIN for SUB-Q USE 5,000 UNIT/ML VIAL. SQ SCH ×3 (05:30→21:09)
[2022-02-24] MEDS: MEROPENEM 500 MG in IV NORMAL SALINE 50ML 50 ML IV SCH ×4 (05:52→23:39)
[2022-02-24 06:15] LABS: BASO # 0.1 x10^3/uL (0.0-0.2); BASO % 1 % (0-3); EOS # 0.2 x10^3/uL (0.0-0.7); EOS % 2 % (0-3); HEMATOCRIT 35.2 % (39.0-53.0); HEMOGLOBIN 11.5 g/dL (13.0-17.5); LYMPH # 1.4 x10^3/uL (1.0-4.8); LYMPH % 14 % (24-48); MEAN CORPUSCULAR HEMOGLOBIN 27 pg (25-35); MEAN CORPUSCULAR HGB CONC 33 g/dL (31-37); MEAN CORPUSCULAR VOLUME 81 fL (79-100); MONO # 0.6 x10^3/uL (0.0-1.1); MONO % 6 % (0-9); NEUT # 7.9 x10^3/uL (1.8-7.7); NEUT % 78 % (31-73); PLATELET COUNT 422 x10^3/uL (140-400); RED BLOOD COUNT 4.35 x10^6/uL (4.30-5.70); RED CELL DISTRIBUTION WIDTH 14.8 % (11.5-14.5); WHITE BLOOD COUNT 10.2 x10^3/uL (4.0-11.0)
[2022-02-24 06:30] LABS: CALCIUM 9.1 mg/dL (8.5-10.1); CREATININE 0.8 mg/dL (0.7-1.3); GFR 120.1; MAGNESIUM 2.4 mg/dL (1.8-2.4); PHOSPHORUS 4.7 mg/dL (2.6-4.7); POTASSIUM 4.5 mmol/L (3.5-5.1)
[2022-02-24] MEDS: ACETAMINOPHEN 325 MG TABLET. PO PRN (08:33)
[2022-02-24] MEDS: FINASTERIDE 5 MG TABLET. PO SCH (08:34)
[2022-02-24] MEDS: PANTOPRAZOLE IV PUSH 40 MG VIAL. IVP SCH (08:34)
[2022-02-24] MEDS: SENNOSIDES/DOCUSATE 8.6/50MG TABLET. PO SCH ×2 (08:34→21:04)
[2022-02-24] MEDS: ASPIRIN CHEWABLE 81 MG TABLET. PO SCH (08:34)
[2022-02-24] MEDS: TPN PER PHARMACY MC PRN (10:55)
--- NOTE | 2022-02-24 10:56 | NUR ---
Pharmacy TPN Dosing Note S: BRISSA PENA is a 57 year old M Currently receiving TPN started 02/21/22 B:Pertinent PMH: pancreatitis Height: 5 feet, 6 inches Weight: 118 kg Current diet: CLD LABS: Sodium: 138 Potassium: 4.5 Chloride: 103 Calcium: 9.1 Corrected Calcium: 10.14 Magnesium: 2.4 CO2: 28 SCr: 0.8 Glucose: 139 Albumin: 2.7 AST: 35 ALT: 40 TPN FORMULA: TPN TYPE: AMINO ACIDS: 75 gm DEXTROSE: 235 gm LIPIDS: 30 gm SODIUM CHLORIDE: 90 mEq POTASSIUM PHOSPHATE: 10 mmol MAGNESIUM: 2.5 mEq CALCIUM: 0 mEq MULTIPLE VITAMIN: 10 ml TRACE ELEMENTS: 1ml ml(s) TPN PLAN: Sodium phos removed per rapid rise in lab. BMP, Mag, Phos ordered for tomorrow R: Change TPN per plan and ordered formula Will monitor electrolytes, glucose, and tolerance to TPN. Cony Merritt Wendie, 02/24/22 [id number]
--- NOTE | 2022-02-24 11:25 | PDOC ---
Infectious Disease Note Subjective Subjective Patient is sleeping ROS ROS No nausea vomiting diarrhea or belly pain Vital Sign Vital Signs Vital Signs Date Time Temp Pulse Resp B/P (MAP) Pulse Ox O2 Delivery O2 Flow Rate FiO2 02/24/22 08:00 Room Air 2.0 02/24/22 06:30 98.7 89 20 113/79 (90) 96 98.7 Physical Exam PHYSICAL EXAM GENERAL: Well-developed, well-nourished, alert, oriented x3 male, lying in bed comfortably, in no acute distress. HEENT: Normocephalic, atraumatic. Anicteric. No thrush. Oral mucosa moist. NECK: Supple, no JVD. LUNGS: Clear bilaterally. No wheezing. HEART: S1, S2. No murmurs. ABDOMEN: Mildly distended, mild diffuse tenderness present, bowel sounds present. No rebound, no guarding. EXTREMITIES: No edema, no cyanosis. DERMATOLOGIC: Warm, dry, no generalized rash. NEUROLOGIC: Alert, oriented x3, grossly nonfocal. PSYCHIATRIC: Calm and cooperative. Labs Lab Laboratory Tests Test 02/24/22 06:00 White Blood Count 10.2 x10^3/uL (4.0-11.0) Red Blood Count 4.35 x10^6/uL (4.30-5.70) Hemoglobin 11.5 g/dL (13.0-17.5) Hematocrit 35.2 % (39.0-53.0) Mean Corpuscular Volume 81 fL (79-100) Mean Corpuscular Hemoglobin 27 pg (25-35) Mean Corpuscular Hemoglobin Concent 33 g/dL (31-37) Red Cell Distribution Width 14.8 % (11.5-14.5) Platelet Count 422 x10^3/uL (140-400) Neutrophils (%) (Auto) 78 % (31-73) Lymphocytes (%) (Auto) 14 % (24-48) Monocytes (%) (Auto) 6 % (0-9) Eosinophils (%) (Auto) 2 % (0-3) Basophils (%) (Auto) 1 % (0-3) Neutrophils # (Auto) 7.9 x10^3/uL (1.8-7.7) Lymphocytes # (Auto) 1.4 x10^3/uL (1.0-4.8) Monocytes # (Auto) 0.6 x10^3/uL (0.0-1.1) Eosinophils # (Auto) 0.2 x10^3/uL (0.0-0.7) Basophils # (Auto) 0.1 x10^3/uL (0.0-0.2) Sodium Level 138 mmol/L (136-145) Potassium Level 4.5 mmol/L (3.5-5.1) Chloride Level 103 mmol/L (98-107) Carbon Dioxide Level 28 mmol/L (21-32) Anion Gap 7 (6-14) Blood Urea Nitrogen 9 mg/dL (8-26) Creatinine 0.8 mg/dL (0.7-1.3) Estimated GFR (Cockcroft-Gault) 120.1 Glucose Level 139 mg/dL (70-99) Calcium Level 9.1 mg/dL (8.5-10.1) Phosphorus Level 4.7 mg/dL (2.6-4.7) Magnesium Level 2.4 mg/dL (1.8-2.4) Micro Microbiology 02/19/22 Gram Stain - Final, Resulted 02/19/22 Aerobic and Anaerobic Culture - Preliminary, Resulted Klebsiella Variicola 02/19/22 Blood Culture - Preliminary, Resulted NO GROWTH AFTER 3 DAYS 02/15/22 Urine Culture - Final, Complete Objective Assessment 1. Fever.pattern improving 2. Leukocytosis. Improving 3. Intractable abdominal pain, 4. Pancreatitis with fluid collection, partial splenic vein thrombosis. Status post IR drainage [id number], 100% PMNs Cultures negative so far 4. Shortness of breath, likely reactive from pancreatitis. 5. Constipation. Plan Plan of Care Cont meropenem Status post IR drainage Attempts were made for transfer to or [facility] Monitor labs and cultures. Cont supportive care MANISH GORDILLO MD Feb 24, 2022 11:25
--- NOTE | 2022-02-24 13:07 | PDOC ---
SURGICAL PROGRESS NOTE DATE: 02/24/22 TIME: 13:06 Subjective doing ok on tpn, not eating much no emesis Vital Signs Vital Signs Date Time Temp Pulse Resp B/P (MAP) Pulse Ox O2 Delivery O2 Flow Rate FiO2 02/24/22 11:00 97.6 88 20 128/80 (96) 99 Nasal Cannula 2.0 97.6 I&O Intake and Output 02/24/22 07:00 Intake Total 1200 ml Balance 1200 ml Intake Oral 1200 ml # Voids 1 General: Alert, Oriented X3, Cooperative Abdomen: Soft, No tenderness Labs Laboratory Tests Test 02/23/22 06:05 02/24/22 06:00 Sodium Level 138 mmol/L (136-145) 138 mmol/L (136-145) Potassium Level 4.7 mmol/L (3.5-5.1) 4.5 mmol/L (3.5-5.1) Chloride Level 102 mmol/L (98-107) 103 mmol/L (98-107) Carbon Dioxide Level 28 mmol/L (21-32) 28 mmol/L (21-32) Anion Gap 8 (6-14) 7 (6-14) Blood Urea Nitrogen 10 mg/dL (8-26) 9 mg/dL (8-26) Creatinine 0.8 mg/dL (0.7-1.3) 0.8 mg/dL (0.7-1.3) Estimated GFR (Cockcroft-Gault) 120.1 120.1 Glucose Level 144 mg/dL (70-99) 139 mg/dL (70-99) Calcium Level 9.2 mg/dL (8.5-10.1) 9.1 mg/dL (8.5-10.1) Phosphorus Level 2.8 mg/dL (2.6-4.7) 4.7 mg/dL (2.6-4.7) Magnesium Level 2.3 mg/dL (1.8-2.4) 2.4 mg/dL (1.8-2.4) White Blood Count 10.2 x10^3/uL (4.0-11.0) Red Blood Count 4.35 x10^6/uL (4.30-5.70) Hemoglobin 11.5 g/dL (13.0-17.5) Hematocrit 35.2 % (39.0-53.0) Mean Corpuscular Volume 81 fL (79-100) Mean Corpuscular Hemoglobin 27 pg (25-35) Mean Corpuscular Hemoglobin Concent 33 g/dL (31-37) Red Cell Distribution Width 14.8 % (11.5-14.5) Platelet Count 422 x10^3/uL (140-400) Neutrophils (%) (Auto) 78 % (31-73) Lymphocytes (%) (Auto) 14 % (24-48) Monocytes (%) (Auto) 6 % (0-9) Eosinophils (%) (Auto) 2 % (0-3) Basophils (%) (Auto) 1 % (0-3) Neutrophils # (Auto) 7.9 x10^3/uL (1.8-7.7) Lymphocytes # (Auto) 1.4 x10^3/uL (1.0-4.8) Monocytes # (Auto) 0.6 x10^3/uL (0.0-1.1) Eosinophils # (Auto) 0.2 x10^3/uL (0.0-0.7) Basophils # (Auto) 0.1 x10^3/uL (0.0-0.2) Laboratory Tests Test 02/24/22 06:00 White Blood Count 10.2 x10^3/uL (4.0-11.0) Red Blood Count 4.35 x10^6/uL (4.30-5.70) Hemoglobin 11.5 g/dL (13.0-17.5) Hematocrit 35.2 % (39.0-53.0) Mean Corpuscular Volume 81 fL (79-100) Mean Corpuscular Hemoglobin 27 pg (25-35) Mean Corpuscular Hemoglobin Concent 33 g/dL (31-37) Red Cell Distribution Width 14.8 % (11.5-14.5) Platelet Count 422 x10^3/uL (140-400) Neutrophils (%) (Auto) 78 % (31-73) Lymphocytes (%) (Auto) 14 % (24-48) Monocytes (%) (Auto) 6 % (0-9) Eosinophils (%) (Auto) 2 % (0-3) Basophils (%) (Auto) 1 % (0-3) Neutrophils # (Auto) 7.9 x10^3/uL (1.8-7.7) Lymphocytes # (Auto) 1.4 x10^3/uL (1.0-4.8) Monocytes # (Auto) 0.6 x10^3/uL (0.0-1.1) Eosinophils # (Auto) 0.2 x10^3/uL (0.0-0.7) Basophils # (Auto) 0.1 x10^3/uL (0.0-0.2) Sodium Level 138 mmol/L (136-145) Potassium Level 4.5 mmol/L (3.5-5.1) Chloride Level 103 mmol/L (98-107) Carbon Dioxide Level 28 mmol/L (21-32) Anion Gap 7 (6-14) Blood Urea Nitrogen 9 mg/dL (8-26) Creatinine 0.8 mg/dL (0.7-1.3) Estimated GFR (Cockcroft-Gault) 120.1 Glucose Level 139 mg/dL (70-99) Calcium Level 9.1 mg/dL (8.5-10.1) Phosphorus Level 4.7 mg/dL (2.6-4.7) Magnesium Level 2.4 mg/dL (1.8-2.4) Problem List Problems Medical Problems: (1) Failure of outpatient treatment Status: Acute (2) Intractable abdominal pain Status: Acute (3) Ketonuria Status: Acute (4) Leukocytosis Status: Acute Assessment/Plan d/w ID, ct to eval abscess TPN FU in clinic with Dr Teixeira to plan surgery Justicifation of Admission Dx: Justifications for Admission: Justification of Admission Dx: Yes GAURAV SELBY [employer] Feb 24, 2022 13:07
[2022-02-24] MEDS ORDERED: CONTRAST GIVEN. MC PRN (13:30)
[2022-02-24] MEDS ORDERED: IOHEXOL 300 MG/ML 100ML VIAL. IV ONE (13:30)
[2022-02-24] MEDS ORDERED: IOHEXOL 240 MG/ML 50ML VIAL. PO ONE (13:30)
--- NOTE | 2022-02-24 14:08 | PDOC ---
[employer] PROGRESS NOTE Date of Service DOS: DATE: 02/24/22 TIME: 14:06 Chief Complaint Chief Complaint Assessment/Plan Intractable abdominal pain - Periumbilical abdominal pain, pancreatitis with a pancreatic cyst Constipation Sepsis Plan prn IV pain control. Consult interventional radiology to see if any drainable fluid collection GI consult Home meds as indicated DVT prophylaxis Laxatives History of Present Illness History of Present Illness Mr Doyle is a 57 yo male who presents with several days of periumbilical abd ominal pain radiating through to the back. Associated with nausea but no vomiting. 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 No other masses appreciated. Curiously, he describes a history of back in 2012 where he had a similar cyst that was asymptomatic but found incidentally on imaging and was drained with what sounds like endoscopic ultrasound. He had no further symptoms or problems until now. He does not have any risk factors for pancreatitis. He does not have a history of gallstones or biliary disease and does not drink alcohol. He is not taking any medicines which are associated with pancreatitis. Normally he denies any significant chronic GI complaints such as pain, nausea or indigestion. 02/16 patient evaluated examined at bedside. Complaining of ongoing abdominal pain. However much more controlled. IR consult pending. Informed patient may not be able to be seen by them until Friday as not an emergency and he understands this. Continue current otherwise. 02/17: Patient evaluated examined at bedside. Reported pain about the same well- controlled pain meds but will wear off in a fair bit of pain. GI consulted to today much appreciate the very thorough assessment. IR consult patient agreeable to drainage if deemed good option. 02/18: Febrile 102.1 F overnight. Still with significant pain 9 out of 10 with deep inspiration in his left upper quadrant and into his back and left flank. Tolerating Zosyn IV. CT abdomen pelvis upon my interpretation fluid collection in the tail of the pancreas 7.3 x 6.3 x 6.8 cm pancreatic inflammation. Multiple renal cysts, prostatomegaly. Splenic vein branch appeared ccluded on CT but ultrasound showed Doppler flow. Discussed with GI who discussed with interventional radiology EUS would be appropriate we do not have this ability at our facility and patient wishes for referral to [facility] or [facility] 02/19: Febrile to 100.7 F overnight. Feels like Percocet is covering his pain a little bit but fentanyl is wearing off still with splinting on deep inspiration. Will change IV medications to Dilaudid every 3 hours as needed and consult infectious diseases, changed to Carbapenem. 02/20: T-max 100 F last 24 hours. N.p.o. for consideration of cyst drainage [facility] interventional radiology today WBC still elevated at 14.7. 02/21: Afebrile overnight. Had significantly more pain after is percutaneous drain by IR increase to 2 mg of Dilaudid. Still has very little appetite only thing is asking for his coffee PICC and TPN ordered we will consult general surgery. His [facility] records arrived from 2014 when he previously had EUS. 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 At the time ampulla and CBD appeared normal with no evidence of dilation. CEA at that time was 17.9 he was recommended to follow-up with GI and surgery in clinic 02/22: PICC in place now on TPN. Pain is improved his appetite has not. Had consultation with general surgery for consideration of distal pancreatectomy cholecystectomy and splenectomy which he will look into outpatient. Pending cultures from pancreatic cyst aspiration currently. Plan will be to tailor antibiotics toward this and go home on TPN until follow-up with general surgery in 2 weeks and will need to await final culture results prior to discharge planning 02/23: Afebrile overnight. On TPN. Pancreatic cyst aspiration culture growing Klebsiella Variicola, largely pansensitive. Continue meropenem for now, per ID. Patient does confirm that he has an appointment with Dr. Chong for outpatient cholecystectomy and pancreatic resection. He remains on TPN, with no appetite. 02/24: Had a headache overnight not remitted with Tylenol and ultimately received Dilaudid though he feels like he has had no abdominal pain. Will order as needed Toradol. Still on TPN discussed with ID for repeat CT abdomen pelvis to reassess abscess to consider outpatient IV antibiotics versus p.o. antibiotics. Still with no appetite and requiring TPN Vitals/I&O Vitals/I&O: Vital Signs Date Time Temp Pulse Resp B/P (MAP) Pulse Ox O2 Delivery O2 Flow Rate FiO2 02/24/22 11:00 97.6 88 20 128/80 (96) 99 Nasal Cannula 2.0 97.6 I & O 02/23/22 02/23/22 02/24/22 15:00 23:00 07:00 Intake Total 300 ml 900 ml Balance 300 ml 900 ml Physical Exam Physical Exam: GENERAL: Well-developed, well-nourished, alert, oriented x3 male, lying in bed comfortably, in no acute distress. HEENT: Normocephalic, atraumatic. Anicteric. No thrush. Oral mucosa moist. NECK: Supple, no JVD. LUNGS: Clear bilaterally. No wheezing. HEART: S1, S2. No murmurs. ABDOMEN: Mildly distended, mild diffuse tenderness present, bowel sounds present. No rebound, no guarding. EXTREMITIES: No edema, no cyanosis. DERMATOLOGIC: Warm, dry, no generalized rash. NEUROLOGIC: Alert, oriented x3, grossly nonfocal. PSYCHIATRIC: Calm and cooperative. General: Alert, Oriented X3, Cooperative Heart: Regular rate, Normal S1, Normal S2 Lungs: Clear Abdomen: Soft, No tenderness Extremities: No clubbing, No cyanosis Skin: No rashes, No breakdown Labs Labs: Laboratory Tests Test 02/24/22 06:00 White Blood Count 10.2 x10^3/uL (4.0-11.0) Red Blood Count 4.35 x10^6/uL (4.30-5.70) Hemoglobin 11.5 g/dL (13.0-17.5) Hematocrit 35.2 % (39.0-53.0) Mean Corpuscular Volume 81 fL (79-100) Mean Corpuscular Hemoglobin 27 pg (25-35) Mean Corpuscular Hemoglobin Concent 33 g/dL (31-37) Red Cell Distribution Width 14.8 % (11.5-14.5) Platelet Count 422 x10^3/uL (140-400) Neutrophils (%) (Auto) 78 % (31-73) Lymphocytes (%) (Auto) 14 % (24-48) Monocytes (%) (Auto) 6 % (0-9) Eosinophils (%) (Auto) 2 % (0-3) Basophils (%) (Auto) 1 % (0-3) Neutrophils # (Auto) 7.9 x10^3/uL (1.8-7.7) Lymphocytes # (Auto) 1.4 x10^3/uL (1.0-4.8) Monocytes # (Auto) 0.6 x10^3/uL (0.0-1.1) Eosinophils # (Auto) 0.2 x10^3/uL (0.0-0.7) Basophils # (Auto) 0.1 x10^3/uL (0.0-0.2) Sodium Level 138 mmol/L (136-145) Potassium Level 4.5 mmol/L (3.5-5.1) Chloride Level 103 mmol/L (98-107) Carbon Dioxide Level 28 mmol/L (21-32) Anion Gap 7 (6-14) Blood Urea Nitrogen 9 mg/dL (8-26) Creatinine 0.8 mg/dL (0.7-1.3) Estimated GFR (Cockcroft-Gault) 120.1 Glucose Level 139 mg/dL (70-99) Calcium Level 9.1 mg/dL (8.5-10.1) Phosphorus Level 4.7 mg/dL (2.6-4.7) Magnesium Level 2.4 mg/dL (1.8-2.4) Assessment and Plan Assessmemt and Plan Problems Medical Problems: (1) Failure of outpatient treatment Status: Acute (2) Intractable abdominal pain Status: Acute (3) Ketonuria Status: Acute (4) Leukocytosis Status: Acute Comment Review of Relevant I have reviewed the following items dalia (where applicable) has been applied. Medications: Current Medications Medications (Trade) Dose Ordered Sig/Chirag Route PRN Reason Start Time Stop Time Status Last Admin Dose Admin Sodium Chloride 90 meq/Sodium Phosphate 10 mmol/ Potassium Phosphate 10 mmol/ Magnesium Sulfate 2.5 meq/ Multivitamins 10 ml/Zinc/Copper/ Manganese/ Selenium 1 ml/ Total Parenteral Nutrition/Amino Acids/Dextrose/ Fat Emulsion Intravenous 1,512 ml @ 63 mls/hr TPN CONT IV 02/23/22 22:00 02/24/22 21:59 02/23/22 21:44 Losartan Potassium (Cozaar) 50 mg HS PO 02/23/22 21:00 02/23/22 21:41 Justifications for Admission Other Justification AJAY HOFFMAN MD Feb 24, 2022 14:08
--- NOTE | 2022-02-24 16:06 | RAD ---
PQRS Compliance Statement: One or more of the following individualized dose reduction techniques were utilized for this examinat ion: 1. Automated exposure control 2. Adjustment of the mA and/or kV according to patient size 3. Use of iterative reconstruction technique Exam performed: CT abdomen and pelvis with contrast HISTORY: Abscess evaluation. DATE OF SERVICE: 02/25/2020. COMPARISON: CT abdomen pelvis with contrast from 02/15/2022. TECHNIQUE: Contiguous helical acquisitions are obtained through the abdomen and pelvis during intrave nous administration of 75 cc of 40. Sagittal and coronal reformatted images are obtained and reviewed . FINDINGS: There is interval decrease in size of previously seen cystic lesion in relation to the pancreatic chanelle l with mild adjacent inflammatory changes. The size of the lesion now measures 5.2 x 4.6 x 5.4 cm in maximum AP, transverse and craniocaudal dimension. There is now internal gas within the cystic nodule . Lung bases are clear. Linear left basilar atelectasis. The visualized heart is normal. Mild hepatic steatosis. Tiny low attenuating left hepatic lobe nodule likely cyst. Spleen and gallbla dder are normal. The remainder of the pancreas appears unremarkable. Both adrenal glands and bilatera l kidneys are normal in size with symmetric excretion of contrast via both kidneys. Bilateral renal c ysts. Aorta is normal in caliber without aneurysm. No retroperitoneal or mesenteric lymphadenopathy s een. Small and large bowel loops are nondilated and unremarkable. Appendix is not clearly seen. Changes in the right lower quadrant. Urinary bladder is decompressed. Prostatomegaly. No free or foca l fluid collections are identified. IMPRESSION: Interval decrease in the size of previously seen fluid collection along the pancreatic tail now conta ining pockets of gas which could be related to recent intervention or improving abscess. Prostatomegaly Electronically signed by: Paola Muller MD (02/24/2022 4:03 PM) [facility] HOSPITALCheryl
--- NOTE | 2022-02-24 17:50 | NUR ---
Nurse's note: IV and PO contrast administered for CT.
[2022-02-24] MEDS: LOSARTAN POTASSIUM 50 MG TABLET. PO SCH (21:05)
[2022-02-24] MEDS ORDERED: TOTAL PARENTERAL NUTRITION IV SCH (22:00)
[2022-02-24] MEDS ORDERED: [UNRECOGNIZED DRUG - OTHER] IV SCH (22:00)
[2022-02-24] MEDS ORDERED: AMINO ACID IV SCH (22:00)
[2022-02-24] MEDS ORDERED: DEXTROSE 70% IV SCH (22:00)
[2022-02-25] MEDS: KETOROLAC 30 MG/ML VIAL. IVP PRN ×2 (02:45→23:16)
[2022-02-25 03:00] VITALS: BP 135/83
[2022-02-25] MEDS: HEPARIN for SUB-Q USE 5,000 UNIT/ML VIAL. SQ SCH ×3 (04:54→22:00)
[2022-02-25] MEDS: MEROPENEM 500 MG in IV NORMAL SALINE 50ML 50 ML IV SCH ×2 (05:27→11:14)
[2022-02-25 06:20] LABS: CALCIUM 8.9 mg/dL (8.5-10.1); CREATININE 0.8 mg/dL (0.7-1.3); GFR 120.1; MAGNESIUM 2.3 mg/dL (1.8-2.4); PHOSPHORUS 3.3 mg/dL (2.6-4.7); POTASSIUM 4.4 mmol/L (3.5-5.1)
[2022-02-25 07:00] VITALS: BP 140/92
[2022-02-25] MEDS: ASPIRIN CHEWABLE 81 MG TABLET. PO SCH (08:51)
[2022-02-25] MEDS: SENNOSIDES/DOCUSATE 8.6/50MG TABLET. PO SCH ×2 (08:51→21:34)
[2022-02-25] MEDS: FINASTERIDE 5 MG TABLET. PO SCH (08:51)
[2022-02-25] MEDS: PANTOPRAZOLE IV PUSH 40 MG VIAL. IVP SCH (08:51)
[2022-02-25 11:00] VITALS: BP 141/92
[2022-02-25] MEDS: TPN PER PHARMACY MC PRN (11:34)
--- NOTE | 2022-02-25 11:43 | NUR ---
Pharmacy TPN Dosing Note S: BRISSA PENA is a 57 year old M Currently receiving TPN started 02/21/22 B:Pertinent PMH: pancreatitis Height: 5 feet, 6 inches Weight: 117.292882 kg Current diet: CLD LABS: Sodium: 137 Potassium: 4.4 Chloride: 103 Calcium: 8.9 Corrected Calcium: 9.94 Magnesium: 2.3 CO2: 27 SCr: 0.8 Glucose: 137 Albumin: 2.7 AST: 35 ALT: 40 TPN FORMULA: TPN TYPE: AMINO ACIDS: 75 gm DEXTROSE: 235 gm LIPIDS: 30 gm SODIUM CHLORIDE: 90 mEq POTASSIUM PHOSPHATE: 10 mmol MAGNESIUM: 2.5 mEq MULTIPLE VITAMIN: 10 ml TRACE ELEMENTS: 1ml ml(s) TPN PLAN: Continue same TPN. Next labs on . R: Continue TPN Will monitor electrolytes, glucose, and tolerance to TPN. Delmar Leggett [facility], 02/25/22 1146
--- NOTE | 2022-02-25 12:10 | PDOC ---
[employer] PROGRESS NOTE Date of Service DOS: DATE: 02/25/22 TIME: 12:09 Chief Complaint Chief Complaint Pancreatitis with fluid collection, partial splenic vein thrombosis. Status post IR drainage [id number], 100% PMNs Intractable abdominal pain - Periumbilical abdominal pain, pancreatitis with a pancreatic cyst Constipation Sepsis History of Present Illness History of Present Illness 02/25/2022 Patient seen and examined Discussed with RN Chart reviewed Discussed with case management He is currently on TPN Mr Doyle is a 57 yo male who presents with several days of periumbilical abdominal pain radiating through to the back. Associated with nausea but no vomiting. 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 No other masses appreciated. Curiously, he describes a history of back in 2012 where he had a similar cyst that was asymptomatic but found incidentally on imaging and was drained with what sounds like endoscopic ultrasound. He had no further symptoms or problems until now. He does not have any risk factors for pancreatitis. He does not have a history of gallstones or biliary disease and does not drink alcohol. He is not taking any medicines which are associated with pancreatitis. Normally he denies any significant chronic GI complaints such as pain, nausea or indigestion. 02/16 patient evaluated examined at bedside. Complaining of ongoing abdominal pain. However much more controlled. IR consult pending. Informed patient may not be able to be seen by them until Friday as not an emergency and he understands this. Continue current otherwise. 02/17: Patient evaluated examined at bedside. Reported pain about the same well- controlled pain meds but will wear off in a fair bit of pain. GI consulted to today much appreciate the very thorough assessment. IR consult patient agreeable to drainage if deemed good option. 02/18: Febrile 102.1 F overnight. Still with significant pain 9 out of 10 with deep inspiration in his left upper quadrant and into his back and left flank. Tolerating Zosyn IV. CT abdomen pelvis upon my interpretation fluid collection in the tail of the pancreas 7.3 x 6.3 x 6.8 cm pancreatic inflammation. Multiple renal cysts, prostatomegaly. Splenic vein branch appeared ccluded on CT but ultrasound showed Doppler flow. Discussed with GI who discussed with interventional radiology EUS would be appropriate we do not have this ability at our facility and patient wishes for referral to [facility] or [facility] 02/19: Febrile to 100.7 F overnight. Feels like Percocet is covering his pain a little bit but fentanyl is wearing off still with splinting on deep inspiration. Will change IV medications to Dilaudid every 3 hours as needed and consult infectious diseases, changed to Carbapenem. 02/20: T-max 100 F last 24 hours. N.p.o. for consideration of cyst drainage with interventional radiology today WBC still elevated at 14.7. 02/21: Afebrile overnight. Had significantly more pain after is percutaneous drain by IR increase to 2 mg of Dilaudid. Still has very little appetite only thing is asking for his coffee PICC and TPN ordered we will consult general surgery. His [facility] records arrived from 2014 when he previously had EUS. 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 At the time ampulla and CBD appeared normal with no evidence of dilation. CEA at that time was 17.9 he was recommended to follow-up with GI and surgery in clinic 02/22: PICC in place now on TPN. Pain is improved his appetite has not. Had consultation with general surgery for consideration of distal pancreatectomy cholecystectomy and splenectomy which he will look into outpatient. Pending cultures from pancreatic cyst aspiration currently. Plan will be to tailor antibiotics toward this and go home on TPN until follow-up with general surgery in 2 weeks and will need to await final culture results prior to discharge planning 02/23: Afebrile overnight. On TPN. Pancreatic cyst aspiration culture growing Klebsiella Variicola, largely pansensitive. Continue meropenem for now, per ID. Patient does confirm that he has an appointment with Dr. Chong for outpatient cholecystectomy and pancreatic resection. He remains on TPN, with no appetite. 02/24: Had a headache overnight not remitted with Tylenol and ultimately received Dilaudid though he feels like he has had no abdominal pain. Will order as needed Toradol. Still on TPN discussed with ID for repeat CT abdomen pelvis to reassess abscess to consider outpatient IV antibiotics versus p.o. antibiotics. Still with no appetite and requiring TPN Vitals/I&O Vitals/I&O: Vital Signs Date Time Temp Pulse Resp B/P (MAP) Pulse Ox O2 Delivery O2 Flow Rate FiO2 02/25/22 07:52 Room Air 02/25/22 07:00 98.3 77 18 140/92 (108) 98 98.3 02/25/22 03:00 2.0 I & O 02/24/22 02/24/22 02/25/22 15:00 23:00 07:00 Intake Total 300 ml 100 ml 850 ml Balance 300 ml 100 ml 850 ml Physical Exam Physical Exam: GENERAL: Well-developed, well-nourished, alert, oriented x3 male, lying in bed comfortably, in no acute distress. HEENT: Normocephalic, atraumatic. Anicteric. No thrush. Oral mucosa moist. NECK: Supple, no JVD. LUNGS: Clear bilaterally. No wheezing. HEART: S1, S2. No murmurs. ABDOMEN: Mildly distended, mild diffuse tenderness present, bowel sounds present. No rebound, no guarding. EXTREMITIES: No edema, no cyanosis. DERMATOLOGIC: Warm, dry, no generalized rash. NEUROLOGIC: Alert, oriented x3, grossly nonfocal. PSYCHIATRIC: Calm and cooperative. General: Alert, Oriented X3, Cooperative Heart: Regular rate, Normal S1, Normal S2 Lungs: Clear Abdomen: Soft, No tenderness Extremities: No clubbing, No cyanosis Skin: No rashes, No breakdown Labs Labs: Laboratory Tests Test 02/25/22 05:30 Sodium Level 137 mmol/L (136-145) Potassium Level 4.4 mmol/L (3.5-5.1) Chloride Level 103 mmol/L (98-107) Carbon Dioxide Level 27 mmol/L (21-32) Anion Gap 7 (6-14) Blood Urea Nitrogen 10 mg/dL (8-26) Creatinine 0.8 mg/dL (0.7-1.3) Estimated GFR (Cockcroft-Gault) 120.1 Glucose Level 137 mg/dL (70-99) Calcium Level 8.9 mg/dL (8.5-10.1) Phosphorus Level 3.3 mg/dL (2.6-4.7) Magnesium Level 2.3 mg/dL (1.8-2.4) Assessment and Plan Assessmemt and Plan Problems Medical Problems: (1) Failure of outpatient treatment Status: Acute (2) Intractable abdominal pain Status: Acute (3) Ketonuria Status: Acute (4) Leukocytosis Status: Acute Pancreatitis with fluid collection, partial splenic vein thrombosis. Status post IR drainage [id number], 100% PMNs Intractable abdominal pain - Periumbilical abdominal pain, pancreatitis with a pancreatic cyst Constipation Sepsis Plan prn IV pain control. GI and ID are following IV antibiotics Home meds as indicated DVT prophylaxis Laxatives Comment Review of Relevant I have reviewed the following items dalia (where applicable) has been applied. Medications: Current Medications Medications (Trade) Dose Ordered Sig/Chirag Route PRN Reason Start Time Stop Time Status Last Admin Dose Admin Sodium Chloride 90 meq/Potassium Phosphate 10 mmol/ Magnesium Sulfate 2.5 meq/ Multivitamins 10 ml/Zinc/Copper/ Manganese/ Selenium 1 ml/ Total Parenteral Nutrition/Amino Acids/Dextrose/ Fat Emulsion Intravenous 1,512 ml @ 63 mls/hr TPN CONT IV 02/24/22 22:00 02/25/22 21:59 02/24/22 21:08 Ketorolac Tromethamine (Toradol 30mg Vial) 30 mg PRN Q6HRS PRN IVP INFLAMMATION 02/24/22 14:00 02/25/22 02:45 Justifications for Admission Other Justification BRETT CORDON III DO Feb 25, 2022 12:10
--- NOTE | 2022-02-25 13:19 | PDOC ---
Date of Service: DATE: 02/25/22 TIME: 13:15 Subjective: Subjective: No abdominal pain. Taking a few liquids. He understood he was to discharge on TPN, now says he was told he needed to advance his diet. Objective: Vital Signs: Vital Signs Date Time Temp Pulse Resp B/P (MAP) Pulse Ox O2 Delivery O2 Flow Rate FiO2 02/25/22 11:00 98.0 88 18 141/92 (108) 96 Room Air 98.0 02/25/22 03:00 2.0 Labs: Laboratory Tests Test 02/25/22 05:30 Sodium Level 137 mmol/L Potassium Level 4.4 mmol/L Chloride Level 103 mmol/L Carbon Dioxide Level 27 mmol/L Anion Gap 7 Blood Urea Nitrogen 10 mg/dL Creatinine 0.8 mg/dL Estimated GFR (Cockcroft-Gault) 120.1 Glucose Level 137 mg/dL Calcium Level 8.9 mg/dL Phosphorus Level 3.3 mg/dL Magnesium Level 2.3 mg/dL GRAM STAIN-AER DORINDA Final PMNS (WBCS): MANY SQUAMOUS EPI CELL: NOT APPLICABLE NO ORGANISMS SEEN NO ORGANISMS SEEN CULTURE ANAEROBIC/AEROBIC Preliminary MANY GRAM NEGATIVE RODS on 02/22/22 at 0902. FINAL ID= [email or web address] VARIICOLA Testing performed by [address] [id number] search director: Ariana Houston MD Organism 1 KLEBSIELLA VARIICOLA Organism 2 KLEBSIELLA VARIICOLA#2 Imaging: CT A/P 02/24 IMPRESSION: Interval decrease in the size of previously seen fluid collection along the pancreatic tail now containing pockets of gas which could be related to recent intervention or improving abscess. Prostatomegaly PE: GEN: NAD - looks well LUNGS: CTAB HEART: RRR ABD: S/ND/NT NEURO/PSYCH: A & O 3 A/P: Pancreatic cyst - aspirate results as above, atbx per ID -- On TPN, plans for follow-up w/ surgery as outpt to discuss elective distal pancreatectomy and splenectomy w/ Dr. Teixeira. Justicifation of Admission Dx: Justifications for Admission: Justification of Admission Dx: Yes REMBERTO CARDENAS Feb 25, 2022 13:19
--- NOTE | 2022-02-25 13:43 | PDOC ---
Infectious Disease Note Subjective: Subjective Patient without complaints Denies any abdominal pain Tolerating meropenem well No fever, nausea, vomiting, diarrhea, shortness of breath or cough Vital Signs: Vital Signs Vital Signs Date Time Temp Pulse Resp B/P (MAP) Pulse Ox O2 Delivery O2 Flow Rate FiO2 02/25/22 11:00 98.0 88 18 141/92 (108) 96 Room Air 98.0 02/25/22 03:00 2.0 Physical Exam: PHYSICAL EXAM GENERAL: Well-developed, well-nourished, alert, oriented x3 male, lying in bed comfortably, in no acute distress. HEENT: Normocephalic, atraumatic. Anicteric. No thrush. Oral mucosa moist. NECK: Supple, no JVD. LUNGS: Clear bilaterally. No wheezing. HEART: S1, S2. No murmurs. ABDOMEN: Mildly distended. Bowel sounds present. Nontender No rebound, no guarding. EXTREMITIES: No edema, no cyanosis. DERMATOLOGIC: Warm, dry, no generalized rash. NEUROLOGIC: Alert, oriented x3, grossly nonfocal. PSYCHIATRIC: Calm and cooperative. Medications: Inpatient Meds: Medications reviewed. Labs: Lab Laboratory Tests Test 02/25/22 05:30 Sodium Level 137 mmol/L (136-145) Potassium Level 4.4 mmol/L (3.5-5.1) Chloride Level 103 mmol/L (98-107) Carbon Dioxide Level 27 mmol/L (21-32) Anion Gap 7 (6-14) Blood Urea Nitrogen 10 mg/dL (8-26) Creatinine 0.8 mg/dL (0.7-1.3) Estimated GFR (Cockcroft-Gault) 120.1 Glucose Level 137 mg/dL (70-99) Calcium Level 8.9 mg/dL (8.5-10.1) Phosphorus Level 3.3 mg/dL (2.6-4.7) Magnesium Level 2.3 mg/dL (1.8-2.4) Objective: Assessment: 1. Fever.pattern improving 2. Leukocytosis. Improving 3. Intractable abdominal pain, 4. Pancreatitis with fluid collection, partial splenic vein thrombosis. Status post IR drainage [id number], 100% PMNs Cultures Klebsiella varicola 2 species 4. Shortness of breath, likely reactive from pancreatitis. 5. Constipation. Resolved now loose bowel movement intermittently On TPN Plan: Plan of Care Change meropenem to ceftriaxone Observe closely Remains on TPN Failed attempts made for transfer to or [facility] Monitor labs and cultures. Cont supportive care JORGE ALBERTO GORDILLO MD Feb 25, 2022 13:43
[2022-02-25 15:00] VITALS: BP 147/100
[2022-02-25] MEDS: cefTRIAXone IV Push 2 GM VIAL. IVP SCH (17:15)
[2022-02-25 19:25] VITALS: BP 148/91
[2022-02-25] MEDS: LOSARTAN POTASSIUM 50 MG TABLET. PO SCH (21:35)
[2022-02-25] MEDS ORDERED: AMINO ACID IV SCH (22:00)
[2022-02-25] MEDS ORDERED: TOTAL PARENTERAL NUTRITION IV SCH (22:00)
[2022-02-25] MEDS ORDERED: [UNRECOGNIZED DRUG - OTHER] IV SCH (22:00)
[2022-02-25] MEDS ORDERED: DEXTROSE 70% IV SCH (22:00)
[2022-02-25 23:33] VITALS: BP 119/81
[2022-02-25] MEDS ORDERED: hydroCHLOROthiazide 12.5 MG TABLET PO ONE (23:45)
[2022-02-26 00:34] LABS: HEMOGLOBIN A1C 6.9 % (4.8-5.6)
[2022-02-26] MEDS: ACETAMINOPHEN 325 MG TABLET. PO PRN (02:47)
[2022-02-26 03:07] VITALS: BP 140/98
[2022-02-26] MEDS: HEPARIN for SUB-Q USE 5,000 UNIT/ML VIAL. SQ SCH ×3 (06:00→21:06)
[2022-02-26 07:00] VITALS: BP 141/88
[2022-02-26] MEDS: ASPIRIN CHEWABLE 81 MG TABLET. PO SCH (08:53)
[2022-02-26] MEDS: PANTOPRAZOLE IV PUSH 40 MG VIAL. IVP SCH (08:53)
[2022-02-26] MEDS: FINASTERIDE 5 MG TABLET. PO SCH (08:53)
[2022-02-26] MEDS: SENNOSIDES/DOCUSATE 8.6/50MG TABLET. PO SCH ×2 (09:00→21:04)
--- NOTE | 2022-02-26 09:56 | PDOC ---
Date of Service: DATE: 02/26/22 TIME: 09:51 Subjective: Subjective: No GI complaints. Taking some liquids. On TPN and IV atbx. Indicates surgery scheduled for 03/08. Objective: Vital Signs: Vital Signs Date Time Temp Pulse Resp B/P (MAP) Pulse Ox O2 Delivery O2 Flow Rate FiO2 02/26/22 07:59 Room Air 2.0 02/26/22 07:00 98.2 89 18 141/88 (105) 95 98.2 PE: GEN: NAD LUNGS: CTAB HEART: RRR ABD: S/NT NEURO/PSYCH: A & O 3 A/P: Pancreatic tail abscess - previous biopsy of cyst c/w microcystic adenoma -- Continue same per GI. Justicifation of Admission Dx: Justifications for Admission: Justification of Admission Dx: Yes REMBERTO CARDENAS Feb 26, 2022 09:56
--- NOTE | 2022-02-26 10:58 | PDOC ---
Infectious Disease Note Subjective: Subjective Patient without complaints Denies any abdominal pain Tolerating meropenem well No fever, nausea, vomiting, diarrhea, shortness of breath or cough Vital Signs: Vital Signs Vital Signs Date Time Temp Pulse Resp B/P (MAP) Pulse Ox O2 Delivery O2 Flow Rate FiO2 02/26/22 07:59 Room Air 2.0 02/26/22 07:00 98.2 89 18 141/88 (105) 95 98.2 Physical Exam: PHYSICAL EXAM GENERAL: Well-developed, well-nourished, alert, oriented x3 male, lying in bed comfortably, in no acute distress. HEENT: Normocephalic, atraumatic. Anicteric. No thrush. Oral mucosa moist. NECK: Supple, no JVD. LUNGS: Clear bilaterally. No wheezing. HEART: S1, S2. No murmurs. ABDOMEN: Mildly distended. Bowel sounds present. Nontender No rebound, no guarding. EXTREMITIES: No edema, no cyanosis. DERMATOLOGIC: Warm, dry, no generalized rash. NEUROLOGIC: Alert, oriented x3, grossly nonfocal. PSYCHIATRIC: Calm and cooperative. Medications: Inpatient Meds: Medications reviewed. Objective: Assessment: 1. Fever.pattern improved 2. Leukocytosis. Resolved 3. Intractable abdominal pain, improved 4. Pancreatitis with fluid collection, partial splenic vein thrombosis. Status post IR drainage [id number], 100% PMNs Cultures Klebsiella varicola 2 species 4. Shortness of breath, likely reactive from pancreatitis. Improved 5. Constipation. Resolved now loose bowel movement intermittently On TPN Plan: Plan of Care Continue ceftriaxone Cont supportive care Patient continues on TPN Awaiting discharge on TPN Awaiting surgery last week february Discussed with JORGE ALBERTO ALAS MD Feb 26, 2022 10:58
[2022-02-26 11:00] VITALS: BP 158/93
--- NOTE | 2022-02-26 11:01 | PDOC ---
[facility] [facility] PROGRESS NOTE Date of Service DOS: DATE: 02/26/22 TIME: 11:00 Chief Complaint Chief Complaint Pancreatitis with fluid collection, partial splenic vein thrombosis. Status post IR drainage [id number], 100% PMNs Intractable abdominal pain - Periumbilical abdominal pain, pancreatitis with a pancreatic cyst Constipation Sepsis History of Present Illness History of Present Illness 02/26/2022 Patient seen and examined Discussed with RN Chart reviewed He is still on TPN 02/25/2022 Patient seen and examined Discussed with RN Chart reviewed Discussed with case management He is currently on TPN Mr Doyle is a 57 yo male who presents with several days of periumbilical abdominal pain radiating through to the back. Associated with nausea but no vomiting. 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 No other masses appreciated. Curiously, he describes a history of back in 2012 where he had a similar cyst that was asymptomatic but found incidentally on imaging and was drained with what sounds like endoscopic ultrasound. He had no further symptoms or problems until now. He does not have any risk factors for pancreatitis. He does not have a history of gallstones or biliary disease and does not drink alcohol. He is not taking any medicines which are associated with pancreatitis. Normally he denies any significant chronic GI complaints such as pain, nausea or indigestion. 02/16 patient evaluated examined at bedside. Complaining of ongoing abdominal pain. However much more controlled. IR consult pending. Informed patient may not be able to be seen by them until Friday as not an emergency and he u nderstands this. Continue current otherwise. 02/17: Patient evaluated examined at bedside. Reported pain about the same well-controlled pain meds but will wear off in a fair bit of pain. GI consulted to today much appreciate the very thorough assessment. IR consult patient agreeable to drainage if deemed good option. 02/18: Febrile 102.1 F overnight. Still with significant pain 9 out of 10 with deep inspiration in his left upper quadrant and into his back and left flank. Tolerating Zosyn IV. CT abdomen pelvis upon my interpretation fluid collection in the tail of the pancreas 7.3 x 6.3 x 6.8 cm pancreatic inflammation. Multip le renal cysts, prostatomegaly. Splenic vein branch appeared ccluded on CT but ultrasound showed Doppler flow. Discussed with GI who discussed with interventional radiology EUS would be appropriate we do not have this ability at our facility and patient wishes for referral to [facility] or [facility] 02/19: Febrile to 100.7 F overnight. Feels like Percocet is covering his pain a little bit but fentanyl is wearing off still with splinting on deep inspiration. Will change IV medications to Dilaudid every 3 hours as needed and consult infectious diseases, changed to Carbapenem. 02/20: T-max 100 F last 24 hours. N.p.o. for consideration of cyst drainage with interventional radiology today WBC still elevated at 14.7. 02/21: Afebrile overnight. Had significantly more pain after is percutaneous drain by IR increase to 2 mg of Dilaudid. Still has very little appetite only thing is asking for his coffee PICC and TPN ordered we will consult general surgery. His [facility] records arrived from 2014 when he previously had EUS. He was apparently noted initially in 2012 with incidental finding of pancreatic cyst 11 underwent EUS 08/02/2015 the tail the pancreas 3.5 x 3 and after multiple FNAs pathology revealed microcystic adenoma and cuboidal cells w ith negative nuclei. At the time ampulla and CBD appeared normal with no evidence of dilation. CEA at that time was 17.9 he was recommended to follow-up with GI and surgery in clinic 02/22: PICC in place now on TPN. Pain is improved his appetite has not. Had consultation with general surgery for consideration of distal pancreatectomy cholecystectomy and splenectomy which he will look into outpatient. Pending cultures from pancreatic cyst aspiration currently. Plan will be to tailor antibiotics toward this and go home on TPN until follow-up with general surgery in 2 weeks and will need to await final culture results prior to discharge planning 02/23: Afebrile overnight. On TPN. Pancreatic cyst aspiration culture growing Klebsiella Variicola, largely pansensitive. Continue meropenem for now, per ID. Patient does confirm that he has an appointment with Dr. Chong for outpatient cholecystectomy and pancreatic resection. He remains on TPN, with no appetite. 02/24: Had a headache overnight not remitted with Tylenol and ultimately received Dilaudid though he feels like he has had no abdominal pain. Will order as needed Toradol. Still on TPN discussed with ID for repeat CT abdomen pelvis to reassess abscess to consider outpatient IV antibiotics versus p.o. antibiotics. Still with no appetite and requiring TPN Vitals/I&O Vitals/I&O: Vital Signs Date Time Temp Pulse Resp B/P (MAP) Pulse Ox O2 Delivery O2 Flow Rate FiO2 02/26/22 07:59 Room Air 2.0 02/26/22 07:00 98.2 89 18 141/88 (105) 95 98.2 I & O 02/25/22 02/25/22 02/26/22 15:00 23:00 07:00 Intake Total 240 ml Balance 240 ml Physical Exam Physical Exam: GENERAL: Well-developed, well-nourished, alert, oriented x3 male, lying in bed comfortably, in no acute distress. HEENT: Normocephalic, atraumatic. Anicteric. No thrush. Oral mucosa moist. NECK: Supple, no JVD. LUNGS: Clear bilaterally. No wheezing. HEART: S1, S2. No murmurs. ABDOMEN: Mildly distended. Bowel sounds present. Nontender No rebound, no guarding. EXTREMITIES: No edema, no cyanosis. DERMATOLOGIC: Warm, dry, no generalized rash. NEUROLOGIC: Alert, oriented x3, grossly nonfocal. PSYCHIATRIC: Calm and cooperative. General: Alert, Oriented X3, Cooperative Heart: Regular rate, Normal S1, Normal S2 Lungs: Clear Abdomen: Soft, No tenderness Extremities: No clubbing, No cyanosis Skin: No rashes, No breakdown Assessment and Plan Assessmemt and Plan Problems Medical Problems: (1) Failure of outpatient treatment Status: Acute (2) Intractable abdominal pain Status: Acute (3) Ketonuria Status: Acute (4) Leukocytosis Status: Acute Pancreatitis with fluid collection, partial splenic vein thrombosis. Status post IR drainage [id number], 100% PMNs Intractable abdominal pain - Periumbilical abdominal pain, pancreatitis with a pancreatic cyst Constipation Sepsis Plan Continue TPN prn IV pain control. GI and ID are following IV antibiotics Home meds as indicated DVT prophylaxis Laxatives Will likely go home with home TPN soon Comment Review of Relevant I have reviewed the following items dalia (where applicable) has been applied. Medications: Current Medications Medications (Trade) Dose Ordered Sig/Chirag Route PRN Reason Start Time Stop Time Status Last Admin Dose Admin Sodium Chloride 90 meq/Potassium Phosphate 10 mmol/ Magnesium Sulfate 2.5 meq/ Multivitamins 10 ml/Zinc/Copper/ Manganese/ Selenium 1 ml/ Total Parenteral Nutrition/Amino Acids/Dextrose/ Fat Emulsion Intravenous 1,512 ml @ 63 mls/hr TPN CONT IV 02/25/22 22:00 02/26/22 21:59 02/25/22 21:37 Ceftriaxone Sodium (Rocephin) 2 gm Q24H IVP 02/25/22 17:00 02/25/22 17:15 Hydrochlorothiazide (Microzide) 12.5 mg 1X ONCE PO 02/25/22 23:45 02/25/22 23:46 DC 02/25/22 23:45 Justifications for Admission Other Justification BRETT CORDON III DO Feb 26, 2022 11:01
--- NOTE | 2022-02-26 12:01 | PDOC ---
GAURAV SELBY STRUCTURES ENGINEER 02/26/22 1201: SURGICAL PROGRESS NOTE DATE: 02/26/22 TIME: 12:01 Subjective feeling ok walking halls Vital Signs Vital Signs Date Time Temp Pulse Resp B/P (MAP) Pulse Ox O2 Delivery O2 Flow Rate FiO2 02/26/22 11:00 99.1 76 18 158/93 (114) 95 Nasal Cannula 2.0 99.1 I&O Intake and Output 02/26/22 07:00 Intake Total 240 ml Balance 240 ml Intake Oral 240 ml # Voids 2 General: Alert, Oriented X3, Cooperative Abdomen: Soft Labs Laboratory Tests Test 02/25/22 05:30 Sodium Level 137 mmol/L (136-145) Potassium Level 4.4 mmol/L (3.5-5.1) Chloride Level 103 mmol/L (98-107) Carbon Dioxide Level 27 mmol/L (21-32) Anion Gap 7 (6-14) Blood Urea Nitrogen 10 mg/dL (8-26) Creatinine 0.8 mg/dL (0.7-1.3) Estimated GFR (Cockcroft-Gault) 120.1 Glucose Level 137 mg/dL (70-99) Calcium Level 8.9 mg/dL (8.5-10.1) Phosphorus Level 3.3 mg/dL (2.6-4.7) Magnesium Level 2.3 mg/dL (1.8-2.4) Problem List Problems Medical Problems: (1) Failure of outpatient treatment Status: Acute (2) Intractable abdominal pain Status: Acute (3) Ketonuria Status: Acute (4) Leukocytosis Status: Acute Assessment/Plan tpn will review surgical plans with Dr Teixeira Justicifation of Admission Dx: Justifications for Admission: Justification of Admission Dx: Yes JULIANA TEIXEIRA MD 02/26/221939: SURGICAL PROGRESS NOTE Assessment/Plan Pt seen and examined. Agree with Ms. Selby's note Pt feels better, trying to eat abd soft, ND, NTTP ADAT and try work towards d/c plan distal pancreatectomy and splenectomy in 6 weeks or so. GAURAV SELBY Lorena STRUCTURES ENGINEER Feb 26, 2022 12:01 JULIANA TEIXEIRA MD Feb 26, 2022 19:40
[2022-02-26 15:00] VITALS: BP 146/88
[2022-02-26] MEDS: cefTRIAXone IV Push 2 GM VIAL. IVP SCH (17:33)
[2022-02-26 19:25] VITALS: BP 143/88
[2022-02-26] MEDS: LOSARTAN POTASSIUM 50 MG TABLET. PO SCH (21:04)
[2022-02-26] MEDS ORDERED: AMINO ACID IV SCH (22:00)
[2022-02-26] MEDS ORDERED: DEXTROSE 70% IV SCH (22:00)
[2022-02-26] MEDS ORDERED: [UNRECOGNIZED DRUG - OTHER] IV SCH (22:00)
[2022-02-26] MEDS ORDERED: TOTAL PARENTERAL NUTRITION IV SCH (22:00)
[2022-02-26 23:33] VITALS: BP 176/109
[2022-02-27 03:23] VITALS: BP 146/88
[2022-02-27] MEDS: oxyCODONE/APAP 5/325 1 TAB TABLET PO PRN ×2 (03:43→11:13)
[2022-02-27] MEDS: ACETAMINOPHEN 325 MG TABLET. PO PRN (03:44)
[2022-02-27] MEDS: HEPARIN for SUB-Q USE 5,000 UNIT/ML VIAL. SQ SCH ×3 (05:24→20:44)
[2022-02-27 07:00] VITALS: BP 144/95
[2022-02-27] MEDS: FINASTERIDE 5 MG TABLET. PO SCH (08:28)
[2022-02-27] MEDS: PANTOPRAZOLE IV PUSH 40 MG VIAL. IVP SCH (08:28)
[2022-02-27] MEDS: SENNOSIDES/DOCUSATE 8.6/50MG TABLET. PO SCH ×2 (08:28→20:44)
[2022-02-27] MEDS: ASPIRIN CHEWABLE 81 MG TABLET. PO SCH (08:28)
--- NOTE | 2022-02-27 10:24 | PDOC ---
Date of Service: DATE: 02/27/22 TIME: 10:22 Subjective: Subjective: Ate some potatoes and eggs, had half an apple last night. Would like to go home - wants to work in yard. Feels full quickly. Objective: Objective: On TPN, IV atbx. Surgery recs: plan distal pancreatectomy and splenectomy in 6 weeks or so. Vital Signs: Vital Signs Date Time Temp Pulse Resp B/P (MAP) Pulse Ox O2 Delivery O2 Flow Rate FiO2 02/27/22 08:00 Room Air 02/27/22 07:00 97.9 95 18 144/95 (111) 95 97.9 02/26/22 20:00 2.5 PE: GEN: NAD LUNGS: CTAB HEART: RRR ABD: S/ND/NT NEURO/PSYCH: A & O 3 A/P: Pancreatic tail abscess - past biopsy of cyst c/w microcystic adenoma - surgery plans as above -- Stable GI-burnette. Justicifation of Admission Dx: Justifications for Admission: Justification of Admission Dx: Yes REMBERTO CARDENAS Feb 27, 2022 10:24
[2022-02-27 11:00] VITALS: BP 151/90
--- NOTE | 2022-02-27 11:21 | PDOC ---
[employer] PROGRESS NOTE Date of Service DOS: DATE: 02/27/22 TIME: 11:19 Chief Complaint Chief Complaint Pancreatitis with fluid collection, partial splenic vein thrombosis. 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 Constipation Sepsis Failure to thrive History of Present Illness History of Present Illness 02/27/2022 No acute events overnight. Patient seen examined bedside. Tolerated some of hi s breakfast without any nausea or vomiting. Still on IV TPN and IV Rocephin. Possible surgery in 6 weeks or so. This will be a distal pancreatectomy. Pathology apparently showed cyst consistent with microcystic adenoma. Patient's chart, labs, images were reviewed and discussed with RN 02/26/2022 Patient seen and examined Discussed with RN Chart reviewed He is still on TPN 02/25/2022 Patient seen and examined Discussed with RN Chart reviewed Discussed with case management He is currently on TPN Mr Doyle is a 57 yo male who presents with several days of periumbilical abdominal pain radiating through to the back. Associated with nausea but no vomiting. 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 No other masses appreciated. Curiously, he describes a history of back in 2012 where he had a similar cyst that was asymptomatic but found incidentally on imaging and was drained with what sounds like endoscopic ultrasound. He had no further symptoms or problems until now. He does not have any risk factors for pancreatitis. He does not have a history of gallstones or biliary disease and does not drink alcohol. He is not taking any medicines which are associated with pancreatitis. Normally he denies any significant chronic GI complaints such as pain, nausea or indigestion. 02/16 patient evaluated examined at bedside. Complaining of ongoing abdominal pain. However much more controlled. IR consult pending. Informed patient may not be able to be seen by them until Friday as not an emergency and he understands this. Continue current otherwise. 02/17: Patient evaluated examined at bedside. Reported pain about the same well- controlled pain meds but will wear off in a fair bit of pain. GI consulted to today much appreciate the very thorough assessment. IR consult patient agreeable to drainage if deemed good option. 02/18: Febrile 102.1 F overnight. Still with significant pain 9 out of 10 with deep inspiration in his left upper quadrant and into his back and left flank. Tolerating Zosyn IV. CT abdomen pelvis upon my interpretation fluid collection in the tail of the pancreas 7.3 x 6.3 x 6.8 cm pancreatic inflammation. Multiple renal cysts, prostatomegaly. Splenic vein branch appeared ccluded on CT but ultrasound showed Doppler flow. Discussed with GI who discussed with interventional radiology EUS would be appropriate we do not have this ability at our facility and patient wishes for referral to [facility] or [facility] 02/19: Febrile to 100.7 F overnight. Feels like Percocet is covering his pain a little bit but fentanyl is wearing off still with splinting on deep inspiration. Will change IV medications to Dilaudid every 3 hours as needed and consult infectious diseases, changed to Carbapenem. 02/20: T-max 100 F last 24 hours. N.p.o. for consideration of cyst drainage with interventional radiology today WBC still elevated at 14.7. 02/21: Afebrile overnight. Had significantly more pain after is percutaneous drain by IR increase to 2 mg of Dilaudid. Still has very little appetite only thing is asking for his coffee PICC and TPN ordered we will consult general surgery. His [facility] records arrived from 2014 when he previously had EUS. 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 At the time ampulla and CBD appeared normal with no evidence of dilation. CEA at that time was 17.9 he was recommended to follow-up with GI and surgery in clinic 02/22: PICC in place now on TPN. Pain is improved his appetite has not. Had consultation with general surgery for consideration of distal pancreatectomy c holecystectomy and splenectomy which he will look into outpatient. Pending cultures from pancreatic cyst aspiration currently. Plan will be to tailor antibiotics toward this and go home on TPN until follow-up with general surgery in 2 weeks and will need to await final culture results prior to discharge planning 02/23: Afebrile overnight. On TPN. Pancreatic cyst aspiration culture growing Klebsiella Variicola, largely pansensitive. Continue meropenem for now, per ID. Patient does confirm that he has an appointment with Dr. Chong for outpatient cholecystectomy and pancreatic resection. He remains on TPN, with no appetite. 02/24: Had a headache overnight not remitted with Tylenol and ultimately received Dilaudid though he feels like he has had no abdominal pain. Will order as needed Toradol. Still on TPN discussed with ID for repeat CT abdomen pelvis to reassess abscess to consider outpatient IV antibiotics versus p.o. antibiotics. Still with no appetite and requiring TPN Vitals/I&O Vitals/I&O: Vital Signs Date Time Temp Pulse Resp B/P (MAP) Pulse Ox O2 Delivery O2 Flow Rate FiO2 02/27/22 11:13 Room Air 02/27/22 07:00 97.9 95 18 144/95 (111) 95 97.9 02/26/22 20:00 2.5 I & O 02/26/22 02/26/22 02/27/22 15:00 23:00 07:00 Intake Total 480 ml Balance 480 ml Physical Exam Physical Exam: GENERAL: Well-developed, well-nourished, alert, oriented x3 male, lying in bed comfortably, in no acute distress. HEENT: Normocephalic, atraumatic. Anicteric. No thrush. Oral mucosa moist. NECK: Supple, no JVD. LUNGS: Clear bilaterally. No wheezing. HEART: S1, S2. No murmurs. ABDOMEN: Mildly distended. Bowel sounds present. Nontender No rebound, no guarding. EXTREMITIES: No edema, no cyanosis. DERMATOLOGIC: Warm, dry, no generalized rash. NEUROLOGIC: Alert, oriented x3, grossly nonfocal. PSYCHIATRIC: Calm and cooperative. General: Alert, Oriented X3, Cooperative Heart: Regular rate, Normal S1, Normal S2 Lungs: Clear Abdomen: Soft Extremities: No clubbing, No cyanosis Skin: No rashes, No breakdown Assessment and Plan Assessmemt and Plan Problems Medical Problems: (1) Failure of outpatient treatment Status: Acute (2) Intractable abdominal pain Status: Acute (3) Ketonuria Status: Acute (4) Leukocytosis Status: Acute Comment Review of Relevant I have reviewed the following items dalia (where applicable) has been applied. Medications: Current Medications Medications (Trade) Dose Ordered Sig/Chirag Route PRN Reason Start Time Stop Time Status Last Admin Dose Admin Sodium Chloride 90 meq/Potassium Phosphate 10 mmol/ Magnesium Sulfate 2.5 meq/ Multivitamins 10 ml/Zinc/Copper/ Manganese/ Selenium 1 ml/ Total Parenteral Nutrition/Amino Acids/Dextrose/ Fat Emulsion Intravenous 1,512 ml @ 63 mls/hr TPN CONT IV 02/26/22 22:00 02/27/22 21:59 02/26/22 20:56 Justifications for Admission Other Justification MARY HENRY MD Feb 27, 2022 11:21
--- NOTE | 2022-02-27 12:37 | PDOC ---
Infectious Disease Note Subjective Subjective Patient without complaints Denies any abdominal pain Tolerating meropenem well No fever, nausea, vomiting, diarrhea, shortness of breath or cough ROS ROS No nausea vomiting diarrhea Vital Sign Vital Signs Vital Signs Date Time Temp Pulse Resp B/P (MAP) Pulse Ox O2 Delivery O2 Flow Rate FiO2 02/27/22 11:43 Room Air 02/27/22 11:00 98.3 86 18 151/90 (110) 95 98.3 02/26/22 20:00 2.5 Physical Exam PHYSICAL EXAM GENERAL: Well-developed, well-nourished, alert, oriented x3 male, lying in bed comfortably, in no acute distress. HEENT: Normocephalic, atraumatic. Anicteric. No thrush. Oral mucosa moist. NECK: Supple, no JVD. LUNGS: Clear bilaterally. No wheezing. HEART: S1, S2. No murmurs. ABDOMEN: Mildly distended. Bowel sounds present. Nontender No rebound, no guarding. EXTREMITIES: No edema, no cyanosis. DERMATOLOGIC: Warm, dry, no generalized rash. NEUROLOGIC: Alert, oriented x3, grossly nonfocal. PSYCHIATRIC: Calm and cooperative. Labs Micro Microbiology 02/19/22 Gram Stain - Final, Resulted 02/19/22 Aerobic and Anaerobic Culture - Preliminary, Resulted Klebsiella Variicola 02/19/22 Blood Culture - Preliminary, Resulted NO GROWTH AFTER 3 DAYS 02/15/22 Urine Culture - Final, Complete Objective Assessment 1. Fever.pattern improving 2. Leukocytosis. Improving 3. Intractable abdominal pain, 4. Pancreatitis with fluid collection, partial splenic vein thrombosis. Status post IR drainage [id number], 100% PMNs Cultures negative so far 4. Shortness of breath, likely reactive from pancreatitis. 5. Constipation. Plan Plan of Care Continue ceftriaxone// Cont supportive care Patient continues on TPN Awaiting discharge on TPN Awaiting surgery last week off February Discussed with RN Repeat CAT scan seen abscess is still 6 x 5 cm Would discharge patient on IV Invanz for at least 2 weeks or so and then oral to be able to get to surgery since surgery is not planned for at least 6 weeks Also since his splenectomy has been planned I would give vaccinations now MANISH GORDILLO MD Feb 27, 2022 12:37
[2022-02-27] MEDS: TPN PER PHARMACY MC PRN (14:29)
--- NOTE | 2022-02-27 14:29 | NUR ---
Pharmacy TPN Dosing Note S: BRISSA PENA is a 57 year old M Currently receiving TPN started 02/21/22 B:Pertinent PMH: pancreatitis Height: 5 feet, 6 inches Weight: 117.526541 kg Current diet: REGULAR LABS: Sodium: 137 Potassium: 4.4 Chloride: 103 Calcium: 8.9 Corrected Calcium: 9.94 Magnesium: 2.3 CO2: 27 SCr: 0.8 Glucose: 137 Albumin: 2.7 AST: 35 ALT: 40 TPN FORMULA: TPN TYPE: AMINO ACIDS: 75 gm DEXTROSE: 235 gm LIPIDS: 30 gm SODIUM CHLORIDE: 90 mEq POTASSIUM PHOSPHATE: 10 mmol MAGNESIUM: 2.5 mEq MULTIPLE VITAMIN: 10 ml TRACE ELEMENTS: 1ml ml(s) TPN PLAN: Continue same TPN. No new labs. R: Continue TPN Will monitor electrolytes, glucose, and tolerance to TPN. GAIL LANDEROS [facility], 02/27/22 1949
[2022-02-27 15:00] VITALS: BP 147/88
--- NOTE | 2022-02-27 15:09 | PDOC ---
SURGICAL PROGRESS NOTE DATE: 02/27/22 TIME: 15:07 Subjective Pt without new c/o, kennedi some PO, but gets full easily Vital Signs Vital Signs Date Time Temp Pulse Resp B/P (MAP) Pulse Ox O2 Delivery O2 Flow Rate FiO2 02/27/22 11:43 Room Air 02/27/22 11:00 98.3 86 18 151/90 (110) 95 98.3 02/26/22 20:00 2.5 I&O Intake and Output 02/27/22 07:00 Intake Total 480 ml Balance 480 ml Intake Oral 480 ml # Voids 4 General: Alert, Oriented X3, Cooperative, No acute distress Abdomen: Soft, No tenderness Problem List Problems Medical Problems: (1) Failure of outpatient treatment Status: Acute (2) Intractable abdominal pain Status: Acute (3) Ketonuria Status: Acute (4) Leukocytosis Status: Acute Assessment/Plan pancreatic cyst appears to be improving ADAT, encourage small frequent meals will plan distal pancreatectomy/splenectomy elective within next few weeks agree with mennigiococcus, pneumococcus vaccines to be given now, defer to ID. Justicifation of Admission Dx: Justifications for Admission: Justification of Admission Dx: Yes JULIANA EM MD Feb 27, 2022 15:09
[2022-02-27] MEDS: cefTRIAXone IV Push 2 GM VIAL. IVP SCH (17:01)
[2022-02-27 19:00] VITALS: BP 140/84
[2022-02-27] MEDS: LOSARTAN POTASSIUM 50 MG TABLET. PO SCH (20:44)
[2022-02-27] MEDS ORDERED: AMINO ACID IV SCH (22:00)
[2022-02-27] MEDS ORDERED: [UNRECOGNIZED DRUG - OTHER] IV SCH (22:00)
[2022-02-27] MEDS ORDERED: TOTAL PARENTERAL NUTRITION IV SCH (22:00)
[2022-02-27] MEDS ORDERED: DEXTROSE 70% IV SCH (22:00)
[2022-02-27 23:00] VITALS: BP 149/98
[2022-02-28 03:10] VITALS: BP 117/69
[2022-02-28] MEDS: HEPARIN for SUB-Q USE 5,000 UNIT/ML VIAL. SQ SCH ×3 (05:36→22:00)
[2022-02-28 06:52] LABS: ALBUMIN 3.1 g/dL (3.4-5.0); ALBUMIN/GLOBULIN RATIO 0.6 (1.0-1.7); CALCIUM 8.7 mg/dL (8.5-10.1); CREATININE 0.8 mg/dL (0.7-1.3); GFR 120.1; MAGNESIUM 2.3 mg/dL (1.8-2.4); PHOSPHORUS 2.9 mg/dL (2.6-4.7); POTASSIUM 3.9 mmol/L (3.5-5.1); TOTAL BILIRUBIN 0.2 mg/dL (0.2-1.0); TOTAL PROTEIN 8.1 g/dL (6.4-8.2)
[2022-02-28 07:00] VITALS: BP 163/76
[2022-02-28] MEDS: FINASTERIDE 5 MG TABLET. PO SCH (08:17)
[2022-02-28] MEDS: ASPIRIN CHEWABLE 81 MG TABLET. PO SCH (08:17)
[2022-02-28] MEDS: PANTOPRAZOLE IV PUSH 40 MG VIAL. IVP SCH (08:17)
[2022-02-28] MEDS: SENNOSIDES/DOCUSATE 8.6/50MG TABLET. PO SCH ×2 (08:18→21:00)
[2022-02-28] MEDS ORDERED: HAEMOPH B POLY CONJ TET TOX VAX IM ONE (09:00)
[2022-02-28] MEDS ORDERED: PNEUMOC VACCINE 13-VALENT 0.5 ML DISP.SYRIN. VAX IM ONE (09:00)
[2022-02-28] MEDS ORDERED: [UNRECOGNIZED DRUG - OTHER] VAX IM ONE (09:00)
[2022-02-28] MEDS ORDERED: [UNRECOGNIZED DRUG - OTHER] VAX IM ONE (09:00)
--- NOTE | 2022-02-28 09:47 | PDOC ---
SURGICAL PROGRESS NOTE DATE: 02/28/22 TIME: 09:45 Subjective Pt with c/o some bloating and discomfort with eating, but previous pain resolved. Danitza half meals and passing stools. Vital Signs Vital Signs Date Time Temp Pulse Resp B/P (MAP) Pulse Ox O2 Delivery O2 Flow Rate FiO2 02/28/22 07:00 98.2 90 18 163/76 (105) 95 Room Air 98.2 02/27/22 19:40 2.0 I&O Intake and Output 02/28/22 07:00 Intake Total 700 ml Balance 700 ml Intake Oral 700 ml # Voids 2 # Bowel Movements 3 General: Alert, Oriented X3, Cooperative, No acute distress Abdomen: Soft, No tenderness Labs Laboratory Tests Test 02/28/22 06:20 Sodium Level 139 mmol/L (136-145) Potassium Level 3.9 mmol/L (3.5-5.1) Chloride Level 103 mmol/L (98-107) Carbon Dioxide Level 27 mmol/L (21-32) Anion Gap 9 (6-14) Blood Urea Nitrogen 11 mg/dL (8-26) Creatinine 0.8 mg/dL (0.7-1.3) Estimated GFR (Cockcroft-Gault) 120.1 BUN/Creatinine Ratio 14 (6-20) Glucose Level 145 mg/dL (70-99) Calcium Level 8.7 mg/dL (8.5-10.1) Phosphorus Level 2.9 mg/dL (2.6-4.7) Magnesium Level 2.3 mg/dL (1.8-2.4) Total Bilirubin 0.2 mg/dL (0.2-1.0) Aspartate Amino Transf (AST/SGOT) 67 U/L (15-37) Alanine Aminotransferase (ALT/SGPT) 102 U/L (16-63) Alkaline Phosphatase 63 U/L (46-116) Total Protein 8.1 g/dL (6.4-8.2) Albumin 3.1 g/dL (3.4-5.0) Albumin/Globulin Ratio 0.6 (1.0-1.7) Laboratory Tests Test 02/28/22 06:20 Sodium Level 139 mmol/L (136-145) Potassium Level 3.9 mmol/L (3.5-5.1) Chloride Level 103 mmol/L (98-107) Carbon Dioxide Level 27 mmol/L (21-32) Anion Gap 9 (6-14) Blood Urea Nitrogen 11 mg/dL (8-26) Creatinine 0.8 mg/dL (0.7-1.3) Estimated GFR (Cockcroft-Gault) 120.1 BUN/Creatinine Ratio 14 (6-20) Glucose Level 145 mg/dL (70-99) Calcium Level 8.7 mg/dL (8.5-10.1) Phosphorus Level 2.9 mg/dL (2.6-4.7) Magnesium Level 2.3 mg/dL (1.8-2.4) Total Bilirubin 0.2 mg/dL (0.2-1.0) Aspartate Amino Transf (AST/SGOT) 67 U/L (15-37) Alanine Aminotransferase (ALT/SGPT) 102 U/L (16-63) Alkaline Phosphatase 63 U/L (46-116) Total Protein 8.1 g/dL (6.4-8.2) Albumin 3.1 g/dL (3.4-5.0) Albumin/Globulin Ratio 0.6 (1.0-1.7) Problem List Problems Medical Problems: (1) Failure of outpatient treatment Status: Acute (2) Intractable abdominal pain Status: Acute (3) Ketonuria Status: Acute (4) Leukocytosis Status: Acute Assessment/Plan pancreatic cyst OK to stop TPN agree with vaccines and these have been ordered OK to work towards d/c and will follow up in office to plan surgery. Justicifation of Admission Dx: Justifications for Admission: Justification of Admission Dx: Yes JULIANA EM MD Feb 28, 2022 09:47
--- NOTE | 2022-02-28 10:18 | PDOC ---
Date of Service: DATE: 02/28/22 TIME: 10:16 Subjective: Subjective: Feels full after eating small amounts (about half his meals). Really wants to go home. Objective: Vital Signs: Vital Signs Date Time Temp Pulse Resp B/P (MAP) Pulse Ox O2 Delivery O2 Flow Rate FiO2 02/28/22 07:00 98.2 90 18 163/76 (105) 95 Room Air 98.2 02/27/22 19:40 2.0 Labs: Laboratory Tests Test 02/28/22 06:20 Sodium Level 139 mmol/L Potassium Level 3.9 mmol/L Chloride Level 103 mmol/L Carbon Dioxide Level 27 mmol/L Anion Gap 9 Blood Urea Nitrogen 11 mg/dL Creatinine 0.8 mg/dL Estimated GFR (Cockcroft-Gault) 120.1 BUN/Creatinine Ratio 14 Glucose Level 145 mg/dL Calcium Level 8.7 mg/dL Phosphorus Level 2.9 mg/dL Magnesium Level 2.3 mg/dL Total Bilirubin 0.2 mg/dL Aspartate Amino Transf (AST/SGOT) 67 U/L Alanine Aminotransferase (ALT/SGPT) 102 U/L Alkaline Phosphatase 63 U/L Total Protein 8.1 g/dL Albumin 3.1 g/dL Albumin/Globulin Ratio 0.6 PE: GEN: NAD LUNGS: CTAB HEART: RRR ABD: non-tender, soft NEURO/PSYCH: A & O 3 A/P: Pancreatic tail abscess - h/o microcystic adenoma -- Tolerating some PO and has TPN, on IV atbx per ID, plans for surgery (after discharge). Awaiting DC plans. Justicifation of Admission Dx: Justifications for Admission: Justification of Admission Dx: Yes REMBERTO CARDENAS Feb 28, 2022 10:18
[2022-02-28 11:00] VITALS: BP 171/107
--- NOTE | 2022-02-28 11:25 | PDOC ---
[employer] PROGRESS NOTE Date of Service DOS: DATE: 02/28/22 TIME: 11:24 Chief Complaint Chief Complaint Pancreatitis with fluid collection, partial splenic vein thrombosis. 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 Constipation Sepsis Failure to thrive History of Present Illness History of Present Illness 02/28/2022 No acute events overnight. Patient seen examined bedside. Patient complaining of headaches when taking losartan. I have discontinued this and started him on amlodipine and hydrochlorothiazide. Patient tolerating half of his meals. TPN will be stopped and only he will need long-term IV antibiotics as there is persistent abscess in the pancreas. Social work trying to attempt outpatient antibiotic IV infusion with Invanz. Patient's chart, labs, images were reviewed and discussed with RN 02/27/2022 No acute events overnight. Patient seen examined bedside. Tolerated some of his breakfast without any nausea or vomiting. Still on IV TPN and IV Rocephin. Possible surgery in 6 weeks or so. This will be a distal pancreatectomy. Pathology apparently showed cyst consistent with microcystic adenoma. Patient's chart, labs, images were reviewed and discussed with RN 02/26/2022 Patient seen and examined Discussed with RN Chart reviewed He is still on TPN 02/25/2022 Patient seen and examined Discussed with RN Chart reviewed Discussed with case management He is currently on TPN Mr Doyle is a 57 yo male who presents with several days of periumbilical abdominal pain radiating through to the back. Associated with nausea but no vomiting. 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 No other masses appreciated. Curiously, he describes a history of back in 2012 where he had a similar cyst that was asymptomatic but found incidentally on imaging and was drained with what sounds like endoscopic ultrasound. He had no further symptoms or problems until now. He does not have any risk factors for pancreatitis. He does not have a history of gallstones or biliary disease and does not drink alcohol. He is not taking any medicines which are associated with pancreatitis. Normally he denies any significant chronic GI complaints such as pain, nausea or indigestion. 02/16 patient evaluated examined at bedside. Complaining of ongoing abdominal pain. However much more controlled. IR consult pending. Informed patient may not be able to be seen by them until Joel as not an emergency and he understands this. Continue current otherwise. 02/17: Patient evaluated examined at bedside. Reported pain about the same well- controlled pain meds but will wear off in a fair bit of pain. GI consulted to today much appreciate the very thorough assessment. IR consult patient agreeable to drainage if deemed good option. 02/18: Febrile 102.1 F overnight. Still with significant pain 9 out of 10 with deep inspiration in his left upper quadrant and into his back and left flank. Tolerating Zosyn IV. CT abdomen pelvis upon my interpretation fluid collection in the tail of the pancreas 7.3 x 6.3 x 6.8 cm pancreatic inflammation. Multiple renal cysts, prostatomegaly. Splenic vein branch appeared ccluded on CT but ultrasound showed Doppler flow. Discussed with GI who discussed with interventional radiology EUS would be appropriate we do not have this ability at our facility and patient wishes for referral to [facility] or [facility] 02/19: Febrile to 100.7 F overnight. Feels like Percocet is covering his pain a little bit but fentanyl is wearing off still with splinting on deep inspiration. Will change IV medications to Dilaudid every 3 hours as needed and consult infectious diseases, changed to Carbapenem. 02/20: T-max 100 F last 24 hours. N.p.o. for consideration of cyst drainage with interventional radiology today WBC still elevated at 14.7. 02/21: Afebrile overnight. Had significantly more pain after is percutaneous drain by IR increase to 2 mg of Dilaudid. Still has very little appetite only thing is asking for his coffee PICC and TPN ordered we will consult general surgery. His [facility] records arrived from 2014 when he previously had EUS. 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 At the time ampulla and CBD appeared normal with no evidence of dilation. CEA at that time was 17.9 he was recommended to follow-up with GI and surgery in clinic 02/22: PICC in place now on TPN. Pain is improved his appetite has not. Had consultation with general surgery for consideration of distal pancreatectomy cholecystectomy and splenectomy which he will look into outpatient. Pending cultures from pancreatic cyst aspiration currently. Plan will be to tailor antibiotics toward this and go home on TPN until follow-up with general surgery in 2 weeks and will need to await final culture results prior to discharge planning 02/23: Afebrile overnight. On TPN. Pancreatic cyst aspiration culture growing Klebsiella Variicola, largely pansensitive. Continue meropenem for now, per ID. Patient does confirm that he has an appointment with Dr. Chong for outpatient cholecystectomy and pancreatic resection. He remains on TPN, with no appetite. 02/24: Had a headache overnight not remitted with Tylenol and ultimately received Dilaudid though he feels like he has had no abdominal pain. Will order as needed Toradol. Still on TPN discussed with ID for repeat CT abdomen pelvis to reassess abscess to consider outpatient IV antibiotics versus p.o. antibiotics. Still with no appetite and requiring TPN Vitals/I&O Vitals/I&O: Vital Signs Date Time Temp Pulse Resp B/P (MAP) Pulse Ox O2 Delivery O2 Flow Rate FiO2 02/28/22 11:00 98.1 90 16 171/107 (128) 97 Room Air 98.1 02/27/22 19:40 2.0 I & O 02/27/22 02/27/22 02/28/22 15:00 23:00 07:00 Intake Total 700 ml Balance 700 ml Physical Exam Physical Exam: GENERAL: Well-developed, well-nourished, alert, oriented x3 male, lying in bed comfortably, in no acute distress. HEENT: Normocephalic, atraumatic. Anicteric. No thrush. Oral mucosa moist. NECK: Supple, no JVD. LUNGS: Clear bilaterally. No wheezing. HEART: S1, S2. No murmurs. ABDOMEN: Mildly distended. Bowel sounds present. Nontender No rebound, no guarding. EXTREMITIES: No edema, no cyanosis. DERMATOLOGIC: Warm, dry, no generalized rash. NEUROLOGIC: Alert, oriented x3, grossly nonfocal. PSYCHIATRIC: Calm and cooperative. General: Alert, Oriented X3, Cooperative, No acute distress Heart: Regular rate, Normal S1, Normal S2 Lungs: Clear Abdomen: Soft, No tenderness Extremities: No clubbing, No cyanosis Skin: No rashes, No breakdown Labs Labs: Laboratory Tests Test 02/28/22 06:20 Sodium Level 139 mmol/L (136-145) Potassium Level 3.9 mmol/L (3.5-5.1) Chloride Level 103 mmol/L (98-107) Carbon Dioxide Level 27 mmol/L (21-32) Anion Gap 9 (6-14) Blood Urea Nitrogen 11 mg/dL (8-26) Creatinine 0.8 mg/dL (0.7-1.3) Estimated GFR (Cockcroft-Gault) 120.1 BUN/Creatinine Ratio 14 (6-20) Glucose Level 145 mg/dL (70-99) Calcium Level 8.7 mg/dL (8.5-10.1) Phosphorus Level 2.9 mg/dL (2.6-4.7) Magnesium Level 2.3 mg/dL (1.8-2.4) Total Bilirubin 0.2 mg/dL (0.2-1.0) Aspartate Amino Transf (AST/SGOT) 67 U/L (15-37) Alanine Aminotransferase (ALT/SGPT) 102 U/L (16-63) Alkaline Phosphatase 63 U/L (46-116) Total Protein 8.1 g/dL (6.4-8.2) Albumin 3.1 g/dL (3.4-5.0) Albumin/Globulin Ratio 0.6 (1.0-1.7) Assessment and Plan Assessmemt and Plan Problems Medical Problems: (1) Failure of outpatient treatment Status: Acute (2) Intractable abdominal pain Status: Acute (3) Ketonuria Status: Acute (4) Leukocytosis Status: Acute Comment Review of Relevant I have reviewed the following items dalia (where applicable) has been applied. Medications: Current Medications Medications (Trade) Dose Ordered Sig/Chirag Route PRN Reason Start Time Stop Time Status Last Admin Dose Admin Sodium Chloride 90 meq/Potassium Phosphate 10 mmol/ Magnesium Sulfate 2.5 meq/ Multivitamins 10 ml/Zinc/Copper/ Manganese/ Selenium 1 ml/ Total Parenteral Nutrition/Amino Acids/Dextrose/ Fat Emulsion Intravenous 1,512 ml @ 63 mls/hr TPN CONT IV 02/27/22 22:00 02/28/22 21:59 02/27/22 20:44 Justifications for Admission Other Justification MARY HENRY MD Feb 28, 2022 11:25
[2022-02-28] MEDS: hydroCHLOROthiazide 12.5 MG TABLET PO SCH (12:35)
--- NOTE | 2022-02-28 13:12 | PDOC ---
Infectious Disease Note Subjective Subjective Patient without complaints Denies any abdominal pain Tolerating meropenem well No fever, nausea, vomiting, diarrhea, shortness of breath or cough ROS ROS no n/v/d/ Vital Sign Vital Signs Vital Signs Date Time Temp Pulse Resp B/P (MAP) Pulse Ox O2 Delivery O2 Flow Rate FiO2 02/28/22 12:36 90 155/96 02/28/22 11:00 98.1 16 97 Room Air 98.1 02/27/22 19:40 2.0 Physical Exam PHYSICAL EXAM GENERAL: Well-developed, well-nourished, alert, oriented x3 male, lying in bed comfortably, in no acute distress. HEENT: Normocephalic, atraumatic. Anicteric. No thrush. Oral mucosa moist. NECK: Supple, no JVD. LUNGS: Clear bilaterally. No wheezing. HEART: S1, S2. No murmurs. ABDOMEN: Mildly distended. Bowel sounds present. Nontender No rebound, no guarding. EXTREMITIES: No edema, no cyanosis. DERMATOLOGIC: Warm, dry, no generalized rash. NEUROLOGIC: Alert, oriented x3, grossly nonfocal. PSYCHIATRIC: Calm and cooperative. Labs Lab Laboratory Tests Test 02/28/22 06:20 Sodium Level 139 mmol/L (136-145) Potassium Level 3.9 mmol/L (3.5-5.1) Chloride Level 103 mmol/L (98-107) Carbon Dioxide Level 27 mmol/L (21-32) Anion Gap 9 (6-14) Blood Urea Nitrogen 11 mg/dL (8-26) Creatinine 0.8 mg/dL (0.7-1.3) Estimated GFR (Cockcroft-Gault) 120.1 BUN/Creatinine Ratio 14 (6-20) Glucose Level 145 mg/dL (70-99) Calcium Level 8.7 mg/dL (8.5-10.1) Phosphorus Level 2.9 mg/dL (2.6-4.7) Magnesium Level 2.3 mg/dL (1.8-2.4) Total Bilirubin 0.2 mg/dL (0.2-1.0) Aspartate Amino Transf (AST/SGOT) 67 U/L (15-37) Alanine Aminotransferase (ALT/SGPT) 102 U/L (16-63) Alkaline Phosphatase 63 U/L (46-116) Total Protein 8.1 g/dL (6.4-8.2) Albumin 3.1 g/dL (3.4-5.0) Albumin/Globulin Ratio 0.6 (1.0-1.7) Micro Microbiology 02/19/22 Gram Stain - Final, Resulted 02/19/22 Aerobic and Anaerobic Culture - Preliminary, Resulted Klebsiella Variicola 02/19/22 Blood Culture - Preliminary, Resulted NO GROWTH AFTER 3 DAYS 02/15/22 Urine Culture - Final, Complete Objective Assessment 1. Fever.pattern improving 2. Leukocytosis. Improving 3. Intractable abdominal pain, 4. Pancreatitis with fluid collection, partial splenic vein thrombosis. Status post IR drainage [id number], 100% PMNs Cultures negative so far 4. Shortness of breath, likely reactive from pancreatitis. 5. Constipation. Plan Plan of Care Cont supportive care Patient continues on TPN Awaiting discharge on TPN Awaiting surgery last week off February Discussed with RN Repeat CAT scan seen abscess is still 6 x 5 cm Would discharge patient on IV Invanz for at least 2 weeks or so and then oral to be able to get to surgery since surgery is not planned for at least 6 weeks Also since his splenectomy has been planned I would give vaccinations now MANISH GORDILLO MD Feb 28, 2022 13:12
[2022-02-28] MEDS ORDERED: ERTAPENEM 1 GM in IV NORMAL SALINE 50ML 50 ML IV ONE (14:00)
[2022-02-28 15:00] VITALS: BP 155/90
[2022-02-28 19:00] VITALS: BP 148/84
[2022-02-28] MEDS: ACETAMINOPHEN 325 MG TABLET. PO PRN (20:16)
[2022-02-28 23:00] VITALS: BP 132/98
[2022-03-01] MEDS: KETOROLAC 30 MG/ML VIAL. IVP PRN (01:01)
[2022-03-01 03:00] VITALS: BP 150/90
--- NOTE | 2022-03-01 05:03 | NUR ---
patient still complaining of headache and requesting to make a note for his attending MD to consider sleep study and cardiology consult, he stated years ago he had seen a cardiology in the past and heart some heart procedure ( heart cath ? maybe). Will inform Doctor in Am.
[2022-03-01] MEDS: HEPARIN for SUB-Q USE 5,000 UNIT/ML VIAL. SQ SCH ×2 (05:13→14:00)
[2022-03-01 07:00] VITALS: BP 147/97
[2022-03-01] MEDS ORDERED: PANTOPRAZOLE 40 MG TABLET.DR. PO SCH (07:30)
[2022-03-01] MEDS: ASPIRIN CHEWABLE 81 MG TABLET. PO SCH (08:38)
[2022-03-01] MEDS: FINASTERIDE 5 MG TABLET. PO SCH (08:38)
[2022-03-01] MEDS: SENNOSIDES/DOCUSATE 8.6/50MG TABLET. PO SCH (08:39)
[2022-03-01] MEDS: hydroCHLOROthiazide 12.5 MG TABLET PO SCH (08:39)
--- NOTE | 2022-03-01 10:52 | PDOC ---
Date of Service: DATE: 03/01/22 TIME: 10:51 Subjective: Subjective: No complaints for me, wants to go home. Objective: Objective: D/w nurse - awaiting vaccines. Vital Signs: Vital Signs Date Time Temp Pulse Resp B/P (MAP) Pulse Ox O2 Delivery O2 Flow Rate FiO2 03/01/22 08:40 86 147/97 03/01/22 07:00 98.2 18 95 Room Air 98.2 PE: GEN: NAD LUNGS: CTAB HEART: RRR ABD: NABS, S/ND/NT NEURO/PSYCH: A & O 3 A/P: Pancreatic tail abscess - h/o microcystic adenoma -- Off TPN, on IV atbx. DC per primary, f/u w/ surgery as planned. Justicifation of Admission Dx: Justifications for Admission: Justification of Admission Dx: Yes REMBERTO CARDENAS Mar 01, 2022 10:52
[2022-03-01 11:00] VITALS: BP 161/95
--- NOTE | 2022-03-01 12:15 | PDOC ---
Infectious Disease Note Subjective Subjective Patient without complaints Denies any abdominal pain Tolerating meropenem well No fever, nausea, vomiting, diarrhea, shortness of breath or cough Vital Sign Vital Signs Vital Signs Date Time Temp Pulse Resp B/P (MAP) Pulse Ox O2 Delivery O2 Flow Rate FiO2 03/01/22 11:00 98.4 92 18 161/95 (117) 97 Room Air 98.4 Physical Exam PHYSICAL EXAM GENERAL: Well-developed, well-nourished, alert, oriented x3 male, lying in bed comfortably, in no acute distress. HEENT: Normocephalic, atraumatic. Anicteric. No thrush. Oral mucosa moist. NECK: Supple, no JVD. LUNGS: Clear bilaterally. No wheezing. HEART: S1, S2. No murmurs. ABDOMEN: Mildly distended. Bowel sounds present. Nontender No rebound, no guarding. EXTREMITIES: No edema, no cyanosis. DERMATOLOGIC: Warm, dry, no generalized rash. NEUROLOGIC: Alert, oriented x3, grossly nonfocal. PSYCHIATRIC: Calm and cooperative. Labs Micro Microbiology 02/19/22 Gram Stain - Final, Resulted 02/19/22 Aerobic and Anaerobic Culture - Preliminary, Resulted Klebsiella Variicola 02/19/22 Blood Culture - Preliminary, Resulted NO GROWTH AFTER 3 DAYS 02/15/22 Urine Culture - Final, Complete Objective Assessment 1. Fever.pattern improving 2. Leukocytosis. Improving 3. Intractable abdominal pain, 4. Pancreatitis with fluid collection, partial splenic vein thrombosis. Status post IR drainage [id number], 100% PMNs Cultures negative so far 4. Shortness of breath, likely reactive from pancreatitis. 5. Constipation. Plan Plan of Care Cont supportive care Patient continues on TPN Awaiting discharge on TPN Awaiting surgery last week off February Discussed with RN Repeat CAT scan seen abscess is still 6 x 5 cm Would discharge patient on IV Invanz for at least 2 weeks or so and then oral to be able to get to surgery since surgery is not planned for at least 6 weeks Also since his splenectomy has been planned I would give vaccinations now MANISH GORDILLO MD Mar 01, 2022 12:14
--- NOTE | 2022-03-01 13:12 | PDOC ---
SURGICAL PROGRESS NOTE DATE: 03/01/22 TIME: 13:11 Subjective Pt without c/o, kennedi PO Vital Signs Vital Signs Date Time Temp Pulse Resp B/P (MAP) Pulse Ox O2 Delivery O2 Flow Rate FiO2 03/01/22 11:00 98.4 92 18 161/95 (117) 97 Room Air 98.4 I&O Intake and Output 03/01/22 07:00 Intake Total 1400 ml Balance 1400 ml Intake Oral 1400 ml # Voids 4 General: Alert, Oriented X3, Cooperative, No acute distress Abdomen: Soft, No tenderness Labs Laboratory Tests Test 02/28/22 06:20 Sodium Level 139 mmol/L (136-145) Potassium Level 3.9 mmol/L (3.5-5.1) Chloride Level 103 mmol/L (98-107) Carbon Dioxide Level 27 mmol/L (21-32) Anion Gap 9 (6-14) Blood Urea Nitrogen 11 mg/dL (8-26) Creatinine 0.8 mg/dL (0.7-1.3) Estimated GFR (Cockcroft-Gault) 120.1 BUN/Creatinine Ratio 14 (6-20) Glucose Level 145 mg/dL (70-99) Calcium Level 8.7 mg/dL (8.5-10.1) Phosphorus Level 2.9 mg/dL (2.6-4.7) Magnesium Level 2.3 mg/dL (1.8-2.4) Total Bilirubin 0.2 mg/dL (0.2-1.0) Aspartate Amino Transf (AST/SGOT) 67 U/L (15-37) Alanine Aminotransferase (ALT/SGPT) 102 U/L (16-63) Alkaline Phosphatase 63 U/L (46-116) Total Protein 8.1 g/dL (6.4-8.2) Albumin 3.1 g/dL (3.4-5.0) Albumin/Globulin Ratio 0.6 (1.0-1.7) Problem List Problems Medical Problems: (1) Failure of outpatient treatment Status: Acute (2) Intractable abdominal pain Status: Acute (3) Ketonuria Status: Acute (4) Leukocytosis Status: Acute Assessment/Plan OK to d/c home f/u in office to plan pancreatectomy Justicifation of Admission Dx: Justifications for Admission: Justification of Admission Dx: Yes JULIANA EM MD Mar 01, 2022 13:12
[2022-03-01] MEDS ORDERED: ERTAPENEM 1 GM in IV NORMAL SALINE 50ML 50 ML IV ONE (14:00)
[2022-03-01] MEDS ORDERED: LOSA1TAB19 PO (14:12)
[2022-03-01] MEDS ORDERED: ERTA1VIA16 IJ (14:12)
[2022-03-01] MEDS ORDERED: SUMA50TA3 PO (14:12)
--- NOTE | 2022-03-01 14:15 | SNU/HH DC ---
DISCHARGE WITH HOME HEALTH DISCHARGE INFORMATION: Discharge Date: Mar 01, 2022 Final Diagnosis: Pancreatitis with fluid collection, partial splenic vein thrombosis. 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 Constipation Sepsis weakness obese, BMI >35 migrange headache htn Problems Medical Problems: (1) Failure of outpatient treatment Status: Acute (2) Intractable abdominal pain Status: Acute (3) Ketonuria Status: Acute (4) Leukocytosis Status: Acute Condition on Discharge: Stable CODE STATUS: Code Status: Full HOME HEALTH: Face to Face: I certify this patient is under my care and that I, had a face to face encounter that meets the physician face to face encounter requirements with this patient on 03/01 Medical Complications: Other Snf For: IV Infusion Therapy RN For Eval/Treatment: Yes Pt Meets Homebound Status: Fatigue w/ amb., Limited distance walking POST DISCHARGE ORDERS: Activity Instructions for Disc: Other, see below DIET AFTER DISCHARGE: Regular Wound/Incision Care: Other, see below FOLLOW-UP: PCP to follow Home Health: DR. Bowen Follow up with: ID, gen surg, poss surg in 6 weeks Follow Up With: Dr. Lr on 03/06, Additional Instructions: 2 weeks IV abx, then to PO, CT in 2 weeks to ID (Meka Gamez) and gen surg (Lluvia) TREATMENT/EQUIPMENT ORDERS: Adaptive Equipment Issued: None CERTIFICATION STATEMENT: Certification Statement: Certification Statement: Based on the above finding, I certify that this patient is confined to the home and needs intermittent usp care, physical therapy and/or speech therapy, or continues to need occupational therapy.~ This patient is under my care, and I have initiated the establishment of the plan of care.~ This patient will be followed by myself or a community physician who will periodically review the plan of care. Home Meds Active Scripts Sumatriptan Succinate (IMITREX) 50 Mg Tablet, 1 TAB PO UD PRN for HEADACHE, #12 TAB Prov:MARGARITA PETIT MD 03/01/22 Losartan/Hydrochlorothiazide (LOSARTAN-HCTZ 50-12.5 MG TAB) 1 Each Tablet, 1 TAB PO DAILY for blood pressure, #30 TAB Prov:MARGARITA PETIT MD 03/01/22 Ertapenem Sodium (INVANZ) 1 Gm Vial, 1 GM IJ DAILY for infection, #14 EACH Prov:MARGARITA PETIT MD 03/01/22 Oxycodone HCl/Acetaminophen (Percocet 5-325 mg Tablet) 1 Each Tablet, 1-2 TAB PO Q4-6HRS PRN for PAIN MDD 2 Tablet(s) for 7 Days, #30 TAB 0 Refills Prov:PRASAD PAEZ MD 10/08/21 Reported Medications Finasteride (FINASTERIDE) 5 Mg Tablet, 5 MG PO DAILY for prostate, TAB 10/03/21 Aspirin (ASPIRIN) 81 Mg Tab.chew, 81 MG PO DAILY for supplement , TAB.CHEW 10/03/21 Dextroamphetamine/Amphetamine (ADDERALL 10 MG TABLET) 10 Mg Tablet, 10 MG PO BID for adhd, TAB 10/03/21 MARGARITA PETIT MD Mar 01, 2022 14:15
--- NOTE | 2022-03-01 14:22 | PDOC3 ---
Discharge Summary Visit Information Date of Admission: Feb 15, 2022 Date of Discharge: Mar 01, 2022 Final Diagnosis Pancreatitis with fluid collection, partial splenic vein thrombosis. 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 Constipation Sepsis weakness obese, BMI >35 migrange headache htn Problems Medical Problems: (1) Failure of outpatient treatment Status: Acute (2) Intractable abdominal pain Status: Acute (3) Ketonuria Status: Acute (4) Leukocytosis Status: Acute Brief Hospital Course Allergies Allergies Coded Allergies Type Severity Reaction Last Updated Verified No Known Drug Allergies 10/08/21 No Vital Signs Vital Signs Date Time Temp Pulse Resp B/P (MAP) Pulse Ox O2 Delivery O2 Flow Rate FiO2 03/01/22 11:00 98.4 92 18 161/95 (117) 97 Room Air 98.4 Lab Results Laboratory Tests Test 02/28/22 06:20 Sodium Level 139 mmol/L (136-145) Potassium Level 3.9 mmol/L (3.5-5.1) Chloride Level 103 mmol/L (98-107) Carbon Dioxide Level 27 mmol/L (21-32) Anion Gap 9 (6-14) Blood Urea Nitrogen 11 mg/dL (8-26) Creatinine 0.8 mg/dL (0.7-1.3) Estimated GFR (Cockcroft-Gault) 120.1 BUN/Creatinine Ratio 14 (6-20) Glucose Level 145 mg/dL (70-99) Calcium Level 8.7 mg/dL (8.5-10.1) Phosphorus Level 2.9 mg/dL (2.6-4.7) Magnesium Level 2.3 mg/dL (1.8-2.4) Total Bilirubin 0.2 mg/dL (0.2-1.0) Aspartate Amino Transf (AST/SGOT) 67 U/L (15-37) Alanine Aminotransferase (ALT/SGPT) 102 U/L (16-63) Alkaline Phosphatase 63 U/L (46-116) Total Protein 8.1 g/dL (6.4-8.2) Albumin 3.1 g/dL (3.4-5.0) Albumin/Globulin Ratio 0.6 (1.0-1.7) Brief Hospital Course Mr. Doyle is a 57 old male admit with abd pain, pancretitis, started on Zosyn and had persistent fever, Also nausea, vomiting, poor p.o. intake, and generalized weakness. White count was elevated at 14.9. The patient had ketonuria. 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 Active inflammation and a small amount of free fluid adjacent to a walled- off fluid collection associated with the tail of the pancreas measuring 7.3 x 6.3 x 6.8 cm. The rest of the pancreas is within normal limits. This could be a bland collection such as an evolving pseudocyst with residual inflammation from pancreatitis, mild active pancreatitis at the pancreatic tail superimposed upon a pseudocyst or walled-off necrosis. An infected pseudocyst is possible but there is no internal gas. Though felt unlikely, follow-up is recommended to exclude a cystic malignancy. CT 02/24 IMPRESSION: Interval decrease in the size of previously seen fluid collection along the pancreatic tail now containing pockets of gas which could be related to recent intervention or improving abscess. Discharge Information Condition at Discharge: Improved Follow Up: Weeks Disposition/Orders: D/C to Home w/ HH (for IV bx, ) Scheduled Aspirin (Aspirin) 81 Mg Tab.chew, 81 MG PO DAILY for supplement , (Reported) Entered as Reported by: MOI CAMPOS on 10/03/211625 Last Action: Continued on 02/15/221618 by AJAY FRAZIER MD Dextroamphetamine/Amphetamine (Adderall 10 Mg Tablet) 10 Mg Tablet, 10 MG PO BID for adhd, (Reported) Entered as Reported by: MOI CAMPOS on 10/03/211625 Last Action: HELD on 02/15/221618 by AJAY FRAZIER MD Ertapenem Sodium (Invanz) 1 Gm Vial, 1 GM IJ DAILY for infection, #14 Prescribed by: MARGARITA PETIT on 03/01/22 1412 Finasteride (Finasteride) 5 Mg Tablet, 5 MG PO DAILY for prostate, (Reported) Entered as Reported by: MOI CAMPOS on 10/03/211625 Last Action: Continued on 02/15/221618 by AJAY FRAZIER MD Losartan/Hydrochlorothiazide (Losartan-Hctz 50-12.5 Mg Tab) 1 Each Tablet, 1 TAB PO DAILY for blood pressure, #30 Prescribed by: MARGARITA PETIT on 03/01/22 1412 Scheduled PRN Oxycodone HCl/Acetaminophen (Percocet 5-325 mg Tablet) 1 Each Tablet, 1-2 TAB PO Q4-6HRS PRN for PAIN MDD 2 Tablet(s) for 7 Days, #30 Ref 0 Prescribed by: PRASAD PAEZ on 10/08/21 1509 Last Action: HELD on 02/15/221618 by AJAY FRAZIER MD Sumatriptan Succinate (Imitrex) 50 Mg Tablet, 1 TAB PO UD PRN for HEADACHE, #12 Prescribed by: MARGARITA PETIT on 03/01/22 1412 Patient Instructions Patient Instructions face to face 4 times 48 minutes total coordination he needs outpatient f;uy with Dr. 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
--- NOTE | 2022-03-01 15:35 | NUR ---
Per [facility] policy, pt assessed and is not deemed an elopement risk at this time.
--- NOTE | 2022-03-01 18:15 | NUR ---
Pt. discharged to home with rx, verbalized understanding of discharge instructions. R picc line in place.
== END 2022-03-01 18:18 | disposition home health service (06) | DRG 871 ==
LOC: ER 12:32 → 4 NORTH 14:17 → OBSVTOIN 16:21 → 4 NORTH 02-20 22:07
PROVIDERS: ADMIT Student in an Organized Health Care Education/Training Program; ATTEND Student in an Organized Health Care Education/Training Program
PROC: 0F9G3ZX Drainage of Pancreas, Percutaneous Approach, Diagnostic (ICD-10-PCS; principal; 2022-02-20)
PROC: 06HY33Z Insertion of Infusion Device into Lower Vein, Percutaneous Approach (ICD-10-PCS; 2022-02-21)
PROC: 05HY33Z Insertion of Infusion Device into Upper Vein, Percutaneous Approach (ICD-10-PCS; 2022-02-21)
PROC: 5A09357 Assistance with Respiratory Ventilation, Less than 24 Consecutive Hours, Continuous Positive Airway Pressure (ICD-10-PCS; 2022-02-25)
DX: A41.9 Sepsis, unspecified organism (principal); K85.90 Acute pancreatitis without necrosis or infection, unspecified; K86.2 Cyst of pancreas; I82.890 Acute embolism and thrombosis of other specified veins; B96.1 Klebsiella pneumoniae [K. pneumoniae] as the cause of diseases classified elsewhere; E66.9 Obesity, unspecified; Z68.35 Body mass index [BMI] 35.0-35.9, adult; I10 Essential (primary) hypertension; K59.00 Constipation, unspecified; K76.0 Fatty (change of) liver, not elsewhere classified; N40.0 Benign prostatic hyperplasia without lower urinary tract symptoms; R62.7 Adult failure to thrive; G47.30 Sleep apnea, unspecified; D64.9 Anemia, unspecified; Z20.822 Contact with and (suspected) exposure to COVID-19; Z82.49 Family history of ischemic heart disease and other diseases of the circulatory system; Z87.891 Personal history of nicotine dependence; Z90.411 Acquired partial absence of pancreas; Z90.81 Acquired absence of spleen
CPT/HCPCS: 36415; 36569; 49405; 74177; 76700; 80048; 80053; 81001; 82150; 83036; 83690; 83735; 84100; 84443; 84478; 85007; 85025; 85027; 85610; 87040; 87075; 87086; 87186; 87426; 89050; 90471; 90670; 94660; 96361; 96374; 96375; 96376; 99152; C9113; G0378; G0379; J0696; J0780; J1170; J1335; J1885; J2185; J2250; J2270; J2405; J2543; J3010; J3475; J3480; J3490; J7030; Q9967; U0003; 99285-25